=== PATIENT | male | born 1955 | race Caucasian/White ===

== ENCOUNTER 2017-01-30 16:21 | Emergency (ER) | payer OTHER ==
[~2017-01-30] VITALS: Ht 180.3 cm; Wt 85.5 kg
[~2017-01-30 16:21] MED LIST: ASCO500C6 PO; CHOL200025 PO; CYAN3000 SL; DOXY25TA44 PO; HYDR-4003 PO
[2017-01-30 16:31] VITALS: BP 146/88; PULSE 87; RESP 16; O2SAT 97
[2017-01-30 17:32] VITALS: BP 118/72; PULSE 81; RESP 18; O2SAT 94
--- NOTE | 2017-01-30 18:07 | ED.REPORT ---
HPI-Extremity Problem Lower Date of Service Jan 30, 2017 ED Provider: Dr. Germain Pt is a 61 y/o male w/ a hx of stage IV lung cancer, CAD, presenting to the ED c /o right calf pain onset 5 days ago. The patient had a varicose vein about his right calf and for 5 days it has been red and painful. He was instructed to come to the ED by his oncologist Dr. Mccarty to rule out DVT. Pt denies fever, chills, nausea, vomiting, CP, SOB. He has a history of gastric ulcer that was surgically repaired and has no active bleeding. Nursing Notes Stated Complaint: POSSIBLE BLOOD CLOT Chief Complaint: Extremity Trauma Nursing Notes Reviewed: Yes Allergies: Coded Allergies: No Known Allergies (Verified Allergy, Unknown, 01/30/17) Scheduled Ascorbic Acid (Vitamin C) 500 Mg Capsule.er 500 MG PO OCC Cholecalciferol (Vitamin D3) (Vitamin D3) 2,000 Unit Tablet 2,000 UNIT PO DAILY Cyanocobalamin (Vitamin B-12) (B-12) 3,000 Mcg Tab.subl 3,000 MCG SL DAILY Doxylamine Succinate (Nighttime Sleep-Aid) 25 Mg Tablet 2 TAB PO PRN Scheduled PRN Hydrocodone-Acetaminophen 5-325 mg (Hydrocodone-Acetaminophen 5-325 mg) 1 Each Tablet 1 TABLET PO Q6H PRN PRN For Pain General Time Seen by MD: 18:06 Chief Complaint Other (right calf pain) Hx Obtained From: Patient Arrived By: Walk-in Onset Occurred: 5 days ago Symptom Duration: Since onset Location: : Leg right Quality: Aching, Painful Severity: Current: Moderate Severity: Maximum: Moderate Past Medical History Past Medical History Notes: Oncology: Dr. 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 Respiratory: Denies: Non-productive cough, Shortness of breath Cardiovascular: Denies: Chest pain, Palpitations GI: Denies: Nausea, Vomiting Physical Exam Initial Vital Signs Vital Signs (First) Date Time Temp Pulse Resp B/P Pulse Ox O2 Delivery O2 Flow Rate FiO2 01/30/17 16:31 36.6 87 16 146/88 97 Room Air Initial VS: Reviewed, Vital signs normal Head / Eyes: Atraumatic, Normocephalic, PERRL ENT: Mucous membranes moist, Conjunctiva normal, No scleral icterus Respiratory: Breath sounds normal, Clear to auscultation, No respiratory distress Cardiovascular: Regular rate & rhythm, Heart sounds normal, Intact distal pulses Abdomen / GI: Soft, Non-tender, No guarding, No rebound, No distention Upper Extremities: Vascular intact, Neuro intact, No swelling, No tenderness Skin: Warm, Dry, No cyanosis Neurologic: Alert, Oriented, Nonfocal Psychiatric: Mood/affect normal, Behavior normal, Normal thought content Lower Extremity / Pelvis / MS: No deformity, Neurologic intact, Vascular intact , No ligamentous injury, Tendon function NL, No compartment syndrome, No circumferential injury Palpable cord starting from the medial right ankle and ending proximal to calf. Associated erythema and tenderness consistent with superficial thrombophlebitis Ankle / Foot: Non-tender, No deformity, Neurologic intact, Vascular intact, No ligamentous injury, Tendon function NL, No compartment syndrome, No circumferential injury, No edema General/Constitutional: Awake, Alert, No acute distress, Well appearing, Cooperative, Not toxic appearing Neck: Atraumatic, Supple, No meningismus, Full range of motion, No adenopathy Interpretation & Diagnostics Interpretation & Diagnostics: US RLE: IMPRESSION: Superficial thrombosed phlebitis with occlusive thrombus in the greater saphenous vein as above. Dictated by: Sophie Floyd M.D. on 01/30/2017 at 19:28 Approved by: Sophie Floyd M.D. on 01/30/2017 at 19:30 Lab Results Interpretation Result Diagram: 01/30/17 1835 01/30/17 1835 Test 01/30/17 18:35 White Blood Count 8.1th/mm3 (3.8-10.1) Red Blood Count 4.61mil/mm3 (4.40-5.80) Hemoglobin 14.9g/dL (13.8-17.2) Hematocrit 44.4% (41.0-50.0) Mean Corpuscular Volume 96.3fL (81-100) Mean Corpuscular Hemoglobin 32.3pg (27.0-35.0) Mean Corpuscular Hemoglobin Concent 33.6% (32.0-37.0) Red Cell Distribution Width 14.1% (12.3-15.4) Platelet Count 266bil/L (150-400) Neutrophils (%) (Auto) 61.1% (40-74) Lymphocytes (%) (Auto) 25.5% (14-46) Monocytes (%) (Auto) 9.0% (4-12) Eosinophils (%) (Auto) 3.8% (0-5) Basophils (%) (Auto) 0.4% (0-3) Sodium Level 135mEq/L (134-144) Potassium Level 5.2mEq/L (3.5-5.2) Chloride Level 97mEq/L (97-108) Carbon Dioxide Level 22mmol/L (18-29) Blood Urea Nitrogen 7mg/dL (6-24) Creatinine 0.69mg/dL (0.76-1.27) Estimat Glomerular Filtration Rate 125mL/min (>59) Glucose Level 90mg/dL (60-99) Calcium Level 10.2mg/dL (8.5-10.1) Total Bilirubin 0.2mg/dL (0.0-1.2) Aspartate Amino Transf (AST/SGOT) 18U/L (0-50) Alanine Aminotransferase (ALT/SGPT) 11U/L (0-44) Alkaline Phosphatase 45U/L (25-160) Total Protein 7.7g/dL (6.4-8.4) Albumin 4.3g/dL (3.4-5.0) Hold [place] Top Tube Received (Received) Re-Eval/Medical Decision Source of Hx: Old records, Private physician Re-Evaluation/Progress : Time of Eval: 18:46 Re-Evaluation/Progress Note: Pt rechecked. Informed pt of plan for treatment. Pt understands and agrees with plan for treatment. F/U and RTER warnings given. All questions addressed. Consultation : Referral / Consult Name: Alex Yun MD Call Returned at: 18:39 Machine Featheredger And Reducer: Agrees with eval, Agrees with plan Note: Discussed case with oncology, partner of Lul. Recommends 80 mg Lovenox BID to be taken until he can see Dr. Mccarty. Counseled Regarding: Diagnosis, Need for follow-up, When/why to return to ED Discharge & Departure Impression: Primary Impression: Superficial thrombophlebitis Superficial thrombophlebitis-Involved body area: lower extremity Laterality: right Qualified Code: I80.01 - Phlebitis and thrombophlebitis of superficial vessels of right lower extremity Disposition: Home Discharge Condition All VS Reviewed: Yes Condition: Stable Patient Instructions: Enoxaparin (Injection), Superficial Thrombophlebitis (ED) Additional Instructions: The ultrasound revealed you have a superficial thrombophlebitis, which is a venous blood clot that is not YET into the deep vein. Inject 80 mg Lovenox twice daily until you are able to see Dr. Mccarty. Return to the emergency department for worsening redness, pain, swelling, or for shortness of breath, chest pain, rapid heart rate, or for other concerning symptoms. If this ends up being a cellulitis you will need to be seen earlier and placed on antibiotics. Return for fever, chills, nausea, vomiting. Follow-up with Dr. Mccarty on Thursday. Call his office and tell them you were diagnosed with a superficial blood clot and were placed on Lovenox for 3 weeks or until seen by Dr. Mccarty. Do not take any anti-inflammatories or blood thinners while taking Lovenox. The lovenox is a potent anticoagulant. Do not participate in any activities that put you at risk for traumatic injury or any activities that put you at risk for internal hemorrhage. No alcohol use. Referrals: Nitza Diamond DO (PCP) Blair Vargas MD Attestation Portions of this note were transcribed by Teddy Moreira. I, Dr. Germain personally performed the history, physical exam and medical decision-making; I reviewed and confirmed the accuracy of the information in the transcribed note. Signed by Shalini Estrada, 01/30/17 - 1814 copies to: Blair Vargas MD; Nitza Diamond Todd P DO Jan 30, 2017 18:07 TEDDY MOREIRA Jan 30, 2017 18:10
[2017-01-30 18:42] LABS: BASOPHILS % (AUTO) 0.4 % (0-3); EOSINOPHILS % (AUTO) 3.8 % (0-5); Mean Corpuscular Hemoglobin 32.3 pg (27.0-35.0); Mean Corpuscular Volume 96.3 fL (81-100); NEUTROPHILS % (AUTO) 61.1 % (40-74); Platelet Count 266 bil/L (150-400)
[2017-01-30] MEDS ORDERED: HYDROmorphone 1 mg/mL Inj IM ONE (18:50)
--- NOTE | 2017-01-30 19:32 | DRSVH ---
PROCEDURE: US VEINOUS LEG DUPLEX UNILATERAL, RIGHT INDICATIONS: RIGHT LOWER LEG PAIN SWELLING TECHNIQUE: Real-time imaging, as well as color and pulse Doppler interrogation, were performed of the lower extr emity deep veins from the inguinal ligament to the popliteal fossa. COMPARISON: None. FINDINGS: There is occlusive thrombus within the greater saphenous vein from the distal thigh extendi ng to the level of the foot. Superficial thrombophlebitis is present. Deep veins demonstrate no evide nce of thrombosis. IMPRESSION: Superficial thrombosed phlebitis with occlusive thrombus in the greater saphenous vein as above. Dictated by: Sophie Floyd M.D. on 01/30/2017 at 19:28 Approved by: Sophie Floyd M.D. on 01/30/2017 at 19:30
[2017-01-30 19:34] VITALS: BP 139/75; PULSE 89; RESP 18; O2SAT 98
[2017-02-17] MEDS ORDERED: MULT-1018 PO (14:08)
[2017-02-17] MEDS ORDERED: ENOX80DI8 SUBQ (14:08)
[2017-02-20] MEDS ORDERED: TADA20TA PO (15:01)
[2017-03-13] MEDS ORDERED: DOCU-41 PO (11:18)
[2017-03-23] MEDS ORDERED: CYCL10TA9 PO (14:43)
== END 2017-01-30 19:36 | disposition home or self-care (01) ==
LOC: SED 16:21
DX: I80.01 Phlebitis and thrombophlebitis of superficial vessels of right lower extremity (principal); I25.10 Atherosclerotic heart disease of native coronary artery without angina pectoris; F17.200 Nicotine dependence, unspecified, uncomplicated
CPT/HCPCS: 36415; 80053; 85025; 93971; 96372; 99284; J1170; J1650

== ENCOUNTER 2017-02-23 09:00 | Day surgery (SDC) | payer OTHER ==
[~2017-02-23] VITALS: Ht 180.3 cm; Wt 83.2 kg
[~2017-02-23 09:00] MED LIST changes: +0.9% Sodium Chloride 1,000 ML IV PRN; -ASCO500C6 PO; -CHOL200025 PO; -CYAN3000 SL; -DOXY25TA44 PO; +MULT-1018 PO; +Sodium Chloride LOK Flush 10 mL Syringe IV PRN; +TADA20TA PO; +fentaNYL-PF 50 mCg/mL 2 mL Inj IVPUSH PRN
[2017-02-23 09:13] VITALS: BP 125/80; PULSE 76; RESP 16; O2SAT 99
[2017-02-23] MEDS ORDERED: LOV80 SUBQ (09:15)
--- NOTE | 2017-02-23 10:34 | PCM.ENDCOL ---
Colonoscopy Date of Service: Feb 23, 2017 Physician Jonathan Mclaughlin MD Pre Procedure Diagnosis: Abnormal CT and history of polyps Post Procedure Dx & Findings: Suspect stricture diverticuli polyps Procedure Colonoscopy PROCEDURE IN DETAIL: Prep adequate After unremarkable rectal examination the Olympus video colonoscope was inserted patient's anal canal and was advanced to possible stricture. At that point, air insufflation did not open up the lumen. We inserted water and lumen did not open up as well. Also in that area significant scarring noted. Also in the sigmoid colon there were diverticula Scope was withdrawn systematically. Visualized colonic mucosa showed healthy shiny mucosa with normal healthy- appearing vasculature. In the rectosigmoid junction there were 3 polyps. Two Polyps were 1 cm in size. These are resected completely using hot snare. The other polyp was 3 mm in size which was resected completely using cold snare. In the rectum retroflexion was done which showed hemorrhoids. Anal canal was inspected carefully on the way out and hemorrhoids noted. Impression Suspect stricture Polyps 3 status post complete removal Hemorrhoids Recommendation Double contrast barium enema Follow up in the GI clinic. Presedation Assessment Risks and Benefits Informed consent was obtained from the patient after all risks and benefits including but not limited to drug reaction, infection, pain, bleeding, perforation, as well as alternatives were discussed. Patient monitoring Continuous pulse oximetry, cardiac monitoring, blood pressure monitoring, IV access, and oxygen at 2L per nasal cannula. Periprocedural Fentanyl: Fentanyl 150mcg Incrementally Midazolam: Midazolam 6mg Incrementally Complications There were no periprocedural complications identified. Post Procedure Plan Post Procedure Recommendations 1. Restrict activities today. 2. Resume normal activities in the morning. 3. Resume medications. 4. Patient informed of normal post procedure side effects as bloating, drowsiness, blood streaking in the stool. 5. average risk CRCS. If colon polyps come back as: -Hyperplastic- can repeat colonoscopy in 10 years -Tubular adenoma- repeat colonoscopy in 5 years -Tubulovillous/villous adenoma- repeat colonoscopy in 3 years -If any dysplasia- return to clinic as soon as possible 6. Please don't hesitate to call me with any questions. Jonathan Mclaughlin MD Feb 23, 2017 10:34
[2017-02-23 10:39] VITALS: BP 111/68; PULSE 64; RESP 16; O2SAT 98
[2017-02-23 10:47] VITALS: BP 117/69; PULSE 72; RESP 14; O2SAT 96
[2017-02-23 10:57] VITALS: BP 133/64; PULSE 64; RESP 14; O2SAT 98
--- NOTE | 2017-02-24 11:48 | PATH ---
SURGICAL PATHOLOGY Attending Physician:Jonathan Mclaughlin M.D. CASE STATUS: Signed Out PATIENT NAME: ANGIE KAISER PID: [id number] : 1955 DATE COLLECTED:02/23/2017 17:20 SPECIMEN: Colon, Biopsy CLINICAL HISTORY: POLYPS 1). RECTAL SIGMOID POLYPS X3 FINAL DIAGNOSIS: 1.RECTOSIGMOID POLYPS: TUBULAR ADENOMA INVOLVING ALL THREE BIOPSY FRAGMENTS. ICD10 CODE D12.7 GROSS DESCRIPTION: The specimen is received in one formalin filled container labeled with the patient's name, sublabeled "rectal sigmoid polyps" and consists of 3 portions of tissue which aggregate to 0.9 x 0.6 x 0.5 CM. The specimen is entirely submitted in one cassette. 02/23/2017 [facility] MICRO DESCRIPTION: See diagnosis. ICD-9 CODES: CPT CODES: 1: 42447 Electronically Signed Out Moe Veronica MD [facility] Pathology [facility] [address], [place] [address] Technical component performed at [facility], [facility] [address], [place], [address]
[2017-03-13] MEDS ORDERED: DOCU-41 PO (11:18)
[2017-03-23] MEDS ORDERED: CYCL10TA9 PO (14:43)
== END 2017-02-23 23:59 | disposition home or self-care (01) ==
LOC: END 09:00
PROVIDERS: ATTEND Internal Medicine
DX: D12.7 Benign neoplasm of rectosigmoid junction (principal); K64.8 Other hemorrhoids; K52.9 Noninfective gastroenteritis and colitis, unspecified; Z86.010 Personal history of colon polyps; Z85.118 Personal history of other malignant neoplasm of bronchus and lung; Z92.21 Personal history of antineoplastic chemotherapy
CPT/HCPCS: 45385; 99153; G0500; J7030

== ENCOUNTER 2017-03-20 12:58 | Emergency (ER) | payer OTHER ==
[~2017-03-20] VITALS: Ht 180.3 cm; Wt 84.1 kg
[~2017-03-20 12:58] MED LIST changes: -0.9% Sodium Chloride 1,000 ML IV PRN; +DOCU-41 PO; -Sodium Chloride LOK Flush 10 mL Syringe IV PRN; -fentaNYL-PF 50 mCg/mL 2 mL Inj IVPUSH PRN
[2017-03-20 13:04] VITALS: BP 169/85; PULSE 107; RESP 12; O2SAT 95
--- NOTE | 2017-03-20 14:14 | ED.REPORT ---
HPI-General Illness Date of Service March 20, 2017 ED Provider: Omkar Trujillo MD 61 y/o male with stage 4 lung cancer presents to the ED complaining of left leg pain, onset 4-5 days. Associated sx include left leg swelling and erythema. He also reports discoloration of the toes on the left foot. The pt states his sx are similar to the sx he had when he was diagnosed with superficial thrombophlebitis in his right leg approximately a month ago. At the time, he was treated with Lovenox injections. The pt also complains of left flank pain which radiates up to his left shoulder. He states the pain worsens when he takes a deep breath or sits up with his legs hanging. Pt is currently taking hydrocodone for hip pain. Nursing Notes Stated Complaint: POSS BLOOD CLOTS IN LEGS/BACK PAIN Chief Complaint: Extremity Trauma Nursing Notes Reviewed: Yes Allergies: Coded Allergies: No Known Allergies (Verified Allergy, Unknown, 01/30/17) Scheduled Enoxaparin (Lovenox) 80 Mg/0.8 Ml Syringe 80 MG SUBQ Q12 Multivitamin (Multi Vitamin Daily) 1 Each Tablet 1 EACH PO DAILY Scheduled PRN Docusate Sodium (Colace) 100 Mg Capsule 100 MG PO QAM PRN PRN For Constipation Hydrocodone-Acetaminophen 5-325 mg (Hydrocodone-Acetaminophen 5-325 mg) 1 Each Tablet 1 TABLET PO Q6H PRN PRN For Pain Tadalafil (Cialis) 20 Mg Tablet 20 MG PO PRN PRN PRN for sexual activity As directed by physician. General Time Seen by MD: 14:13 Chief Complaint Other (Left leg pain) Hx Obtained From: Patient Arrived By: Walk-in Sudden in Onset?: No Onset Occurred: 4 days ago Symptom Duration: Since onset Location: : Leg left Quality: Painful Radiation: : Back: Shoulder Severity: Current: Moderate Severity: Maximum: Moderate Recent Healthcare: Recent doctor visit Similar Sx Previous: Yes Past Medical History Past Medical History Notes: Oncology: Dr. 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 Physical Exam Vital Signs Vital Signs Date Time Temp Pulse Resp B/P Pulse Ox O2 Delivery O2 Flow Rate FiO2 03/20/17 13:04 37.2 107 12 169/85 95 Room Air Initial VS: Reviewed Head / Eyes: Atraumatic, Normocephalic Neck: Supple, Full range of motion Respiratory: Breath sounds normal, No respiratory distress Neurologic: Alert, Oriented, Nonfocal General/Constitutional: Awake, Alert, Cooperative Cardiovascular: Heart rate NL, Regular rhythm, Heart sounds NL, Peripheral circulation NL, Pulses = bilaterally Tristen's sign negative Abdomen: Atraumatic, Soft, No guarding, No rebound Tenderness/Guarding/Rebound: Positive: Tender diffuse (Mild) Upper Extremities Upper Extremity / MS: Atraumatic, Full range of motion, No swelling, No erythema, Neurologic intact, Vascular intact Lower Extremity / Pelvis / MS: Atraumatic, Full range of motion Left Thigh: Positive: Erythema present, Tenderness present... (Mild mid-thigh ) Interpretation & Diagnostics PROCEDURE: US VENOUS LEG DUPLEX BILATERAL IMPRESSION: No DVT in the lower extremities. There is superficial thrombophlebitis involving the right greater saphenous vein. Dictated by: Black Donovan M.D. on 03/20/2017 at 16:24 Transcribed by: NEGIN on 03/20/2017 at 16:26 Lab Results Interpretation Test 03/20/17 13:32 03/20/17 14:39 Urine Color Yellow (YELLOW) Urine Appearance Clear (CLEAR,HAZY) Urine pH 6.5 (5.0-8.0) Urine Specific [place] 1.015 (1.003-1.035) Urine Protein Tracemg/dL (NEG,TRACE) Urine Glucose (UA) Negativemg/dL (NEGATIVE) Urine Ketones Tracemg/dL (NEGATIVE) Urine Occult Blood Trace (NEGATIVE) Urine Nitrite Negative (NEGATIVE) Urine Bilirubin Negative (NEGATIVE) Urine Urobilinogen Normalmg/dL (NORMAL) Urine Leukocyte Esterase Negative (NEGATIVE) Urine RBC 3-10/hpf (0-2) Urine WBC 0-5/hpf (0-5) Urine Epithelial Cells Occasional/hpf (NONE-MOD) Urine Crystals None seen (NONE SEEN) Urine Bacteria None/hpf (NONE-FEW) Urine Hyaline Casts None/lpf (NONE) Urine Granular Casts None seen (NONE SEEN) Urine Waxy Casts None seen (NONE SEEN) Urine Red Blood Cell Casts None seen (NONE SEEN) Urine White Blood Cell Casts None seen (NONE SEEN) Urine Mucus Present (None Seen) Urine Trichomonas None seen (NONE SEEN) Urine Yeast None (NONE SEEN) Urinalysis Comment None Urine Culture Reflexed Not indicated Hold Urine Received (Received) Re-Eval/Medical Decision Source of Hx: Old records Time of Eval: 15:20 Re-Evaluation/Progress Note: military technician reports no DVT seen. Time of Eval: 15:53 Patient Status: Condition improved Re-Evaluation/Progress Note: Rechecked pt. Discussed lab, imaging results and diagnosis. Informed the pt Dr. Mccarty will be consulted. Time of Eval: 16:25 Re-Evaluation/Progress Note: Rechecked pt. Discussed consult with Dr. Mccarty and diagnosis. Informed the pt of the plan to discharge. Pt understands and agrees with plan. F/U instructions and RTER warning given. All questions addressed. Consultation : Referral / Consult Name: Blair Vargas MD Consulted With: Cigarette Making Machine Hopper Feeder Call Returned at: 16:23 Summer Counselor: Will see in office, Agrees with eval, Agrees with plan Note: Dr. Vargas recommends prescription of Lovenox and call to make an appointment. Counseled Regarding: Diagnosis, Lab results, Need for follow-up, When/why to return to ED Discharge & Departure Primary Impression: Superficial thrombophlebitis Superficial thrombophlebitis-Involved body area: lower extremity Laterality: left Qualified Code: I80.02 - Phlebitis and thrombophlebitis of superficial vessels of left lower extremity Disposition: Home Discharge Condition All VS Reviewed: Yes Patient Instructions: Superficial Thrombophlebitis (ED) Additional Instructions: Your imaging results show superficial thrombophlebitis. I consulted Dr. Vargas who recommends a Lovenox prescription. Follow up with Dr. Vargas within the next 2 weeks. Call Thursday for an appointment. Return to the emergency department in case of severe pain, swelling or any new or concerning symptoms. Referrals: Blair Vargas MD (PCP) Scribe Attestation Portions of this note were transcribed by Dang Dai. I, , personally performed the history, physical exam and medical decision-making;I reviewed and confirmed the accuracy of the information in the transcribed note. Signed by Shalini Perez. 03/20/17 [id number] copies to: Blair Vargas MD, Kirk H MD March 20, 2017 14:14 Dang Dai March 20, 2017 14:23
[2017-03-20] MEDS ORDERED: HYDROcodone-APAP 7.5-325 mg Tablet PO ONE (14:25)
[2017-03-20 15:00] LABS: APPEARANCE,URINE CLEAR (CLEAR,HAZY); COLOR,URINE YELLOW (YELLOW); OCCULT BLOOD,URINE TRACE (NEGATIVE); PH,URINE 6.5 (5.0-8.0); UROBILINOGEN,URINE NORMAL (NORMAL)
--- NOTE | 2017-03-20 16:26 | DRSVH ---
PROCEDURE: US VENOUS LEG DUPLEX BILATERAL INDICATIONS: redness and swelling TECHNIQUE: Real-time imaging, as well as color and pulse Doppler interrogation, were performed of the deep veins of both legs from the inguinal ligament to the popliteal fossa. COMPARISON: [facility], US, US VENOUS LEG DPLX UNI RT, 02/18/2017, 12:36. FINDINGS: The deep veins are normally compressible, and free of intraluminal thrombus. Color and pu lse Doppler demonstrate normal phasic intravascular flow. There is normal augmentation response to d istal compression maneuver. Filling defects in the greater saphenous vein are consistent with superf icial thrombophlebitis. IMPRESSION: 1. No DVT in the lower extremities. 2. Superficial thrombophlebitis involving greater saphenous veins bilaterally. Dictated by: Black Donovan M.D. on 03/20/2017 at 16:24 Transcribed by: NEGIN on 03/20/2017 at 16:26 Approved by: Black Donovan M.D. on 03/20/2017 at 17:26
[2017-03-20] MEDS ORDERED: LOV80 SUBQ (16:29)
[2017-03-23] MEDS ORDERED: CYCL10TA9 PO (14:43)
== END 2017-03-20 16:41 | disposition home or self-care (01) ==
LOC: SED 12:58
DX: I80.02 Phlebitis and thrombophlebitis of superficial vessels of left lower extremity (principal); R10.32 Left lower quadrant pain; M25.551 Pain in right hip; I25.10 Atherosclerotic heart disease of native coronary artery without angina pectoris; F17.200 Nicotine dependence, unspecified, uncomplicated

== ENCOUNTER 2017-04-03 15:17 | Inpatient (IN) | payer OTHER, MEDICAID ==
[~2017-04-03] VITALS: Ht 180.3 cm; Wt 81.9 kg
[~2017-04-03 15:17] MED LIST changes: +CYCL10TA9 PO
[2017-04-03 15:18] VITALS: BP 156/82; PULSE 96; RESP 22; O2SAT 96
--- NOTE | 2017-04-03 15:43 | ED.REPORT ---
HPI-Chest Pain 40 and Over Date of Service Apr 03, 2017 ED Provider: Osman Costa MD Pt is a 61 y/o male who just started anticoagulation on Warfarin yesterday w/ a hx of stage IV lung CA with mets to the brain, current LLE DVT, prior PE, CAD , emphysema, presenting to the ED c/o gradually worsening right-sided CP with radiation to the shoulder and neck onset 4 days ago. The patient underwent a gamma knife radiation therapy for brain metastases 4 days ago and reports he was in an awkward position for 40 minutes which may have caused him to strain his right chest muscles. He describes his pain as sharp and pleuritic. The patient was previously on a 4 week course of Lovenox for a current LLE DVT and was just started on Warfarin due to multiple prior DVTs and PEs and had all of these therapies stopped until yesterday due to an upcoming colonoscopy. He c/o associated SOB. He denies fever, chills, cough. His pain is significantly exacerbated by bending or twisting movements and is relieved by sitting up and leaning forward. He had similar symptoms 20 years ago at which time he was diagnosed with pleurisy. Nursing Notes Stated Complaint: RIGHT SIDE PAIN/CHEST PAIN Chief Complaint: Chest Pain Nursing Notes Reviewed: Yes (Panviva not reconciled) Allergies: Coded Allergies: No Known Allergies (Verified Allergy, Unknown, 01/30/17) Scheduled Multivitamin (Multi Vitamin Daily) 1 Each Tablet 1 EACH PO DAILY Scheduled PRN Cyclobenzaprine (Cyclobenzaprine) 10 Mg Tablet 10 MG PO TID PRN PRN Spasm Docusate Sodium (Colace) 100 Mg Capsule 100 MG PO QAM PRN PRN For Constipation Hydrocodone-Acetaminophen 5-325 mg (Hydrocodone-Acetaminophen 5-325 mg) 1 Each Tablet 1 TABLET PO Q6H PRN PRN For Pain oxyCODONE (oxyCODONE) 5 Mg Tablet 5-10 MG PO Q4H PRN PRN For Pain General Time Seen by MD: 15:39 Chief Complaint Chest pain Hx Obtained From: Patient Arrived By: Walk-in Sudden in Onset?: No Onset Occurred: 3 days ago Symptom Duration: Since onset Location: : Chest right Quality: Pleuritic, Sharp, Stabbing Radiation: : Neck: Shoulder right Severity: Current: Moderate Severity: Maximum: Moderate Recent Healthcare: Recent doctor visit, Recent hospitalization, Recent testing Similar Sx Previous: Yes Risk Factors Well's Criteria for PE Clin suspicion of DVT (3), Most likely due to PE (3), Prior DVT or PE (1.5), Cancer Tx past 6mo (1) Well's PE Score: >6 pts (high risk 66%) Past Medical History Past Medical History Notes: Oncology: Dr. 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, mets to brain Severe osteoarthritis of the right hip Chronic alcoholism Mild emphysema CAD Current LLE DVT - as of 04/03/17 Past Surgical History Gastric ulcer repair Smoking History Current Every Day Smoker Social History Alcohol Use: >5 per day Drug Use: THC Ambulatory Status Independent Review of Systems Constitutional: Denies: Chills, Fever Respiratory: Reports: Dyspnea on exertion, Pleuritic pain, Shortness of breath , Denies: Non-productive cough Cardiovascular: Reports: Chest pain Musculoskeletal: Reports: Neck pain (Tight feeling) Complete sys rev & neg: except as marked. Physical Exam Initial Vital Signs Vital Signs (First) Date Time Temp Pulse Resp B/P Pulse Ox O2 Delivery O2 Flow Rate FiO2 04/03/17 15:18 37.4 96 22 156/82 96 Room Air Initial VS: Reviewed, Vital signs normal Head / Eyes: Atraumatic, Normocephalic, PERRL ENT: Mucous membranes moist, Conjunctiva normal, No scleral icterus Neck: Supple, Full range of motion Skin: Warm, Dry, No cyanosis Neurologic: Alert, Oriented, Nonfocal Psychiatric: Mood/affect normal, Behavior normal General/Constitutional: Awake, Alert Distress / Hydration: Positive: Distress moderate Appearance / Presentation: Positive: Uncomfortable Respiratory / Chest: Atraumatic, Breath sounds = bilat Not tachypneic. Significant discomfort with pleuritic pain. Slightly diminished breath sounds Cardiovascular: Heart rate NL, Regular rhythm, Heart sounds NL, No gallop, No murmurs, No rubs Heart Rate / Rhythm: Negative: Tachycardia Abdomen: Atraumatic, Soft, Non-tender Lower Extremity / Pelvis / MS: Atraumatic, No deformity, Neurologic intact, Vascular intact Left Leg / Calf: Positive: Swelling present... (Moderate) History of DVT in legs Interpretation & Diagnostics Lab Results Interpretation Result Diagram: 6/2/17 1555 04/03/17 1555 Test 04/03/17 15:55 White Blood Count 12.1th/mm3 (3.8-10.1) Red Blood Count 4.66mil/mm3 (4.40-5.80) Hemoglobin 15.3g/dL (13.8-17.2) Hematocrit 44.2% (41.0-50.0) Mean Corpuscular Volume 94.8fL (81-100) Mean Corpuscular Hemoglobin 32.8pg (27.0-35.0) Mean Corpuscular Hemoglobin Concent 34.6% (32.0-37.0) Red Cell Distribution Width 13.5% (12.3-15.4) Platelet Count 334bil/L (150-400) Neutrophils (%) (Auto) 76.2% (40-74) Lymphocytes (%) (Auto) 12.2% (14-46) Monocytes (%) (Auto) 9.9% (4-12) Eosinophils (%) (Auto) 1.2% (0-5) Basophils (%) (Auto) 0.2% (0-3) Prothrombin Time 10.6sec (8.1-12.5) Prothromb Time International Ratio 0.99ratio Sodium Level 135mEq/L (134-144) Potassium Level 4.1mEq/L (3.5-5.2) Chloride Level 95mEq/L (97-108) Carbon Dioxide Level 20mmol/L (18-29) Blood Urea Nitrogen 9mg/dL (6-24) Creatinine 0.49mg/dL (0.76-1.27) Estimat Glomerular Filtration Rate 185mL/min (>59) Glucose Level 97mg/dL (60-99) Calcium Level 9.4mg/dL (8.5-10.1) Magnesium Level 2.1mg/dL (1.6-2.6) Total Bilirubin 0.5mg/dL (0.0-1.2) Aspartate Amino Transf (AST/SGOT) 118U/L (0-50) Alanine Aminotransferase (ALT/SGPT) 168U/L (0-44) Alkaline Phosphatase 68U/L (25-160) Troponin T < 0.010ug/L (0.0-0.011) Total Protein 7.8g/dL (6.4-8.4) Albumin 3.8g/dL (3.4-5.0) Lab Results Interpretation: CBC positive leukocytosis CMP normal Troponin negative INR subtherapeutic as expected, having just started warfarin yesterday ECG Interpretation ECG Interpretation: No ischemic changes. No S1Q3T3 No interval changes compared with 09/2016 Time: 15:46 Interpreted by: ED physician Normal ECG Interpretation: Normal sinus rhythm (Rate of 97) X-Ray Chest Interpretation Chest Xray Interpretation: IMPRESSION: 1. Probable mild atelectasis in the lung bases without definite acute cardiopulmonary disease. Dictated by: Jovi Noel M.D. on 04/03/2017 at 16:20 Approved by: Jovi Noel M.D. on 04/03/2017 at 16:21 View: Portable, 1 view Interpretation / Wet Read by: Interpret - Radiologist CT Chest Interpretation IMPRESSION: Bilateral pulmonary emboli predominately on the right but also on the left involving the middle and lower thirds of the lung parenchyma/pulmonary arteries. Mild alveolar edema within the right lower lung suggest mild ischemic injury in the area of maximal load of pulmonary emboli. Dictated by: Mitchel Fried M.D. on 04/03/2017 at 17:31 Study type: CT pulm angiogram Interpretation / Wet Read by: Interpret - Radiologist Re-Eval/Medical Decision Med Decision/Clinical Course This is a 61-year-old male with known lung CA, has had metastases to the brain is undergoing gamma knife therapy, who is had problems with thrombophlebitis of the legs. Apparently he was on 4 weeks of Lovenox therapy, and then developed worsening following bronchitis with extension into a deep vein of the left leg- but tells me that insurance refused to cover his anticoagulation at that time so has not been on it. He had a gamma knife session on Thursday, has been having worsening pleuritic chest pain since then, and so the oncology center she did get him started on warfarin yesterday, was able given some Lovenox in the clinic yesterday and is coming back in for a dose of Lovenox today which he did receive-but is noted to have severe right-sided pleuritic chest pain, shortness of breath-so was sent to the ED. She appears clinically uncomfortable on clutching his right-sided describing severe pleuritic pain. I is not tachycardic, hypoxic, or hypotensive. He does have clinical findings of the left lower extremity DVT on clinical exam. The patient is empirically started on a heparin drip given the high risk presentation. The chest x-ray is negative. CT scans positive for bilateral pulmonary emboli. His troponin level is negative. Without a bump. He is not require or merit tPA at this time. The plan is admission with continued anticoagulation. At this point is social work consultation versus since and getting him in area anticoagulation medications is indicated and been requested. [facility]. The patient's using titrated pain medicine for pain control. Source of Hx: Old records Time of Eval: 17:26 Re-Evaluation/Progress Note: Pt rechecked. Informed pt of need for admission. Pt understands and agrees with plan for admission. All questions addressed. Consultation : Referral / Consult Name: Liban Lopez MD Consulted With: Hospitalist Requested Call at: 17:24 Call Returned at: 17:24 Compliance Consultant: Will see patient, Agrees with eval, Agrees with plan, Accepts admit Differential Diagnosis: Positive: Chest pain, acute, Pulmonary embolism, Negative: Acute coronary syndrome, Dysrhythmia, Gun shot wound chest, Hypertroph cardiomyopathy, Pneumomediastinum, Pneumonia, Pneumothorax, Pulmonary edema Counseled Regarding: Diagnosis, Lab results, Need for admission Discharge & Departure Primary Impression: Pulmonary emboli Pulmonary embolism type: other Chronicity: acute Acute cor pulmonale presence: without acute cor pulmonale Qualified Code: I26.99 - Other pulmonary embolism without acute cor pulmonale Additional Impression: Left leg DVT Affected thrombotic vein of extremity: unspecified vein of extremity Chronicity: acute Qualified Code: I82.402 - Acute embolism and thrombosis of unspecified deep veins of left lower extremity Disposition: ADMITTED TO HOSPITAL Discharge Condition All VS Reviewed: Yes Condition: Stable Referrals: Nitza Diamond DO (PCP) Crit Care Except Billable Proc Time Spent: 30-74 minutes Services Performed: Patient management by me, Time spent at bedside, Reviewing test results, Reviewing imaging, Discussing patient care, Documentation in record Scribe Attestation Portions of this note were transcribed by Teddy Moreira and Cat Aiken. I, Dr. Costa personally performed the history, physical exam and medical decision -making; I reviewed and confirmed the accuracy of the information in the transcribed note. Signed by: Teddy Moreira and Shalini Casas, 04/03/17 and 16:50. copies to: Nitza Diamond Matthew F MD Apr 03, 2017 15:43 Cat Brown Apr 03, 2017 15:58 TEDDY MOREIRA Apr 03, 2017 16:50
[2017-04-03 15:59] VITALS: BP 153/77; PULSE 97; RESP 22; O2SAT 97
[2017-04-03] MEDS ORDERED: Heparin 5,000 Unit/mL Inj IVPUSH ONE (16:00)
[2017-04-03] MEDS ORDERED: HYDROmorphone 1 mg/mL Inj IVPUSH ONE (16:00)
[2017-04-03] MEDS ORDERED: Ondansetron 2 mg/mL 2 mL Inj IVPUSH ONE (16:00)
[2017-04-03] MEDS ORDERED: Heparin 25K Unit/500mL 0.45 NS 25,000 UNIT in IV Premix 1 EACH IV ONE (16:00)
[2017-04-03 16:12] LABS: BASOPHILS % (AUTO) 0.2 % (0-3); EOSINOPHILS % (AUTO) 1.2 % (0-5); MONOCYTES % (AUTO) 9.9 % (4-12); Mean Corpuscular Hemoglobin 32.8 pg (27.0-35.0); Mean Corpuscular Volume 94.8 fL (81-100); NEUTROPHILS % (AUTO) 76.2 % (40-74); Platelet Count 334 bil/L (150-400)
--- NOTE | 2017-04-03 16:23 | DRSVH ---
PROCEDURE: X-RAY CHEST ONE VIEW, PORTABLE ([id number]) INDICATIONS: CHEST PAIN TECHNIQUE: One view of the chest was acquired. COMPARISON: None. FINDINGS: Surgical changes and devices: None. Lungs and pleura: No pleural effusions or pneumothorax. There are a few linear peripheral opacities in the lung bases likely representing atelectasis. Mediastinum: Mediastinal contours appear normal. Heart size is normal. Bones and chest wall: No suspicious bony lesions. Overlying soft tissues appear unremarkable. IMPRESSION: 1. Probable mild atelectasis in the lung bases without definite acute cardiopulmonary disease. Dictated by: Jovi Noel M.D. on 04/03/2017 at 16:20 Approved by: Jovi Noel M.D. on 04/03/2017 at 16:21
[2017-04-03 16:28] LABS: INR 0.99 ratio
[2017-04-03 16:35] LABS: TROPONIN T < 0.010 ug/L (0.0-0.011)
[2017-04-03 16:46] LABS: Magnesium 2.1 mg/dL (1.6-2.6)
[2017-04-03 16:56] VITALS: BP 134/72; PULSE 94; RESP 30; O2SAT 94
[2017-04-03] MEDS: HYDROmorphone 0.5 mg/0.5 mL iSecure Syringe IVPUSH PRN ×3 (17:31→18:57)
[2017-04-03 17:40] VITALS: BP 156/87; PULSE 92; RESP 30; O2SAT 95
--- NOTE | 2017-04-03 17:41 | DRSVH ---
PROCEDURE: CT ANGIO CHEST PULMONARY EMBOLISM ([id number]) INDICATIONS: Pleuritic R CP, LLE DVT TECHNIQUE: After the administration of intravenous contrast, 2 mm thick sections acquired from the pulmonary api dio to the posterior costophrenic angles. 3-dimensional maximum intensity projection (MIP) coronal a nd sagittal reformats were then acquired through the thorax. For radiation dose reduction, the follo wing was used: automated exposure control, adjustment of mA and/or kV according to patient size. COMPARISON: None. FINDINGS: Image quality: Excellent. Pulmonary arteries: Pulmonary arteries are normal in size, and demonstrate no intraluminal filling d efects to suggest central pulmonary embolism. Lungs and pleura: Lungs are clear. No pleural effusions or pneumothorax. Central and peripheral ai rways are patent. Mediastinum: Heart size is normal, without pericardial effusion. No mediastinal or hilar adenopathy . Thoracic aorta is normal in caliber and enhancement. Esophagus is normal in caliber, without hiat al hernia. Bones and chest wall: No suspicious bony lesions. Ribs and thoracic spine appear intact throughout. Thyroid gland appears normal where well visualized. No axillary or supraclavicular adenopathy. Abdomen: Visualized upper abdominal solid organs appear normal in the early arterial phase of enhanc ement. IMPRESSION: Bilateral pulmonary emboli predominately on the right but also on the left involving the middle and lower thirds of the lung parenchyma/pulmonary arteries. Mild alveolar edema within the r ight lower lung suggest mild ischemic injury in the area of maximal load of pulmonary emboli. Dictated by: Mitchel Fried M.D. on 04/03/2017 at 17:31 Approved by: Mitchel Fried M.D. on 04/03/2017 at 17:40
[2017-04-03] MEDS ORDERED: Alum-Mag Hydrox-Simeth 30 mL Suspension PO PRN (18:10)
[2017-04-03] MEDS ORDERED: Ondansetron 2 mg/mL 2 mL Inj IVPUSH PRN (18:10)
[2017-04-03] MEDS ORDERED: Polyethylene Glycol (PEG) 17 Gm Powder PO PRN (18:10)
[2017-04-03] MEDS ORDERED: OXYC5TAB72 PO (18:11)
[2017-04-03] MEDS ORDERED: Heparin 5,000 Unit/mL Inj IVPUSH PRN (18:15)
[2017-04-03] MEDS ORDERED: Heparin 25K Unit/500mL 0.45 NS 25,000 UNIT in IV Premix 1 EACH IV SCH (18:15)
--- NOTE | 2017-04-03 18:24 | PCM.HPMED ---
Subjective Date of Service Apr 03, 2017 Primary Provider: Admitting Physician: Liban Lopez MD Primary Care Physician: Nitza Diamond DO Attending Physician: Liban Lopez MD Admit Status: From the Emergency Department Chief Complaint: Chest pain with deep inspiration History of Present Illness: Matthew Reynolds is a 61 year old man with a PMH of stage IV lung cancer with mets to the brain s/p chemotherapy and Gamma knife procedure 4 days ago. The patient was previously on a 4 week course of Lovenox therapy which ended about 3 weeks ago for a LLE DVT, he then presented to the ED on 03/18 with a LLE SVT, because he was about to undergo a colonoscopy and the aforementioned Gamma knife procedure it was determined that he should without further anti-coagulation beyond aspiring until after his Gamma knife procedure; he just restarted Warfarin yesterday. 4 days following his Gamma knife procedure he began to experience right sided chest pain that was aggravated by deep inspiration, he initially attributed this to the awkward position he was in for the procedure. However, over the ensuing days this pain worsened, and at the insistence of his he presented to the ED for further evaluation. He denies chest pain, hemoptysis, palpitations, abdominal pain. He states that his left leg has remained swollen and tender without much improvement since his ER visit on . He continues to smoke 1/2-1 pack daily, and >5 alcoholic beverages daily. In the ED that patient was normotensive with a HR in the 90s, ECG not without S1Q3T3 or ischemic changes initial trop negative. CT angio revealed BL PE R>L with mild alveolar edema within the right lung suggestive of mild ischemic injury in the area of maximal load of pulmonary emboli. He was started on Heparin drip in the ED and given Dilaudid IV for pain control to good but transient effect. Review of Systems: Comprehensive ROS negative except as listed above in the HPI Allergies Coded Allergies: No Known Allergies (Verified Allergy, Unknown, 01/30/17) Home Medications Cyclobenzaprine (Cyclobenzaprine) 10 Mg Tablet 10 MG PO TID PRN PRN Spasm Docusate Sodium (Colace) 100 Mg Capsule 100 MG PO QAM PRN PRN For Constipation Hydrocodone-Acetaminophen 5-325 mg (Hydrocodone-Acetaminophen 5-325 mg) 1 Each Tablet 1 TABLET PO Q6H PRN PRN For Pain Tadalafil (Cialis) 20 Mg Tablet 20 MG PO PRN PRN PRN for sexual activity PMH Non-small cell adenocarcinoma of the right lung - Stage IV, mets to brain Severe osteoarthritis of the right hip Chronic alcoholism Mild emphysema CAD . Surgical History Gastric ulcer repair Family History Family history of cancer of unknown type in multiple relatives Social History Hx Alcohol Use: Yes (rare) Hx Substance Use: Yes Smoking Status: Current Every Day Smoker Exam Vital Signs Vital Sign - Last Date Time Temp Pulse Resp B/P Pulse Ox O2 Delivery O2 Flow Rate FiO2 04/03/17 17:40 92 30 156/87 95 Room Air 04/03/17 15:18 37.4 Exam Gen: A/O x3 pleasant cooperative gentleman in moderate acute distress secondary to chest pain with inspiration Neck: Supple, non tender, no JVD, Full ROM HEENT: PERRL, EOMI, no scleral icterus, no conjunctival pallor, mucous membranes slightly dry, poor dentition CV: RRR, no murmurs rubs or gallops Resp: Very shallow breathing with inability to take deep breaths due to pain, no wheezing rales or rhonchi Abd: Soft non tender, no organomegaly, no rebound guarding or tenderness Extr: L unilateral moderate non pitting edema with tenderness squeeze of the calf, no cyanosis or clubbing Neuro: CN 2-12 grossly intact, no focal neurologic deficit Psych: Patient greatly discouraged by new diagnosis, otherwise pleasant and appropriate mood and affect. Lab and Diagnostics Labs Item Value Date Time Red Blood Count 4.66 mil/mm3 04/03/17 1555 Mean Corpuscular Hemoglobin 32.8 pg 04/03/17 1555 Mean Corpuscular Hemoglobin Concent 34.6 % 04/03/17 155 Red Cell Distribution Width 13.5 % 04/03/17 1555 Neutrophils (%) (Auto) 76.2 % H 04/03/17 1555 Lymphocytes (%) (Auto) 12.2 % L 04/03/17 1555 Monocytes (%) (Auto) 9.9 % 04/03/17 1555 Eosinophils (%) (Auto) 1.2 % 04/03/17 1555 Basophils (%) (Auto) 0.2 % 04/03/17 1555 Estimat Glomerular Filtration Rate 185 mL/min 04/03/17 1555 Calcium Level 9.4 mg/dL 04/03/17 1555 Magnesium Level 2.1 mg/dL 04/03/17 1555 Total Bilirubin 0.5 mg/dL 04/03/17 1555 Aspartate Amino Transf (AST/SGOT) 118 U/L H 04/03/17 1555 Alanine Aminotransferase (ALT/SGPT) 168 U/L H 04/03/17 1555 Alkaline Phosphatase 68 U/L 04/03/17 1555 Troponin T < 0.010 ug/L 04/03/17 155 Total Protein 7.8 g/dL 04/03/17 1555 Albumin 3.8 g/dL 04/03/17 155 Prothrombin Time 10.6 sec 04/03/17 155 Prothromb Time International Ratio 0.99 ratio 04/03/17 155 Result Diagram: 04/03/17 15504/03/17 155 X-Rays, CTs and MRIs X-RAY CHEST ONE VIEW, PORTABLE IMPRESSION: 1. Probable mild atelectasis in the lung bases without definite acute cardiopulmonary disease. Dictated by: Jovi Noel M.D. on 04/03/2017 at 16:20 Approved by: Jovi Noel M.D. on 04/03/2017 at 16:21 CT ANGIO CHEST PULMONARY EMBOLISM IMPRESSION: Bilateral pulmonary emboli predominately on the right but also on the left involving the middle and lower thirds of the lung parenchyma/pulmonary arteries. Mild alveolar edema within the right lower lung suggest mild ischemic injury in the area of maximal load of pulmonary emboli. Dictated by: Mitchel Fried M.D. on 04/03/2017 at 17:31 Approved by: Mitchel Fried M.D. on 04/03/2017 at 17:40 . Assessment & Plan Matthew Reynolds is a 61 year old gentleman with a PMH of stage IV lung cancer with mets to the brain s/p chemotherapy and gamma knife procedure 4 days ago and multiple thrombotic events in the past currently not anti-coagulated other than Aspirin and single dose of Warfarin yesterday and SVT or DVT of LLE diagnosed 2 weeks ago. He presents with a 4 day history of chest pain with deep inspiration found to be secondary to BL PE in the ED. Bilateral R>L pulmonary embolus, POA, acute. Active -Heparin drip initiated -ECHO to evaluate for RV strain and possible progression to EKOS -Tele monitoring -Pulm concsult in the AM given underlying history of Lung Cancer Stage IV Lung Cancer, POA, chronic. Active -Alert Dr. Mccarty to patient's admission Chronic Pain secondary to the above, POA, acute on chronic. Active -Oxycodone Q4 PRN -Continue home Cyclobenzaprine Tobacco abuse, POA, chronic. Active -Patient counseled about tobacco cessation -Nicotine patch 21 mcg - consult for tobacco cessation Alcohol use disorder, POA, chronic. Active -Current >5 drinks daily -CICT protocol Disposition: Inpatient, anticipated length of stay >2 midnights due to severity of condition and complexity of treatment plan. Pain Evaluation: Adequate Pain Control GI Prophylaxis: H2 anny VTE Prophylaxis: Other (Heparin drip) Resuscitation Status: DNR/DNI:Do Not Resuscitate/Intubate Attending Statement The patient was seen and examined together with Dr. Zeng on 04/03/2017 and I agree with the history, exam and plan as outlined in the note above. . Jayesh Zeng DO Apr 03, 2017 18:24 Liban Lopez MD Apr 04, 2017 16:53
[2017-04-03 19:29] VITALS: BP 151/93; PULSE 80; RESP 22; O2SAT 93
[2017-04-03] MEDS: oxyCODONE-Acetamin 10-325 mg Tablet PO PRN ×2 (19:41→23:54)
[2017-04-03 23:47] VITALS: BP 141/74; PULSE 80; RESP 20; O2SAT 88
[2017-04-04] VITALS (7 sets, daily range): BP systolic 114–145; BP diastolic 65–83; PULSE 70–92; RESP 20–22; O2SAT 90–97
[2017-04-04] MEDS: oxyCODONE-Acetamin 10-325 mg Tablet PO PRN ×5 (04:17→20:40)
[2017-04-04 07:52] LABS: BASOPHILS % (AUTO) 0.4 % (0-3); EOSINOPHILS % (AUTO) 3.7 % (0-5); MONOCYTES % (AUTO) 12.1 % (4-12); Mean Corpuscular Hemoglobin 32.3 pg (27.0-35.0); Mean Corpuscular Volume 97.1 fL (81-100); NEUTROPHILS % (AUTO) 68.4 % (40-74); Platelet Count 288 bil/L (150-400)
[2017-04-04 08:15] LABS: INR 0.99 ratio
[2017-04-04] MEDS ORDERED: Non-Formulary Medication (Multivitamin (Multi Vitamin Daily) 1 EACH) PO SCH (08:30)
[2017-04-04] MEDS: Multivit-Miner-Folic Acid-Iron Tablet PO SCH (08:42)
[2017-04-04] MEDS: HYDROmorphone 0.5 mg/0.5 mL iSecure Syringe IVPUSH PRN (08:52)
--- NOTE | 2017-04-04 11:50 | PCM.PNMED ---
Subjective Date of Service Apr 04, 2017 Subjective Patient primary concern remains pain with deep inspiration, he states that this is fairly well controlled with PO analgesia, but feels as if he still requires availability of IV meds for breakthrough pain. Otherwise he states that he is doing well, he denies nausea vomiting, diarrhea or abdominal pain. Of note overnight, pharmacy was able to discern that the patient had received fondaparinux at the cancer center prior to admission, and per their guidelines elected to withhold the patient's heparin drip until 24 hours had elapsed since administration of that agent which will be approximately 15:30 today. Comprehensive ROS negative except as outlined above. Exam Vital Signs Vital Sign - Last Date Time Temp Pulse Resp B/P Pulse Ox O2 Delivery O2 Flow Rate FiO2 04/04/17 10:35 70 04/04/17 08:44 36.8 22 123/73 96 Nasal Cannula 2.00 Exam Gen: A/O x3 pleasant cooperative gentleman in mild acute distress secondary to chest pain with inspiration slightly improved since yesterday Neck: Supple, non tender, no JVD, Full ROM HEENT: PERRL, EOMI, no scleral icterus, no conjunctival pallor, mucous membranes slightly dry, poor dentition CV: RRR, no murmurs rubs or gallops Resp: Very shallow breathing with inability to take deep breaths due to pain, no wheezing rales or rhonchi Abd: Soft non tender, no organomegaly, no rebound guarding or tenderness Extr: L unilateral moderate non pitting edema with tenderness squeeze of the calf, no cyanosis or clubbing Neuro: CN 2-12 grossly intact, no focal neurologic deficit Psych: Patient greatly discouraged by new diagnosis, otherwise pleasant and appropriate mood and affect. IVs and Medications IV Fluids NS delivered with Heparin drip Medications Reviewed: Medications were reviewed in detail Lab and Diagnostics Item Value Date Time Red Blood Count 4.46 mil/mm3 04/04/17 0740 Mean Corpuscular Volume 97.1 fL 04/04/17 0740 Mean Corpuscular Hemoglobin 32.3 pg 04/04/17 0740 Mean Corpuscular Hemoglobin Concent 33.3 % 04/04/17 0740 Red Cell Distribution Width 13.6 % 04/04/17 0740 Neutrophils (%) (Auto) 68.4 % 04/04/17 0740 Lymphocytes (%) (Auto) 15.0 % 04/04/17 07 Monocytes (%) (Auto) 12.1 % H 04/04/17 07 Eosinophils (%) (Auto) 3.7 % 04/04/17 07 Basophils (%) (Auto) 0.4 % 04/04/17 07 Estimat Glomerular Filtration Rate 147 mL/min 04/04/17 07 Calcium Level 9.6 mg/dL 04/04/17 07 Total Bilirubin 0.6 mg/dL 04/04/17 07 Aspartate Amino Transf (AST/SGOT) 46 U/L 04/04/17 07 Alanine Aminotransferase (ALT/SGPT) 108 U/L H 04/04/17 07 Alkaline Phosphatase 61 U/L 04/04/17 07 Total Protein 6.7 g/dL 04/04/17 07 Albumin 3.7 g/dL 04/04/17 07 Prothrombin Time 10.6 sec 04/04/17 07 Prothromb Time International Ratio 0.99 ratio 04/04/17739 Result Diagram: 04/04/17 0704/04/17 07 X-Rays, CTs and MRIs X-RAY CHEST ONE VIEW, PORTABLE IMPRESSION: 1. Probable mild atelectasis in the lung bases without definite acute cardiopulmonary disease. Dictated by: Jovi Noel M.D. on 04/03/2017 at 16:20 Approved by: Jovi Noel M.D. on 04/03/2017 at 16:21 CT ANGIO CHEST PULMONARY EMBOLISM IMPRESSION: Bilateral pulmonary emboli predominately on the right but also on the left involving the middle and lower thirds of the lung parenchyma/pulmonary arteries. Mild alveolar edema within the right lower lung suggest mild ischemic injury in the area of maximal load of pulmonary emboli. Dictated by: Mitchel Fried M.D. on 04/03/2017 at 17:31 Approved by: Mitchel Fried M.D. on 04/03/2017 at 17:40 . Assessment & Plan Matthew Reynolds is a 61 year old gentleman with a PMH of stage IV lung cancer with mets to the brain s/p chemotherapy and gamma knife procedure 4 days ago and multiple thrombotic events in the past currently not anti-coagulated other than Aspirin and single dose of Warfarin yesterday and SVT or DVT of LLE diagnosed 2 weeks ago. He presents with a 4 day history of chest pain with deep inspiration found to be secondary to BL PE in the ED. Of note overnight the pharmacy was able to determine that the patient received fondaparinux at the [facility] prior to admission, and per their guidelines withheld his heparin drip; upon clinical evaluation the primary team determined that the increased risk of bleeding associated with this drug interaction was of less concern than the patient's pro-thrombotic state and elected to restart the heparin drip prior to the recommended start time by about 5 hours. Bilateral R>L pulmonary embolus, POA, acute. Active -Heparin drip initiated, initially held due to concern over interaction with fondaparinux, restarted due to clinical concern for prothrombotic state -ECHO, preliminary read indicated no RV dysfunction requiring invasive intervention -Tele monitoring -Pulm consult in the AM given underlying history of Lung Cancer Stage IV Lung Cancer, POA, chronic. Active -Alert Dr. Mccarty to patient's admission Chronic Pain secondary to the above, POA, acute on chronic. Active -Oxycodone Q4 PRN -Dilaudid IV PRN for breakthrough pain -Continue home Cyclobenzaprine Tobacco dependence, POA, chronic. Active -Patient counseled about tobacco cessation -Nicotine patch 21 mcg - consult for tobacco cessation Alcohol dependence, POA, chronic. Resolved -Patient reports that this is issue is resolved and that he is currently in AA and not actively drinking -CIWA protocol unlikely to be necessary Disposition: Inpatient, anticipated length of stay >2 midnights due to severity of condition and complexity of treatment plan. Pain Evaluation: Adequate Pain Control GI Prophylaxis: H2 anny VTE Prophylaxis: Other (Heparin drip) Resuscitation Status: DNR/DNI:Do Not Resuscitate/Intubate Attending Statement The patient was seen and examined together with Dr. Zeng on 04/04/2017 and I agree with the history, exam and plan as outlined in the note above. . Jayesh Zeng DO Apr 04, 2017 11:50 Liban Lopez MD Apr 04, 2017 16:57
[2017-04-04] MEDS ORDERED: Heparin 5,000 Unit/mL Inj IVPUSH PRN (15:00)
--- NOTE | 2017-04-04 18:40 | DRSVH ---
[facility] [address] [place] [address] Echocardiogram Report Name: ANGIE KAISER LStudy Date : 04/04/2017 Height: 71 in Hospital Exam Location: [facility] Weight: 181 lb Gender: Male BSA: 2.0 m2 : 1955 Age: 61 yrs BP: 145/77 mmHg Reason For Study: Pulmonary- Embolism Ordering Physician: Performed By: [facility]la [facility]wardS[facility] Interpretation Summary 1. Normal left ventricular size, wall thickness and systolic function with an estimated EF of 60-65% 2. Upper limits of normal right ventricular size with normal systolic function. Trace tricuspid regurgitation with an estimated RVSP of 22 mm Hg. 3. No evidence for significant valvular pathology Procedure: A two-dimensional transthoracic echocardiogram with color flow and Doppler was performed. The study quality was technically adequate. There is no prior echocardiogram noted for this patient. The patient was in normal sinus rhythm during the exam. Left Ventricle: The left ventricle is normal in size. There is normal left ventricular wall thickness. Mildly elevated outflow tract velocities. The ejection fraction is estimated to be 60-65%. No obvious wall motion abnormalities. The E/A ratio is reversed, suggesting impaired early relaxation of the left ventricle or a reduced preload state. Right Ventricle: The right ventricle is normal size. The right ventricular systolic function is normal. Atria: The left atrial size is normal. Right atrial size is normal. No color doppler evidence for an ASD. Mitral Valve: The mitral valve is normal in structure and function. There is no mitral regurgitation noted. Aortic Valve: The aortic valve opens well. Appears trileaflet. No aortic regurgitation is present. Tricuspid Valve: The tricuspid valve leaflets are thin and pliable. There is trace tricuspid regurgitation. The right ventricular systolic pressure is estimated at 22 mmHg assuming a right atrial pressure of 3 mm Hg. Pulmonic Valve: The pulmonic valve is not well visualized. There is no pulmonic valvular regurgitation. Great Vessels: The aortic root is normal size. The dimensions of the ascending aorta are normal. The IVC is of normal diameter and collapses greater than 50% with a sniff. This suggests a low right atrial pressure of 3 mm Hg. Pericardium/ Pleura There is no pericardial effusion. There is no pleural effusion. MMode/2D Measurements & Calculations LVIDd: 4.7 cm LA dimension: 3.6 cm RA long axis Ao root diam LVIDs: 3.3 cm FS: 31.0 % LA A2 area: 22.1 cm RA area Aortic Jxn: 3.0 cm IVSd: 0.91 cm LA A4 area: 18.7 cm Ao Arch Diam (Prox LVPWd: 0.60 cm LA length (vol) : 15.4 cm Trans): 3.0 cm RA vol LA vol: 63.6 ml : 43.5 ml LA vol index RA : 21.5 mm/ RVDd major IVC diam: 1.9 cm : 6.5 cm LV francis. diameter/BSA LV sys. diameter/BSA RVD1 (basal) RVD2 (mid): 4.1 cm (cm/m^2): 2.3 (cm/m^2): 1.6 Doppler Measurements & Calculations LVOT Max Garo MV E max garo MV E/A: 1.3 TR max garo : 135.8 cm/sec : 74.9 cm/sec Med Peak E' Garo : 216.5 cm/sec MV A max garo TR max PG : 59.3 cm/sec E/E' med: 9.0 : 18.8 mmHg MV P1/2t Lat Peak E' Garo PA V2 max : 65.5 msec : 94.4 cm/sec E/E' lat: 6.7 PA mean PG E/e' average: 7.9 Pulm A Revs Dur PA Accel Time : 0.14 sec MV A dur: 0.14 sec MV dec time: 0.22 sec MV P1/2t max garo LV V1 max PG PA V2 mean : 61.1 cm/sec MVA(P1/2t) LV V1 VTI: 28.6 cm : 3.4 cm2 Pulm Nishant William - MV A Dur: -0.04 msec Reading Physician:06:39 PM
[2017-04-04] MEDS: HYDROmorphone 1 mg/mL Inj IVPUSH PRN (20:53)
[2017-04-05] VITALS (10 sets, daily range): BP systolic 108–136; BP diastolic 65–77; PULSE 67–74; RESP 16–20; O2SAT 94–98
[2017-04-05] MEDS: Heparin 25K Unit/500mL 0.45 NS 25,000 UNIT in IV Premix 1 EACH IV SCH ×2 (00:30→14:49)
[2017-04-05] MEDS: oxyCODONE-Acetamin 10-325 mg Tablet PO PRN ×6 (01:06→23:27)
[2017-04-05] MEDS: HYDROmorphone 1 mg/mL Inj IVPUSH PRN ×6 (01:06→23:26)
[2017-04-05 02:50] LABS: BASOPHILS % (AUTO) 0.4 % (0-3); EOSINOPHILS % (AUTO) 4.4 % (0-5); MONOCYTES % (AUTO) 10.2 % (4-12); Mean Corpuscular Hemoglobin 31.9 pg (27.0-35.0); Mean Corpuscular Volume 94.8 fL (81-100); NEUTROPHILS % (AUTO) 66.2 % (40-74); Platelet Count 305 bil/L (150-400)
[2017-04-05 03:10] LABS: Phosphorus 4.2 mg/dL (2.5-4.9)
[2017-04-05 06:18] LABS: INR 0.99 ratio
--- NOTE | 2017-04-05 07:43 | DRSVH ---
PROCEDURE: X-RAY CHEST ONE VIEW, PORTABLE ([id number]) INDICATIONS: FU PE TECHNIQUE: One view of the chest was acquired. COMPARISON: [facility], CR, XR CHEST 1VW (PORTABLE), 04/03/2017, 15:49. FINDINGS: Surgical changes and devices: None. Lungs and pleura: No pleural effusions or pneumothorax. Lungs are abnormal with reduced inspiratory volume and what appears to be mild atelectasis at each lung base. Mediastinum: Mediastinal contours appear normal. Heart size is normal. Bones and chest wall: No suspicious bony lesions. Overlying soft tissues appear unremarkable. IMPRESSION: No pleural effusions found. Mild atelectasis each lung base. Dictated by: Mitchel Fried M.D. on 04/05/2017 at 7:41 Approved by: Mitchel Fried M.D. on 04/05/2017 at 7:41
[2017-04-05] MEDS: Multivit-Miner-Folic Acid-Iron Tablet PO SCH (08:00)
--- NOTE | 2017-04-05 12:53 | PCM.PNMED ---
Subjective Date of Service Apr 05, 2017 Subjective 61-year-old male with previous history of DVTs treated with Lovenox was discontinued 2 weeks prior to undergoing gamma knife radiation due to brain metastases from stage IV lung cancer who presented with new pulmonary embolism. Patient is currently being bridged to warfarin as his insurance will not allow him to have Lovenox outside the hospital. Overnight patient is doing well. He continues to have shifting chest pain has now slightly more in the left periphery exacerbated by inhalation. Patient remains on heparin at this time. Review other systems is negative Echo taken yesterday shows a normal EF of 6065%, with normal ventricular function. There is very trace tricuspid regurgitation Exam Vital Signs Vital Sign - Last Date Time Temp Pulse Resp B/P Pulse Ox O2 Delivery O2 Flow Rate FiO2 04/05/17 10:13 68 04/05/17 08:03 36.8 18 122/76 95 Nasal Cannula 2.00 Intake and Output 04/04/17 04/04/17 04/05/17 Cumulative From/Thru 15:00 23:00 07:00 04/03/17 15:18 - 04/05/17 06:11 Intake Total 642 ml 690 ml 1332 ml Output Total 300 ml 300 ml Balance 342 ml 690 ml 1032 ml Intake Oral 400 ml 340 ml 740 ml IV Total 242 ml 350 ml 592 ml Output Urine Total 300 ml 300 ml # Voids 1 1 Exam General: Patient awake alert in no acute distress HEENT; EOMI, no JVD Cardio: Regular rate and rhythm no murmurs Respiratory: Mild wheezing but otherwise clear to auscultation bilaterally Abdomen: Benign, positive bowel sounds, no tenderness Extremities: No edema, no cyanosis Psych: Appropriate mood and affect Neuro: No focal abnormalities appreciated IVs and Medications Medications Reviewed: Medications were reviewed in detail Lab and Diagnostics Result Diagram: 04/05/176 04/05/17 0216 X-Rays, CTs and MRIs X-RAY CHEST ONE VIEW, PORTABLE IMPRESSION: 1. Probable mild atelectasis in the lung bases without definite acute cardiopulmonary disease. Dictated by: Jovi Noel M.D. on 04/03/2017 at 16:20 Approved by: Jovi Noel M.D. on 04/03/2017 at 16:21 CT ANGIO CHEST PULMONARY EMBOLISM IMPRESSION: Bilateral pulmonary emboli predominately on the right but also on the left involving the middle and lower thirds of the lung parenchyma/pulmonary arteries. Mild alveolar edema within the right lower lung suggest mild ischemic injury in the area of maximal load of pulmonary emboli. Dictated by: Mitchel Fried M.D. on 04/03/2017 at 17:31 Approved by: Mitchel Fried M.D. on 04/03/2017 at 17:40 . Assessment & Plan Matthew Reynolds is a 61 year old gentleman with a PMH of stage IV lung cancer with mets to the brain s/p chemotherapy and gamma knife procedure 4 days ago and multiple thrombotic events in the past currently not anti-coagulated other than Aspirin and single dose of Warfarin yesterday and SVT or DVT of LLE diagnosed 2 weeks ago. He presents with a 4 day history of chest pain with deep inspiration found to be secondary to BL PE in the ED. Of note overnight the pharmacy was able to determine that the patient received fondaparinux at the [facility] prior to admission, and per their guidelines withheld his heparin drip; upon clinical evaluation the primary team determined that the increased risk of bleeding associated with this drug interaction was of less concern than the patient's pro-thrombotic state and elected to restart the heparin drip prior to the recommended start time by about 5 hours. Bilateral R>L pulmonary embolus, POA, acute. Active -Heparin drip initiated, initially held due to concern over interaction with fondaparinux, restarted due to clinical concern for prothrombotic state -ECHO 60% EF with no apparent ventricular dysfunction -Tele monitoring -Patient currently being bridged to warfarin; insurance will allow him to have Lovenox to bridge outside the hospital -Discussed with oncology on Thursday about the availability to bridge this patient outside the hospital with fondaparinux; if unable to do this will need Dr. jacqueline Chong with insurance to get temporary Lovenox approval Stage IV Lung Cancer, POA, chronic. Active -Alert Dr. Mccarty to patient's admission Chronic Pain secondary to the above, POA, acute on chronic. Active -Oxycodone Q4 PRN -Dilaudid IV PRN for breakthrough pain -Continue home Cyclobenzaprine Constipation likely secondary to immobility and opioids; ongoing -Start scheduled MiraLAX today -Continue when necessary bowel management Tobacco dependence, POA, chronic. Active -Patient counseled about tobacco cessation -Nicotine patch 21 mcg - consult for tobacco cessation Alcohol dependence, POA, chronic. Resolved -Patient reports that this is issue is resolved and that he is currently in AA and not actively drinking -CIWA protocol unlikely to be necessary Disposition: Discharge once INR therapeutic Pain Evaluation: Adequate Pain Control GI Prophylaxis: H2 anny VTE Prophylaxis: Other (Heparin drip) Resuscitation Status: DNR/DNI:Do Not Resuscitate/Intubate Attending Statement The patient was seen and examined together with Dr. Frazier on 04/05/2017 and I agree with the history, exam and plan as outlined in the note above. . Anand Frazier DO Apr 05, 2017 12:53 Liban Lopez MD Apr 06, 2017 09:07
--- NOTE | 2017-04-05 13:46 | PCM.PHAPRO ---
Progress Chest pain with deep inspiration Warfarin Management by Pharmacy Indication: PE (03/2017) Home Dose: New start INR Goal: 2-3 Duration: Unknown INR: 0.99 May have started warfarin 5mg as outpatient but had only taken one dose thus far. Assessment/Plan -New start for PE. Currently on heparin gtt. No s/s of bleeding reported -Will initiate warfarin 5 mg this evening. -Pharmacy to monitor INR/CBC/signs of bleeding while inpatient. ThanksClaudio Dwaine Pharm.D. Antoni Snyder Apr 05, 2017 13:46
[2017-04-05] MEDS: Polyethylene Glycol (PEG) 17 Gm Powder PO SCH (14:47)
--- NOTE | 2017-04-05 16:25 | CONS ---
[address] [address] CONSULTATION REPORT PATIENT: ANGIE KAISER : 1955 MR#: [id number] ADMIT: 04/03/2017 JOB ID: [id number] DATE OF SERVICE: 04/05/2017 REQUESTING PHYSICIAN: Jayesh Zeng DO. REASON FOR CONSULTATION: Pulmonary infarction. HISTORY OF PRESENT ILLNESS: The patient is a 61-year-old, male who developed three days of increasing pleuritic type chest pain. Because of his chest pain he presented to the emergency department where he was found to have a pulmonary embolism. Subsequently, upgraded to pulmonary infarction due to his symptoms. The patient's history dates back to 2014. Apparently had a nodule in his lung with right cervical lymph node biopsy showing adenocarcinoma. Was treated with about seven months of carboplatin and pemetrexed. Excellent response. The patient declined subsequent adjuvant therapy and radiation therapy. Did well until recently when he was found to have a 1.5 cm nodule of his head. Prior to that, he had developed superficial migratory thrombophlebitis of the right lower extremity. Took Lovenox. Good response. However, he needed colonoscopy and Lovenox was held. Subsequently, needed a barium enema and Lovenox continued to be held and subsequently needed gamma knife radiation of the cerebral lesion and Lovenox was held. Overall, the Lovenox was held about five weeks. The day after the gamma knife treatment to the cerebral lesion, the patient did developed some discomfort in his left thigh. Had been having some discomfort in his left leg below the knee prior to that. The entire leg became painful and swelled over the next few days. This was associated with the development of chest pain two days after the gamma knife study. Because of the pain he presented himself to the emergency department. There was no particular problem with shortness of breath per se with pain predominant symptom. More recently, he has coughed up some bloody secretions. This has been lessening, describing them as some blood centrally with some pinkish phlegm surrounding the central blood. He has only coughed that up on a few occasions, maybe twice today. Most of the times what he coughs up is clear phlegm. Currently breathing relatively comfortably. Continuing to have significant amount of pleuritic pain. Also pain with movement and with pressure. Describes the pain as radiating up to his clavicle and up to the scapula, towards his shoulder. PAST MEDICAL HISTORY: 1. Diffuse degenerative osteoarthritis, especially of the right hip, which is [id number] causing significant problems. 2. Alcohol abuse, controlled with AA. 3. Nicotine addiction. Has decided to quit. REVIEW OF SYSTEMS: Weight has been decreasing somewhat prior to the recent events. Now putting on a little weight. The weight loss was intentional. Having a bit of a problem with his vision due to the lidocaine injection into the right temporal area for the gamma knife procedure. That, however, is improving. No high blood pressure. No cardiac issues. The remainder of the review of systems is noncontributory. ALLERGIES: None known. MEDICATIONS: On admission include, hydrocodone, tadalafil p.r.n., docusate, cyclobenzaprine. Admission chart note documents coronary artery disease as a problem. GEOGRAPHIC HISTORY: Patient was born in [place] and has remained here since. No recent travel. SMOKING HISTORY: One pack a day for at least 40 years. Still smoking. ALCOHOL: History of alcohol in the past up until recently. OBJECTIVE: Temperature 37.2, pulse high 60s, respiratory rate 16, blood pressure 108/65. O2 sat on 2 L is 95%. I and O shows 0.6 L in, 0.3 L out. General appearance: Well-developed, well-nourished male, lying in bed, asleep when I entered the room. With tactile intervention he woke up with startle reaction. At times, moves somewhat slowly in bed. At other times seems to move reasonably well. Eyes: Somewhat droopy lid of the right eye. Pupils are equal, round, react to light. EOMs are full. The lid droop is due to lidocaine injection still with the subcutaneous tissue swelling noted. Nose: Minimal erythema. No edema. Throat: Mild erythema. Some oropharyngeal white secretions present. No tracking per se. Chest: Fair breath sounds bilaterally. Unable to take a deep breath. There are some crackles at the right lower lateral lung field. There is some chest wall tenderness higher in the mid axillary line on the right laterally. Heart: Regular rhythm. Heart tones normal. No S3. Abdomen soft. Nondistended. Nontender. Liver and spleen not palpable. No masses palpable. Bowel tones active. Extremities: There is clubbing. States this might have been present since childhood. No cyanosis or pretibial edema. LABORATORY DATA: Shows a white count of 11,100 with a normal differential. Hemoglobin relatively stable at 13.6. Platelet count stable at 305,000. Sodium 135, potassium 4.5, chloride 97, CO2 is 23, BUN 19, creatinine 0.6, glucose 110. Calcium 9.2. Phosphorus 4.2. Magnesium 2. Total bilirubin 0.3. AST 21 and normal. ALT 68, slightly elevated, but decreasing. Alkaline phos normal at 53. Albumin 3.4. PTT running 56. INR this morning is 0.99. Chest x-ray at admission showed some possible atelectasis in the lung bases. CT angiogram shows bilateral pulmonary emboli involving the mid and lower thirds of both lungs. There is some consolidation in the right lower lung with attendant air pockets abutting the pleura. ASSESSMENT: Pulmonary infarction. The patient had superficial migratory thrombophlebitis. Now has suffered a pulmonary embolism. Apparently his insurance company will not pay for Lovenox. Instead he is now getting IV heparin with plan to use Coumadin. I guess that is acceptable, if that is the best we can do, but I think with the adenocarcinoma and the pulmonary embolism, Lovenox would be a better choice. Probably needs lifelong anticoagulation at this point. Chest pain. Seems pleuritic. Suspect this is from pulmonary embolism with infarction. These oftentimes take quite a while to resolve radiographically and at times never resolving completely but leaving a chronically scarred area of lung. PLAN: Suggest speaking with Oncology about their thoughts about duration of anticoagulation and with what anticoagulant. Would opine that lifelong anticoagulation with Lovenox is probably in order. If insurance will not pay for Lovenox, and Coumadin is all they will cover, I guess we are stuck with that option, though somewhat suboptimal. Thank you so much for asking us to see this most delightful and engaging individual. Will follow up tomorrow to assist with logistics.
[2017-04-06] VITALS (7 sets, daily range): BP systolic 111–155; BP diastolic 71–81; PULSE 62–73; RESP 20–22; O2SAT 95–97
[2017-04-06 02:06] LABS: INR 0.95 ratio
[2017-04-06] MEDS: HYDROmorphone 1 mg/mL Inj IVPUSH PRN ×4 (03:43→17:46)
[2017-04-06] MEDS: oxyCODONE-Acetamin 10-325 mg Tablet PO PRN ×5 (03:43→22:04)
[2017-04-06] MEDS: Polyethylene Glycol (PEG) 17 Gm Powder PO SCH (08:07)
[2017-04-06] MEDS: Multivit-Miner-Folic Acid-Iron Tablet PO SCH (08:33)
--- NOTE | 2017-04-06 15:26 | CCS NOTE ---
[facility] [address] [address] MEDICAL ONCOLOGY OFFICE NOTE PATIENT: ANGIE KAISER : 1955 MR#: [id number] DATE: 04/03/2017 JOB ID: [id number] DATE: HISTORY OF PRESENT ILLNESS: The patient is a 61-year-old gentleman who is admitted for a new pulmonary embolism. He is known to our clinic and I had seen him last on March 24, 2017. He has oligometastatic lung adenocarcinoma with a single occipital brain lesion that was being prepared for Gamma Knife therapy. 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 However, a definitive diagnosis has not been made. He had a barium enema contrast study showing significant narrowing of the sigmoid colon with extensive diverticulosis. The scope could not be passed enough into this area to obtain a biopsy, and I had him seen by Gastroenterology and eventually he would require surgical exploration to resect this area of stenosis for both therapeutic and diagnostic purposes. However, he is not much symptomatic. Is passing stool. The evaluation was performed because of sigmoid colon wall thickening on the CT scan which has been seen on multiple prior CT scans as well, but he had refused workup up until recently. He has never had a DVT, but migratory superficial thrombophlebitis and was, for a period of time, on Lovenox, but after about four weeks, his insurance did not cover that anymore. Because of the several procedures with colonoscopy and then the gamma knife therapy that was scheduled for March 31, he was held on any anticoagulation. Unfortunately, there was no coverage to start him as an outpatient with Coumadin and Lovenox. He did have his Gamma Knife therapy on March 31, after the , and was scheduled and came to our clinic for administration of Arixtra. He reports that already the day after the gamma knife, he started feeling discomfort in his right chest. Attributed that to positional issues related to Gamma Knife therapy and he received only one injection of Arixtra at our clinic on April 02. However, the pain had gotten worse in his chest and he went to the ER the following day and was admitted after a CT angio of chest on April 03 showed bilateral pulmonary emboli with some changes in the right lower lobe suggesting pulmonary infarct. He is currently heparinized. When I saw him, he is in decent functional status. Is not wearing any oxygen. Of note, the CT scan of the chest did not show any deterioration in regard to recurrence of his lung cancer in the chest. LABORATORIES: Show a white count 11.1, hemoglobin 13, platelets 305. Chemistry shows normal electrolytes, creatinine, and LFTs improving after transaminitis on presentation. EXAMINATION: Vitals are stable. O2 sat 97% on room air. Afebrile. Blood pressure 136/72, bibasilar crackles. Heart regular. Extremities shows no asymmetry or swelling. ASSESSMENT/PLAN: The patient is a 61-year-old smoker with history of a low-volume, stage IV lung adenocarcinoma that was involving the right hilar area and lymph nodes as well as a right cervical lymph node with excellent response to chemotherapy with essentially no measurable disease. Later, he was found to have a single occipital lesion that grew over time, between 7 mm to 15 mm, and was treated with Gamma Knife on March 31. He still has no meaningful disease burden otherwise and has not received any anticancer therapy for the past 1-1/2 years. Because of a migratory superficial thrombophlebitis (he never had any DVTs), we wanted him to be anticoagulated, but unfortunately due to coverage problems with his insurance for low-molecular weight heparin and the procedures he had lined up, he was then started to come into the clinic to get Arixtra injections, which he received only one dose last week. He is admitted with a PE, which I think the clot had likely formed already right around the Gamma Knife therapy on March 31. He received a single dose of Arixtra at our clinic on April 02, and that was admitted on April 03. At this point, he has, due to insurance reasons and coverage, no good options for outpatient low molecular weight heparin or the newer generation oral agents that are very expensive with large co-pays. I recommend to continue Coumadin with a single dose of 10 mg followed by daily 5 mg dosing while he is being heparinized. He might be switched to Lovenox. I talked to the team to potentially planned for discharge on Thursday. He should then continue low-molecular weight heparin as an outpatient until INR is therapeutic. In regard to his colon issue, he has a stricture there that might be due to scarring from previous severe diverticulitis, but a neoplastic process cannot be entirely excluded. Colon cancer is not high on our differential at this point, because there is chronicity to this problem. He will require a surgical excision which he currently is not interested in.
[2017-04-06] MEDS: Heparin 25K Unit/500mL 0.45 NS 25,000 UNIT in IV Premix 1 EACH IV SCH (16:23)
--- NOTE | 2017-04-06 17:32 | PCM.PNMED ---
Subjective Date of Service Apr 06, 2017 Subjective Mr. Reynolds continues to complain of pain with deep inspiration, though states it is much improved since admission. He further states that he has been experiencing chronic constipation likely secondary to a colonic stricture, which has worsened since admission. Otherwise he states that he is doing well and continuing to improve daily. Comprehensive ROS negative except as listed above. Exam Vital Signs Vital Sign - Last Date Time Temp Pulse Resp B/P Pulse Ox O2 Delivery O2 Flow Rate FiO2 04/06/17 16:30 37.2 73 22 119/71 95 Room Air 04/06/17 07:55 2.00 Intake and Output 04/05/17 04/05/17 04/06/17 Cumulative From/Thru 15:00 23:00 07:00 04/03/17 15:18 - 04/06/17 06:38 Intake Total 1188 ml 790 ml 3310 ml Output Total 300 ml Balance 1188 ml 790 ml 3010 ml Intake Oral 780 ml 300 ml 1820 ml IV Total 408 ml 490 ml 1490 ml Output Urine Total 300 ml # Voids 3 3 7 Exam Gen: A/O x3 pleasant cooperative gentleman in mild acute distress secondary to chest pain with inspiration slightly improved since prior exam Neck: Supple, non tender, no JVD, Full ROM HEENT: PERRL, EOMI, no scleral icterus, no conjunctival pallor, mucous membranes slightly dry, poor dentition CV: RRR, no murmurs rubs or gallops Resp: Slightly shallow breathing with inability to take deep breaths due to pain , no wheezing rales or rhonchi Abd: Soft non tender, no organomegaly, no rebound guarding or tenderness Extr: No cyanosis clubbing or edema Neuro: CN 2-12 grossly intact, no focal neurologic deficit Psych: pleasant and appropriate mood and affect. IVs and Medications IV Fluids IV NS delivered with Heparin drip Medications Reviewed: Medications were reviewed in detail Lab and Diagnostics Item Value Date Time Red Blood Count 4.27 mil/mm3 L 04/05/17215 Mean Corpuscular Volume 94.8 fL 04/05/17215 Mean Corpuscular Hemoglobin 31.9 pg 04/05/17215 Mean Corpuscular Hemoglobin Concent 33.6 % 04/05/17215 Red Cell Distribution Width 13.3 % 04/05/17215 Neutrophils (%) (Auto) 66.2 % 04/05/17215 Lymphocytes (%) (Auto) 18.4 % 04/05/17215 Monocytes (%) (Auto) 10.2 % 04/05/17 021 Eosinophils (%) (Auto) 4.4 % 04/05/17215 Basophils (%) (Auto) 0.4 % 04/05/17215 Estimat Glomerular Filtration Rate 131 mL/min 04/05/17215 Calcium Level 9.2 mg/dL 04/05/17215 Phosphorus Level 4.2 mg/dL 04/05/17215 Magnesium Level 2.0 mg/dL 04/05/17215 Total Bilirubin 0.3 mg/dL 04/05/17215 Aspartate Amino Transf (AST/SGOT) 21 U/L 04/05/17 021 Alanine Aminotransferase (ALT/SGPT) 68 U/L H 04/05/17215 Alkaline Phosphatase 53 U/L 04/05/17215 Total Protein 6.2 g/dL L 04/05/17215 Albumin 3.4 g/dL 04/05/17 021 Prothrombin Time 10.2 sec 04/06/17 0140 Prothromb Time International Ratio 0.95 ratio 04/06/17 014 Activated Partial Thromboplast Time 80.0 sec H 04/06/17 014 Result Diagram: 04/05/1721504/05/17215 X-Rays, CTs and MRIs X-RAY CHEST ONE VIEW, PORTABLE IMPRESSION: 1. Probable mild atelectasis in the lung bases without definite acute cardiopulmonary disease. Dictated by: Jovi Noel M.D. on 04/03/2017 at 16:20 Approved by: Jovi Noel M.D. on 04/03/2017 at 16:21 CT ANGIO CHEST PULMONARY EMBOLISM IMPRESSION: Bilateral pulmonary emboli predominately on the right but also on the left involving the middle and lower thirds of the lung parenchyma/pulmonary arteries. Mild alveolar edema within the right lower lung suggest mild ischemic injury in the area of maximal load of pulmonary emboli. Dictated by: Mitchel Fried M.D. on 04/03/2017 at 17:31 Approved by: Mitchel Fried M.D. on 04/03/2017 at 17:40 . Assessment & Plan Matthew Reynolds is a 61 year old gentleman with a PMH of stage IV lung cancer with mets to the brain s/p chemotherapy and gamma knife procedure 4 days ago and multiple thrombotic events in the past currently not anti-coagulated other than Aspirin and single dose of Warfarin yesterday and SVT or DVT of LLE diagnosed 2 weeks ago. He presents with a 4 day history of chest pain with deep inspiration found to be secondary to BL PE in the ED. Bilateral R>L pulmonary embolus, POA, acute. Active -Heparin drip initiated, initially held due to concern over interaction with fondaparinux, restarted due to clinical concern for prothrombotic state -ECHO 60% EF with no apparent ventricular dysfunction -Tele monitoring -Patient currently being bridged to warfarin; insurance will not allow him to have Lovenox to bridge outside the hospital -The patient's situation was discussed with Dr. Mccarty, who stated that secondary to poor insurance coverage Warfarin is the only option for fdc anticoagulation -The patient will be titrated up to a therapeutic INR beginning with Warfarin 10 mg and then dosing per pharmacy Stage IV Lung Cancer, POA, chronic. Active -Dr. Mccarty has evaluated the patient, and stated that the patient has been essentially disease free for 1.5 years Chronic Pain secondary to the above, POA, acute on chronic. Active -Oxycodone Q4 PRN -Dilaudid IV PRN for breakthrough pain -Continue home Cyclobenzaprine Constipation, POA, acute on chronic. Ongoing -Likely secondary to underlying colonic stricture exacerbated by opiate analgesia -Start scheduled MiraLAX today -Continue when necessary bowel management -Patient has elected not to pursue surgical management of his stricture in the past Tobacco dependence, POA, chronic. Active -Patient counseled about tobacco cessation -Nicotine patch 21 mcg - consult for tobacco cessation Alcohol dependence, POA, chronic. Resolved -Patient reports that this is issue is resolved and that he is currently in AA and not actively drinking -CIWA protocol unlikely to be necessary Disposition: Discharge once INR therapeutic, likely 2-3 days Pain Evaluation: Adequate Pain Control GI Prophylaxis: H2 anny VTE Prophylaxis: Other (Heparin drip) Resuscitation Status: DNR/DNI:Do Not Resuscitate/Intubate Attending Statement The patient was seen and examined together with Dr. Zeng on 04/06/17 and I have added additional information to the note above. Jayesh Zeng DO Apr 06, 2017 17:32 Rupinder Vargas DO Apr 08, 2017 12:01
[2017-04-06] MEDS ORDERED: HYDROmorphone 1 mg/mL Inj IVPUSH PRN (20:30)
[2017-04-07] VITALS (10 sets, daily range): BP systolic 120–145; BP diastolic 70–82; PULSE 57–75; RESP 16–23; O2SAT 95–97
[2017-04-07 02:34] LABS: BASOPHILS % (AUTO) 0.6 % (0-3); EOSINOPHILS % (AUTO) 6.2 % (0-5); MONOCYTES % (AUTO) 10.7 % (4-12); Mean Corpuscular Hemoglobin 32.2 pg (27.0-35.0); Mean Corpuscular Volume 97.3 fL (81-100); NEUTROPHILS % (AUTO) 56.2 % (40-74); Platelet Count 339 bil/L (150-400)
[2017-04-07 02:44] LABS: INR 1.01 ratio
[2017-04-07 03:19] LABS: Magnesium 2.1 mg/dL (1.6-2.6)
[2017-04-07] MEDS: Heparin 25K Unit/500mL 0.45 NS 25,000 UNIT in IV Premix 1 EACH IV SCH ×2 (05:22→16:52)
[2017-04-07] MEDS: oxyCODONE-Acetamin 10-325 mg Tablet PO PRN ×5 (05:23→23:28)
[2017-04-07] MEDS: Polyethylene Glycol (PEG) 17 Gm Powder PO SCH (09:31)
[2017-04-07] MEDS: Multivit-Miner-Folic Acid-Iron Tablet PO SCH (09:32)
--- NOTE | 2017-04-07 14:37 | PCM.PNMED ---
Subjective Date of Service Apr 07, 2017 Subjective Mr Reynolds reports that his pain with deep inhalation is significantly improved today. He states that he is now able to take a deep breath with only minimal residual pain, furthermore he is able to lie down on his right side which he was not able to do previously. He further states that the ache in his left leg is much improved. He denies abdominal pain, nausea, or dysuria. He has reported continued constipation, however after osteopathic manipulative therapy he was able to have a BM. Comprehensive ROS negative except as outlined above. . Exam Vital Signs Vital Sign - Last Date Time Temp Pulse Resp B/P Pulse Ox O2 Delivery O2 Flow Rate FiO2 04/07/17 12:34 36.9 68 20 129/78 96 Room Air 04/06/17 07:55 2.00 Intake and Output 04/06/17 04/06/17 04/07/17 Cumulative From/Thru 15:00 23:00 07:00 04/03/17 15:18 - 04/07/17 06:39 Intake Total 542 ml 597 ml 4449 ml Output Total 300 ml Balance 542 ml 597 ml 4149 ml Intake Oral 400 ml 200 ml 2420 ml IV Total 142 ml 397 ml 2029 ml Output Urine Total 300 ml # Voids 3 3 13 # Bowel Movements 0 0 Exam Gen: A/O x3 pleasant cooperative gentleman in NAD Neck: Supple, non tender, no JVD, Full ROM HEENT: PERRL, EOMI, no scleral icterus, no conjunctival pallor, mucous membranes slightly dry, poor dentition CV: RRR, no murmurs rubs or gallops Resp: Lungs CTA BL, no wheezing rales or rhonchi Abd: Soft non tender, no organomegaly, no rebound guarding or tenderness Extr: No cyanosis clubbing or edema, swelling in left leg much improved Neuro: CN 2-12 grossly intact, no focal neurologic deficit Psych: pleasant and appropriate mood and affect. IVs and Medications Medications Reviewed: Medications were reviewed in detail Lab and Diagnostics Result Diagram: 04/07/1721404/07/17214 X-Rays, CTs and MRIs X-RAY CHEST ONE VIEW, PORTABLE IMPRESSION: 1. Probable mild atelectasis in the lung bases without definite acute cardiopulmonary disease. Dictated by: Jovi Noel M.D. on 04/03/2017 at 16:20 Approved by: Jovi Noel M.D. on 04/03/2017 at 16:21 CT ANGIO CHEST PULMONARY EMBOLISM IMPRESSION: Bilateral pulmonary emboli predominately on the right but also on the left involving the middle and lower thirds of the lung parenchyma/pulmonary arteries. Mild alveolar edema within the right lower lung suggest mild ischemic injury in the area of maximal load of pulmonary emboli. Dictated by: Mitchel Fried M.D. on 04/03/2017 at 17:31 Approved by: Mitchel Fried M.D. on 04/03/2017 at 17:40 . Assessment & Plan Matthew Reynolds is a 61 year old gentleman with a PMH of stage IV lung cancer with mets to the brain s/p chemotherapy and gamma knife procedure 4 days ago and multiple thrombotic events in the past currently not anti-coagulated other than Aspirin and single dose of Warfarin yesterday and SVT or DVT of LLE diagnosed 2 weeks ago. He presents with a 4 day history of chest pain with deep inspiration found to be secondary to BL PE in the ED. Bilateral R>L pulmonary embolus, POA, acute. Active -Heparin drip initiated, initially held due to concern over interaction with fondaparinux, restarted due to clinical concern for prothrombotic state -ECHO 60% EF with no apparent ventricular dysfunction -Tele monitoring -Patient currently being bridged to warfarin; insurance will now allow him to have Lovenox to bridge outside the hospital -The patient's situation was discussed with Dr. Mccarty, who stated that secondary to poor insurance coverage Warfarin is the only option for halfway anticoagulation -The patient will be titrated up to a therapeutic INR beginning with Warfarin 10 mg and then dosing per pharmacy Stage IV Lung Cancer, POA, chronic. Active -Dr. Mccarty has evaluated the patient, and stated that the patient has been essentially disease free for 1.5 years Chronic Pain secondary to the above, POA, acute on chronic. Active -Oxycodone Q4 PRN -Dilaudid IV PRN for breakthrough pain -Continue home Cyclobenzaprine Constipation, POA, acute on chronic. Ongoing -Likely secondary to underlying colonic stricture exacerbated by opiate analgesia -Start scheduled MiraLAX today -Continue when necessary bowel management -Patient has elected not to pursue surgical management of his stricture in the past -Patient was provided with osteopathic manipulative therapy today resulting in immediate BM Tobacco dependence, POA, chronic. Active -Patient counseled about tobacco cessation -Nicotine patch 21 mcg - consult for tobacco cessation Alcohol dependence, POA, chronic. Resolved -Patient reports that this is issue is resolved and that he is currently in AA and not actively drinking -CIWA protocol unlikely to be necessary Disposition: Patient is titrating upwards with INR towards therapeutic range, insurance has approved a 1 week course of Lovenox in order to bridge to Warfarin , anticipate DC tomorrow to begin bridge once this course of care has been approved by Dr. Mccarty Pain Evaluation: Adequate Pain Control GI Prophylaxis: H2 anny VTE Prophylaxis: Other (Heparin drip) Resuscitation Status: DNR/DNI:Do Not Resuscitate/Intubate Attending Statement The patient was seen and examined together with Dr. Zeng on 04/07/17 and I have added additional information to the note above. Jayesh Zeng DO Apr 07, 2017 14:37 Rupinder Vargas DO Apr 08, 2017 13:50
--- NOTE | 2017-04-07 14:52 | PCM.PROC ---
Procedure Note Date of Service: Apr 07, 2017 Procedure Details: Procedure: Osteopathic Manipulative Treatment Subjective: Patient is a 61-year-old male who complains of constipation. Patient states the constipation has been for the last 4 days and prior to this has had only small meniscal bowel movements. Patient states that he does have chronic constipation and has been treated for this in the past. The patient has had multiple stool softeners and laxatives as still complaining of constipation. Risks and benefits of OMT were explained to the patient and verbal consent obtained. Osteopathic Structural Exam: Thoracics: T6 through T12 hypertonicity greater on the right compared to the left. T6-T9 NRlSr Lumbars: L1 to L2 hypertonicity on the right Abdomen: Celiac ganglia restriction, superior mesenteric artery restriction Ribs: Restricted motion greater on the right compared to the left Pelvis: Right anterior innominate Sacrum: Right SI joint compression Patient responded well to treatment and immediately had a bowel movement after treatment. Osteopathic treatment modalities used: Myofascial release, Muscle Energy, rib raising, and soft tissue technique Rupinder Vargas DO Apr 07, 2017 14:52
[2017-04-08 03:33] LABS: BASOPHILS % (AUTO) 0.4 % (0-3); EOSINOPHILS % (AUTO) 5.9 % (0-5); MONOCYTES % (AUTO) 10.7 % (4-12); Mean Corpuscular Hemoglobin 32.3 pg (27.0-35.0); NEUTROPHILS % (AUTO) 51.3 % (40-74); Platelet Count 346 bil/L (150-400)
[2017-04-08 03:50] VITALS: BP 124/74; PULSE 54; RESP 18; O2SAT 97
[2017-04-08 03:54] LABS: INR 1.18 ratio
[2017-04-08 04:02] LABS: Phosphorus 4.4 mg/dL (2.5-4.9)
[2017-04-08] MEDS: oxyCODONE-Acetamin 10-325 mg Tablet PO PRN ×2 (04:37→08:45)
[2017-04-08] MEDS: Polyethylene Glycol (PEG) 17 Gm Powder PO SCH (08:44)
[2017-04-08] MEDS: Multivit-Miner-Folic Acid-Iron Tablet PO SCH (08:44)
[2017-04-08 08:46] VITALS: BP 153/84; PULSE 69; RESP 18; O2SAT 95
[2017-04-08] MEDS ORDERED: Lactated Ringer's 1,000 ML IV ONE (08:56)
[2017-04-08] MEDS ORDERED: Lidocaine PF 2% 10 mL Inj MUC_MEMBRM ONE (09:00)
[2017-04-08] MEDS ORDERED: Lidocaine Topical 2% 30 mL Jelly TOPICAL ONE (09:00)
[2017-04-08] MEDS ORDERED: Lidocaine PF 2% 10 mL Inj MUC_MEMBRM PRN (09:00)
--- NOTE | 2017-04-08 09:16 | PCM.PHAPRO ---
Progress Chest pain with deep inspiration WARFARIN DOSING Indication: PE Additional: Lung CA, SVT Dosing Hx: Date 4-Turner 5-Turner 6-Turner 7-Turner 8-Turner 9-Turner 10-Turner 11-Turner 12-Turner 13-Turner 14-Turner INR 0.99 .95 1.01 1.26 Warf Dose 5 MG 10 mg 10MG 10MG a/p: Continues on ADIVH, likely therapeutic INR in 2 days Barrington Fountain S Pharm D Apr 08, 2017 09:16
--- NOTE | 2017-04-08 10:10 | PCM.DIMED ---
Jayesh Zeng DO 04/08/17 1010: Discharge Instructions Date of Service Apr 08, 2017 Dates of Hospitalization Apr 03, 2017 at 18:02 Discharge Diagnosis Discharge Diagnosis Bilateral R>L pulmonary embolus, POA, acute. Active: When you arrived you had a blood clot in both of your lungs. We have had you on blood thinning medications to prevent the clot from growing or new clots from forming while your body did the working of breaking up the clot you had. Based on your improvement in pain and breathing it appears that we have made good progress. We will discharge you on both Lovenox and Warfarin, with the idea that the Lovenox will serve as a bridge to keep your blood thin while the Warfarin builds up in your system. Stage IV Lung Cancer, POA, chronic. Active: We have no evidence that your lung cancer has returned. Your history of smoking and lung cancer together with this blood clot means that your lungs will never fully be normal, but you should recover enough function to go about your daily activities without too much difficulty. At this point quitting smoking is a life or decision for you, if you continue to smoke you will keep getting lung problems until your lungs eventually fail. It sounds like you are motivated to quit now, please follow up with your primary care doctor about accessing resources to help you quit. Chronic Pain secondary to the above, POA, acute on chronic. Active Constipation, POA, acute on chronic. Ongoing Tobacco dependence, POA, chronic. Active: As above I cannot overstate how important it is for you to quit smoking. Medication Instructions Additional med instructions We will start you on Lovenox, which will you will inject into your belly once per day for a week. We are going to resume your Warfarin and get you to follow up with the INR clinic, they will help you adjust your dosing to make you hit the "goldilocks zone" where your blood is neither too thick or too thin. Diet Discharge Diet: Heart Healthy Activity Discharge Activity: No restrictions (Let your body be the guide, it is important to get as much exercise as you can tolerate; but if you are having pain or getting too out of breath rest and recover.) Call your provider Call your provider for: Fever or Chills, Shortness of breath, Bleeding, Chest pain, Vomitting, Excessive diarrhea, Weakness (unilateral), Other (Swelling or pain in one leg, coughing up blood, worsening shortness of breath) Patient Instructions Patient Instructions As above, please stop smoking. Follow-up plan Follow up with the residency clinic within 2 weeks for further evaluation. Follow up with the protime/INR clinic by the end of the week to adjust your Warfain. Follow-up Provider: [facility] Follow-up with PCP in: 2 weeks Rupinder Vargas DO 04/08/17 1607: Discharge Instructions Attending's Statement The patient was seen and examined together with Dr. Zeng on 04/08/17 and I agree with the history, exam and plan as outlined in the note above. Jayesh Zeng DO Apr 08, 2017 10:10 Rupinder Vargas DO Apr 08, 2017 16:07
[2017-04-08] MEDS ORDERED: ENOX100D4 SUBQ (10:12)
[2017-04-08] MEDS ORDERED: WARF5TAB7 PO (10:12)
[2017-04-08 10:41] VITALS: PULSE 53
--- NOTE | 2017-04-08 15:14 | PCM.DC.MED ---
Discharge Summary Date of Service Apr 08, 2017 Dates of Hospitalization Date of Hospital Admission Apr 03, 2017 at 18:02 Date of Discharge: Apr 08, 2017 Providers: Admitting Physician: Liban Lopez MD Primary Care Physician: Nitza Diamond DO Attending Physician: Liban Lopez MD Diagnosis at Time of Discharge Diagnosis at Time of Discharge Bilateral R>L pulmonary embolus, POA, acute. Active: Stage IV Lung Cancer, POA, chronic. Active: Chronic Pain secondary to the above, POA, acute on chronic. Active Constipation, POA, acute on chronic. Ongoing Tobacco dependence, POA, chronic. Active: Consultations Pulmonology with Dr. Davis Procedures XRay, CTs & MRIs X-RAY CHEST ONE VIEW, PORTABLE IMPRESSION: 1. Probable mild atelectasis in the lung bases without definite acute cardiopulmonary disease. Dictated by: Jovi Noel M.D. on 04/03/2017 at 16:20 Approved by: Jovi Noel M.D. on 04/03/2017 at 16:21 CT ANGIO CHEST PULMONARY EMBOLISM IMPRESSION: Bilateral pulmonary emboli predominately on the right but also on the left involving the middle and lower thirds of the lung parenchyma/pulmonary arteries. Mild alveolar edema within the right lower lung suggest mild ischemic injury in the area of maximal load of pulmonary emboli. Dictated by: Mitchel Fried M.D. on 04/03/2017 at 17:31 Approved by: Mitchel Fried M.D. on 04/03/2017 at 17:40 . Brief History Matthew Ryenolds is a 61 year old man with a PMH of stage IV lung cancer with mets to the brain s/p chemotherapy and Gamma knife procedure 4 days ago. The patient was previously on a 4 week course of Lovenox therapy which ended about 3 weeks ago for a LLE DVT, he then presented to the ED on 03/18 with a LLE SVT, because he was about to undergo a colonoscopy and the aforementioned Gamma knife procedure it was determined that he should without further anti-coagulation beyond aspiring until after his Gamma knife procedure; he just restarted Warfarin yesterday. 4 days following his Gamma knife procedure he began to experience right sided chest pain that was aggravated by deep inspiration, he initially attributed this to the awkward position he was in for the procedure. However, over the ensuing days this pain worsened, and at the insistence of his he presented to the ED for further evaluation. He denies chest pain, hemoptysis, palpitations, abdominal pain. He states that his left leg has remained swollen and tender without much improvement since his ER visit on . He continues to smoke 1/2-1 pack daily, and >5 alcoholic beverages daily. In the ED that patient was normotensive with a HR in the 90s, ECG not without S1Q3T3 or ischemic changes initial trop negative. CT angio revealed BL PE R>L with mild alveolar edema within the right lung suggestive of mild ischemic injury in the area of maximal load of pulmonary emboli. He was started on Heparin drip in the ED and given Dilaudid IV for pain control to good but transient effect. Hospital Course Matthew Reynolds is a 61 year old gentleman with a PMH of stage IV lung cancer with mets to the brain s/p chemotherapy and gamma knife procedure 4 days ago and multiple thrombotic events in the past. At the time of admission the patient was only anti-coagulated with Aspirin and single dose of Warfarin yesterday for his superficial venous thrombosis/DVT of LLE diagnosed 2 weeks prior to admission. He presented with a 4 day history of chest pain with deep inspiration found to be secondary to BL PE in the ED. The patient was maintained on a Heparin drip and dosed with Warfarin in an attempt to establish therapeutic INR. On the day of discharge he was initiated on a 1 week course of Lovenox with concurrent Warfarin dosing with close follow up with INR clinic to establish therapeutic INR. See below for full hospital course: Bilateral R>L pulmonary embolus, POA, acute. Active -Heparin drip initiated, initially held due to concern over interaction with fondaparinux, restarted due to clinical concern for prothrombotic state -ECHO 60% EF with no apparent ventricular dysfunction -Tele monitoring -Patient bridged to warfarin; insurance approved a 1 week course of Lovenox -The patient's situation was discussed with Dr. Mccarty, who stated that secondary to poor insurance coverage Warfarin is the only option for correction anticoagulation -The patient was titrated towards therapeutic INR beginning with Warfarin 10 mg and then dosed per pharmacy -Discharged on 1 week course of Lovenox bridging to Warfarin with close INR clinic follow up Stage IV Lung Cancer, POA, chronic. Active -Dr. Mccarty has evaluated the patient, and stated that the patient has been essentially disease free for 1.5 years Chronic Pain secondary to the above, POA, acute on chronic. Active -Oxycodone Q4 PRN -Dilaudid IV PRN for breakthrough pain -Continued home Cyclobenzaprine Constipation, POA, acute on chronic. 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 Active -Patient counseled about tobacco cessation -Nicotine patch 21 mcg - consult for tobacco cessation Alcohol dependence, POA, chronic. Resolved -Patient reports that this is issue is resolved and that he is currently in AA and not actively drinking -CIWA protocol unlikely to be necessary . Exam Vital Signs (Last) Date Time Temp Pulse Resp B/P Pulse Ox O2 Delivery O2 Flow Rate FiO2 04/08/17 10:41 53 04/08/17 08:46 36.6 18 153/84 95 Room Air 04/06/17 07:55 2.00 Exam Gen: A/O x3 pleasant cooperative gentleman in NAD Neck: Supple, non tender, no JVD, Full ROM HEENT: PERRL, EOMI, no scleral icterus, no conjunctival pallor, mucous membranes slightly dry, poor dentition CV: RRR, no murmurs rubs or gallops Resp: Lungs CTA BL, no wheezing rales or rhonchi Abd: Soft non tender, no organomegaly, no rebound guarding or tenderness Extr: No cyanosis clubbing or edema, swelling in left leg much improved Neuro: CN 2-12 grossly intact, no focal neurologic deficit Psych: pleasant and appropriate mood and affect. Test 04/03/17 15:55 04/05/17 02:16 04/07/17 02:15 04/08/17 03:11 Troponin T < 0.010ug/L (0.0-0.011) Hold Blue Top Tube Received (Received) Total Bilirubin 0.2mg/dL (0.0-1.2) Aspartate Amino Transf (AST/SGOT) 17U/L (0-50) Alanine Aminotransferase (ALT/SGPT) 35U/L (0-44) Alkaline Phosphatase 46U/L (25-160) Total Protein 6.7g/dL (6.4-8.4) Albumin 3.2g/dL (3.4-5.0) White Blood Count 8.2th/mm3 (3.8-10.1) Red Blood Count 4.34mil/mm3 (4.40-5.80) Hemoglobin 14.0g/dL (13.8-17.2) Hematocrit 42.1% (41.0-50.0) Mean Corpuscular Volume 97.0fL (81-100) Mean Corpuscular Hemoglobin 32.3pg (27.0-35.0) Mean Corpuscular Hemoglobin Concent 33.3% (32.0-37.0) Red Cell Distribution Width 13.1% (12.3-15.4) Platelet Count 346bil/L (150-400) Neutrophils (%) (Auto) 51.3% (40-74) Lymphocytes (%) (Auto) 30.8% (14-46) Monocytes (%) (Auto) 10.7% (4-12) Eosinophils (%) (Auto) 5.9% (0-5) Basophils (%) (Auto) 0.4% (0-3) Prothrombin Time 12.7sec (8.1-12.5) Prothromb Time International Ratio 1.18ratio Activated Partial Thromboplast Time 85.6sec (22.8-33.0) Sodium Level 138mEq/L (134-144) Potassium Level 4.4mEq/L (3.5-5.2) Chloride Level 102mEq/L (97-108) Carbon Dioxide Level 22mmol/L (18-29) Blood Urea Nitrogen 17mg/dL (6-24) Creatinine 0.74mg/dL (0.76-1.27) Estimat Glomerular Filtration Rate 115mL/min (>59) Glucose Level 105mg/dL (60-99) Calcium Level 9.2mg/dL (8.5-10.1) Phosphorus Level 4.4mg/dL (2.5-4.9) Magnesium Level 2.0mg/dL (1.6-2.6) Discharge Medications Discharge Medications Enoxaparin Sodium (Enoxaparin Sodium) 100 Mg/1 Ml Syringe 100 MG SUBQ DAILY Prescribed by: EBONI ZENG, DO Multivitamin (Multi Vitamin Daily) 1 Each Tablet 1 EACH PO DAILY (Reported) Warfarin Sodium (Warfarin Sodium) 5 Mg Tablet 5 MG PO DAILY Prescribed by: EBONI ZENG DO As needed Cyclobenzaprine (Cyclobenzaprine) 10 Mg Tablet 10 MG PO TID PRN PRN Spasm ( Reported) Docusate Sodium (Colace) 100 Mg Capsule 100 MG PO QAM PRN PRN For Constipation ( Reported) Hydrocodone-Acetaminophen 5-325 mg (Hydrocodone-Acetaminophen 5-325 mg) 1 Each Tablet 1 TABLET PO Q6H PRN PRN For Pain (Reported) oxyCODONE (oxyCODONE) 5 Mg Tablet 5-10 MG PO Q4H PRN PRN For Pain (Reported) Additional med instructions We will start you on Lovenox, which will you will inject into your belly once per day for a week. We are going to resume your Warfarin and get you to follow up with the INR clinic, they will help you adjust your dosing to make you hit the "goldilocks zone" where your blood is neither too thick or too thin. Followup Plan Disposition: Home with close INR clinic follow up. Follow-up plan Follow up with the residency clinic within 2 weeks for further evaluation. Follow up with the protime/INR clinic by the end of the week to adjust your Warfain. Discharge Diet: Heart Healthy Discharge Activity: No restrictions (Let your body be the guide, it is important to get as much exercise as you can tolerate; but if you are having pain or getting too out of breath rest and recover.) Patient Instructions As above, please stop smoking. Follow-up Provider: [facility] Follow-up with PCP in: 2 weeks Time spent Time spent planning and coordinating discharge > 35 minutes. Attending Statement The patient was seen and examined together with Dr. Zeng on 04/08/17 and I have added additional information to the note above. copies to: Nitza Diamond David E DO Apr 08, 2017 15:14 Rupinder Vargas DO Apr 08, 2017 16:21
[2017-04-09] MEDS ORDERED: fentaNYL-PF 50 mCg/mL 2 mL Inj IVPUSH PRN (07:00)
== END 2017-04-08 12:45 | disposition home or self-care (01) | DRG 176 ==
LOC: SED 15:17 → PCC 18:02
PROVIDERS: ADMIT Internal Medicine; ATTEND Internal Medicine
DX: I26.99 Other pulmonary embolism without acute cor pulmonale (principal); K56.69 Other intestinal obstruction; Z79.01 Long term (current) use of anticoagulants; F17.210 Nicotine dependence, cigarettes, uncomplicated; Z92.21 Personal history of antineoplastic chemotherapy; G89.3 Neoplasm related pain (acute) (chronic); F10.10 Alcohol abuse, uncomplicated; Z66 Do not resuscitate; K59.00 Constipation, unspecified; T40.2X5A Adverse effect of other opioids, initial encounter; Z85.118 Personal history of other malignant neoplasm of bronchus and lung

== ENCOUNTER 2017-04-22 14:01 | Emergency (ER) | payer OTHER ==
[~2017-04-22] VITALS: Ht 180.3 cm; Wt 86.8 kg
[~2017-04-22 14:01] MED LIST changes: +ENOX100D4 SUBQ; +OXYC5TAB72 PO; -TADA20TA PO; +WARF5TAB7 PO
[2017-04-22 14:05] VITALS: BP 151/75; PULSE 82; RESP 16; O2SAT 100
[2017-04-22 15:35] LABS: INR 1.79 ratio
[2017-04-22] MEDS ORDERED: HYDROcodone-APAP 5-325 mg Tablet PO ONE (15:45)
--- NOTE | 2017-04-22 17:44 | ED.REPORT ---
HPI-Extremity Problem Lower Date of Service Apr 22, 2017 ED Provider: Moe Johnson MD Pt is a 61 year old male with a hx of stage IV lung cancer with mets to the brain and recent PE, on Coumadin presenting to the ED complaining of left leg pain and swelling onset a week and a half ago. He denies any chest pain, SOB or other symptoms at this time. Pt was recently admitted to the hospital on April 03- for a PE and was diagnosed with a left leg DVT by ultrasound today. The day before yesterday his INR was 2.2 so they put him on 5mg Coumadin daily. He reports a recent [address] Nursing Notes Stated Complaint: LT LEG DVT Chief Complaint: Extremity Trauma Nursing Notes Reviewed: Yes Allergies: Coded Allergies: No Known Allergies (Verified Allergy, Unknown, 04/22/17) Scheduled Enoxaparin Sodium (Enoxaparin Sodium) 100 Mg/1 Ml Syringe 100 MG SUBQ DAILY Multivitamin (Multi Vitamin Daily) 1 Each Tablet 1 EACH PO DAILY Warfarin Sodium (Warfarin Sodium) 5 Mg Tablet 5 MG PO DAILY Warfarin Sodium (Warfarin Sodium) 5 Mg Tablet 7.5 MG PO DAILY Scheduled PRN Cyclobenzaprine (Cyclobenzaprine) 10 Mg Tablet 10 MG PO TID PRN PRN Spasm Docusate Sodium (Colace) 100 Mg Capsule 100 MG PO QAM PRN PRN For Constipation Hydrocodone-Acetaminophen 5-325 mg (Hydrocodone-Acetaminophen 5-325 mg) 1 Each Tablet 1 TABLET PO Q6H PRN PRN For Pain oxyCODONE (oxyCODONE) 5 Mg Tablet 5-10 MG PO Q4H PRN PRN For Pain General Time Seen by MD: 15:18 Chief Complaint Leg injury left Hx Obtained From: Patient Arrived By: Walk-in Onset Occurred: 1 week ago Symptom Duration: Since onset Location: : Leg left Severity: Current: Mild Severity: Maximum: Moderate Recent Healthcare: Recent doctor visit, Recent hospitalization Similar Sx Previous: No Past Medical History Past Medical History Notes: Oncology: Dr. 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 Respiratory: Denies: Shortness of breath, Wheezing Cardiovascular: Denies: Chest pain GI: Denies: Nausea, Vomiting Physical Exam Initial Vital Signs Vital Signs (First) Date Time Temp Pulse Resp B/P Pulse Ox O2 Delivery O2 Flow Rate FiO2 04/22/17 14:05 36.7 82 16 151/75 100 Room Air Initial VS: Reviewed General/Constitutional: Well-developed, Well-nourished Head / Eyes: Atraumatic, Normocephalic, PERRL ENT: Mucous membranes moist, Conjunctiva normal, No scleral icterus Respiratory: Breath sounds normal, Clear to auscultation, No respiratory distress Cardiovascular: Regular rate & rhythm, Heart sounds normal, Intact distal pulses Abdomen / GI: Soft, Non-tender, No guarding, No rebound, No distention Upper Extremities: Vascular intact, Neuro intact, No swelling, No tenderness Skin: Warm, Dry, No cyanosis Neurologic: Alert, Oriented, Nonfocal Psychiatric: Mood/affect normal, Behavior normal, Normal thought content Interpretation & Diagnostics Lab Results Interpretation Test 04/22/17 14:45 Prothrombin Time 19.4sec (8.1-12.5) Prothromb Time International Ratio 1.79ratio Re-Eval/Medical Decision Med Decision/Clinical Course 61-year-old male with an active malignancy who at present is subtherapeutic on warfarin which was recently started due to pulmonary embolism. Given the fact that he had a recent pulmonary embolism or DVT found today is likely related to a pre-existing thrombotic condition. After discussion with hematology, we have given him an additional dose of Lovenox tonight and will increase his warfarin from 5 to-7.5 daily. Re-Evaluation/Progress : Time of Eval: 17:45 Patient Status: Condition improved Re-Evaluation/Progress Note: Discussed plan for discharge. Pt understands and agrees. Consultation : Referral / Consult Name: Blair Vargas MD Call Returned at: 15:48 Historical Society Director: Agrees with plan Note: Oncology. He will set him up with a clinic to check his INR. Counseled Regarding: Diagnosis, Lab results, Need for follow-up, When/why to return to ED Discharge & Departure Impression: Primary Impression: Left leg DVT Additional Impression: Subtherapeutic international normalized ratio (INR) Disposition: Home Discharge Condition All VS Reviewed: Yes Condition: Improved Patient Instructions: Deep Venous Thrombosis (ED) Additional Instructions: You will need to stay on Warfarin for the blood clot in your leg. Increase dose to 7.5 mg (one and a half tablets) daily. Elevate your leg when at rest, keeping your knee bent. Return to the ER if you develop any new or worsening symptoms, especially any shortness of breath or chest pain. Follow up with coumadin clinic in 2 days. Follow up with oncology later this week. Referrals: Nitza Diamond DO (PCP) Blair Vargas MD Attestation Portions of this note were transcribed by Charlene Rivera. I, Dr. Johnson personally performed the history, physical exam and medical decision-making; I reviewed and confirmed the accuracy of the information in the transcribed note. Signed by : Shalini Nieves, 04/22/2017 at 1758. copies to: Blair Vargas MD; Nitza Diamond Donald L MD Apr 22, 2017 17:44 CHARLENE RIVERA Apr 22, 2017 17:50
[2017-04-22] MEDS ORDERED: WARF5TAB7 PO (17:55)
[2017-04-22 18:15] VITALS: BP 145/70; PULSE 82; RESP 16; O2SAT 100
[2017-05-07] MEDS ORDERED: WARF5TAB7 PO (10:50)
== END 2017-04-22 18:18 | disposition home or self-care (01) ==
LOC: SED 14:01
DX: I82.402 Acute embolism and thrombosis of unspecified deep veins of left lower extremity (principal); R79.1 Abnormal coagulation profile; C34.91 Malignant neoplasm of unspecified part of right bronchus or lung; C79.31 Secondary malignant neoplasm of brain; I25.10 Atherosclerotic heart disease of native coronary artery without angina pectoris; F10.20 Alcohol dependence, uncomplicated; F17.200 Nicotine dependence, unspecified, uncomplicated; Z86.711 Personal history of pulmonary embolism; Z79.01 Long term (current) use of anticoagulants
CPT/HCPCS: 36415; 85610; 96372; 99284; G0463; J1650

== ENCOUNTER 2017-07-01 03:22 | Inpatient (IN) | payer OTHER, MEDICAID ==
[~2017-07-01] VITALS: Ht 180.3 cm; Wt 91.3 kg
[2017-07-01] VITALS (9 sets, daily range): BP systolic 114–167; BP diastolic 55–87; PULSE 74–103; RESP 19–28; O2SAT 90–98
[~2017-07-01 03:22] MED LIST changes: -ENOX100D4 SUBQ; -HYDR-4003 PO; +OXYC10TA8 PO; -OXYC5TAB72 PO
--- NOTE | 2017-07-01 03:27 | ED.REPORT ---
HPI-General Illness Date of Service Jul 01, 2017 ED Provider: Josr Fajardo MD A 62 year old male on Warfarin with a history of stage IV non-small cell adenocarcinoma of the right lung with metatheses to the brain, alcoholism, CAD, recurrent blood clots and DVT is brought to the ED via EMS due to chest pain. The pt began experiencing rib and chest pain with inspiration approximately ten hours ago. The pain is exacerbated by breathing deeply. The pt states that this pain is similar to the pain he has experienced previously when diagnosed with blood clots. He had a Gamma knife procedure to remove a brain tumor three months ago. Nursing Notes Stated Complaint: LEFT FLANK PAIN Chief Complaint: General Complaint Nursing Notes Reviewed: Yes Allergies: Coded Allergies: No Known Allergies (Verified Allergy, Unknown, 07/01/17) Scheduled Multivitamin (Multi Vitamin Daily) 1 Each Tablet 1 EACH PO DAILY Warfarin Sodium (Warfarin Sodium) 5 Mg Tablet 7 MG PO THU,,THU,,THU, Warfarin Sodium (Warfarin Sodium) 5 Mg Tablet 5 MG PO THURSDAY ONLY Scheduled PRN Cyclobenzaprine (Cyclobenzaprine) 10 Mg Tablet 10 MG PO TID PRN PRN Spasm Docusate Sodium (Colace) 100 Mg Capsule 100 MG PO QAM PRN PRN For Constipation oxyCODONE (oxyCODONE) 10 Mg Tablet 10 MG PO Q6H PRN PRN For Pain General Time Seen by MD: 03:26 Chief Complaint Chest pain Hx Obtained From: Patient, EMS Arrived By: Ambulance Sudden in Onset?: No Onset Occurred: 9 - 12 hours ago Symptom Duration: Since onset Recent Healthcare: Recent doctor visit, Recent hospitalization Similar Sx Previous: No Past Medical History Past Medical History Notes: Oncology: Dr. 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, mets to brain Severe osteoarthritis of the right hip Chronic alcoholism Mild emphysema CAD Current LLE DVT - as of 04/03/17 Past Surgical History Gastric ulcer repair Chemotherapy and Gamma knife procedure Smoking History Current Every Day Smoker Social History Alcohol Use: >5 per day Drug Use: THC Ambulatory Status Independent Review of Systems Full Review of Systems Respiratory: Reports: Pleuritic pain, Denies: Non-productive cough, Shortness of breath Cardiovascular: Reports: Chest pain GI: Denies: Abdominal pain, Vomiting Musculoskeletal: Denies: Back pain, Neck pain Skin: Denies Rash Complete sys rev & neg: except as marked. Physical Exam Vital Signs Vital Signs Date Time Temp Pulse Resp B/P Pulse Ox O2 Delivery O2 Flow Rate FiO2 07/01/17 04:56 92 21 122/74 98 Nasal Cannula 2 07/01/17 03:25 36.6 103 24 142/77 93 Nasal Cannula 2 Initial VS: Reviewed General/Constitutional: Awake, Alert Head / Eyes: Atraumatic, Normocephalic, PERRL, EOMI ENT: Atraumatic, Airway patent, Mucous membranes moist Neck: Atraumatic, Supple, Full range of motion Respiratory / Chest: Atraumatic, Breath sounds = bilat splinting diminished breath sounds bilaterally Cardiovascular: Heart rate NL, Regular rhythm, Heart sounds NL Abdomen: Atraumatic, Soft, Non-tender Back: Atraumatic, Full range of motion Upper Extremities Upper Extremity / MS: Atraumatic, Full range of motion Lower Extremity / Pelvis / MS: Atraumatic, Full range of motion Skin: Atraumatic, Color NL, No rash, Warm, Dry Neurologic: Oriented X3, Speech NL, No motor deficits, No sensory deficits Psychiatric: Affect NL, Mood NL Interpretation & Diagnostics Interpretation & Diagnostics: CT Angiogram Chest: IMPRESSION: Examination is positive for pulmonary embolism as above. History of lung cancer. Please note other findings above. Non-emergent incidental finding unrelated to the primary process found in this case. Follow-up recommended. Lab Results Interpretation Result Diagram: 07/01/17 0341 07/01/17 0341 Test 07/01/17 03:41 07/01/17 05:25 White Blood Count 13.7th/mm3 (3.8-10.1) Red Blood Count 4.84mil/mm3 (4.40-5.80) Hemoglobin 15.4g/dL (13.8-17.2) Hematocrit 46.6% (41.0-50.0) Mean Corpuscular Volume 96.3fL (81-100) Mean Corpuscular Hemoglobin 31.8pg (27.0-35.0) Mean Corpuscular Hemoglobin Concent 33.0% (32.0-37.0) Red Cell Distribution Width 15.3% (12.3-15.4) Platelet Count 282bil/L (150-400) Neutrophils (%) (Auto) 67.2% (40-74) Lymphocytes (%) (Auto) 17.3% (14-46) Monocytes (%) (Auto) 11.6% (4-12) Eosinophils (%) (Auto) 3.4% (0-5) Basophils (%) (Auto) 0.1% (0-3) Prothrombin Time 12.3sec (8.1-12.5) Prothromb Time International Ratio 1.15ratio Sodium Level 137mEq/L (134-144) Potassium Level 3.9mEq/L (3.5-5.2) Chloride Level 94mEq/L (97-108) Carbon Dioxide Level 22mmol/L (18-29) Blood Urea Nitrogen 14mg/dL (8-27) Creatinine 0.85mg/dL (0.76-1.27) Estimat Glomerular Filtration Rate 98mL/min (>59) Glucose Level 118mg/dL (60-99) Calcium Level 10.1mg/dL (8.5-10.1) Magnesium Level 2.1mg/dL (1.6-2.6) Total Bilirubin 0.5mg/dL (0.0-1.2) Aspartate Amino Transf (AST/SGOT) 20U/L (0-50) Alanine Aminotransferase (ALT/SGPT) 25U/L (0-44) Alkaline Phosphatase 57U/L (25-160) Troponin T 0.010ug/L (0.0-0.011) Total Protein 8.7g/dL (6.4-8.4) Albumin 4.8g/dL (3.4-5.0) Activated Partial Thromboplast Time 34.1sec (22.8-33.0) ECG Interpretation ECG Interpretation: normal sinus rhythm with a rate of 88 probable inferior infarct, old probable anteroseptal infarct, old Time: 04:03 Interpreted by: ED physician Re-Eval/Medical Decision Med Decision/Clinical Course [id number] prior pulmonary emboli presents with identical pain certainly is having pulmonary emboli. Indeed, his intuition is entirely correct. He has bilateral pulmonary emboli documented on CT scan tonight. His INR is 1.15, after he was advised to skip a dose for being over anticoagulated yesterday. This is a same sequence that happened to him once prior. He has had difficulty regulating his Coumadin, presumably as a result of a progressive hypercoagulable state secondary to his ongoing lung cancer. Admitted now for IV heparin and to reestablish adequate anticoagulation. Consider alternative anticoagulant to Coumadin. He is DO NOT RESUSCITATE and this status was confirmed with him directly. Source of Hx: Old records Time of Eval: 05:08 Patient Status: Condition improved Re-Evaluation/Progress Note: Pt rechecked, who is resting. The pt is feeling significantly better. Radiology results are addressed. The diagnosis and plan for admission are discussed. The pt understands and agrees with the plan. All questions are addressed at this time. Counseled Regarding: Diagnosis, Lab results, Need for admission Discharge & Departure Primary Impression: Bilateral pulmonary embolism Additional Impressions: Stage 4 lung cancer Laterality: unspecified laterality Qualified Code: C34.90 - Malignant neoplasm of unspecified part of unspecified bronchus or lung Subtherapeutic international normalized ratio (INR) Disposition: ADMITTED TO HOSPITAL Discharge Condition All VS Reviewed: Yes Condition: Stable Referrals: Nitza Diamond DO (PCP) Scribe Attestation Portions of this note were transcribed by Liudmila Loyd. I, Dr. Fajardo personally performed the history, physical exam and medical decision-making; I reviewed and confirmed the accuracy of the information in the transcribed note. copies to: Nitza Diamond Christopher W MD Jul 01, 2017 03:27 LIUDMILA LOYD Jul 01, 2017 03:36
[2017-07-01] MEDS ORDERED: 0.9% Sodium Chloride 1,000 ML IV ONE (03:41)
[2017-07-01] MEDS ORDERED: HYDROmorphone 1 mg/mL Inj IVPUSH ONE (03:45)
[2017-07-01] MEDS ORDERED: Ondansetron 2 mg/mL 2 mL Inj IVPUSH ONE (03:45)
[2017-07-01 04:00] LABS: BASOPHILS % (AUTO) 0.1 % (0-3); EOSINOPHILS % (AUTO) 3.4 % (0-5); MONOCYTES % (AUTO) 11.6 % (4-12); Mean Corpuscular Hemoglobin 31.8 pg (27.0-35.0); Mean Corpuscular Volume 96.3 fL (81-100); NEUTROPHILS % (AUTO) 67.2 % (40-74); Platelet Count 282 bil/L (150-400)
[2017-07-01 04:02] LABS: INR 1.15 ratio
[2017-07-01 04:12] LABS: TROPONIN T 0.01 ug/L (0.0-0.011)
[2017-07-01 04:25] LABS: Magnesium 2.1 mg/dL (1.6-2.6)
[2017-07-01] MEDS: HYDROmorphone 1 mg/mL Inj IVPUSH PRN ×6 (05:00→21:44)
[2017-07-01] MEDS ORDERED: Heparin 25,000 Unit/500 mL 0.45% NS Premix IV ONE (05:17)
[2017-07-01] MEDS ORDERED: Heparin 5,000 Unit/mL Inj ONE (05:17)
[2017-07-01] MEDS ORDERED: Heparin 1,000 Units/mL 10 mL DVT/PE Bolus Inj IVPUSH ONE (05:25)
[2017-07-01] MEDS ORDERED: Heparin 25K Unit/500mL 0.45 NS 25,000 UNIT in IV Premix 1 EACH IV SCH (05:25)
[2017-07-01] MEDS ORDERED: Heparin 5,000 Unit/mL Inj IVPUSH ONE (05:35)
[2017-07-01] MEDS ORDERED: Ondansetron 2 mg/mL 2 mL Inj IVPUSH PRN (08:10)
[2017-07-01] MEDS ORDERED: Alum-Mag Hydrox-Simeth 30 mL Suspension PO PRN (08:10)
[2017-07-01] MEDS ORDERED: Heparin 25K Unit/500mL 0.45 NS 25,000 UNIT in IV Premix 1 EACH IV ONE (08:10)
[2017-07-01] MEDS ORDERED: Polyethylene Glycol (PEG) 17 Gm Powder PO PRN (08:10)
[2017-07-01] MEDS: Heparin 25K Unit/500mL 0.45 NS 25,000 UNIT in IV Premix 1 EACH IV SCH ×2 (08:40→22:00)
--- NOTE | 2017-07-01 09:14 | DRSVH ---
PROCEDURE: CT ANGIO CHEST PULMONARY EMBOLISM ([id number]) INDICATIONS: pulmonary emboli TECHNIQUE: After the administration of intravenous contrast, 2 mm thick sections acquired from the pulmonary api dio to the posterior costophrenic angles. 3-dimensional maximum intensity projection (MIP) coronal a nd sagittal reformats were then acquired through the thorax. For radiation dose reduction, the follo wing was used: automated exposure control, adjustment of mA and/or kV according to patient size. COMPARISON: [facility], CT, CT CHEST ABD PELVIS W CON, 05/15/2017, 11:18. [facility], CT, CT ANGIO CHEST PE, 04/03/2017, 17:11. FINDINGS: Image quality: Excellent. Pulmonary arteries: Previous CT exam of 04/03/17 demonstrated multiple foci of pulmonary emboli. While overall degree of emboli have decreased since prior exam, there is residual occlusive filling defects identified predominantly within the bases, left greater than right. No new areas of emboli are ident ified. Lungs and pleura: The moderate emphysematous changes are again noted. There are faint areas of patchy opacity identified within the bases, new compared to prior exam. Subcentimeter previous identify pul monary nodules are unchanged. There is a trace left pleural effusion. No pneumothorax. Central and p eripheral airways are patent. Mediastinum: Heart size is mildly enlarged, without pericardial effusion. No mediastinal or hilar a denopathy. Thoracic aorta is normal in caliber and enhancement. Esophagus is normal in caliber, wit hout hiatal hernia. Bones and chest wall: No suspicious bony lesions. Ribs and thoracic spine appear intact throughout. Thyroid gland is unremarkable. No axillary or supraclavicular adenopathy. Abdomen: Visualized upper abdominal solid organs appear normal in the early arterial phase of enhanc ement. IMPRESSION: 1. Improved appearance of emboli compared to 04/03/17, with residual thrombus identified predominately within the bases, as described above. No new areas of emboli are identified. 2. Faint areas of patchy opacity within the bases. This could be footwear sales representative of atelectasis or ear ly infectious/inflammatory etiology. Dictated by: Sophie Floyd M.D. on 07/01/2017 at 9:07 Approved by: Sophie Floyd M.D. on 07/01/2017 at 9:12
--- NOTE | 2017-07-01 09:25 | PCM.HPMED ---
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 Patient denies any activity at the time of onset, but he has had a pulmonary embolus once in the past of annular side and states this was the identical sensation. Gamma procedure was done a couple of months ago for which he came off his Coumadin therapy only a couple of days, since then been restarted he was postoperative repeat MRI study today in fact to evaluate the efficacy of that procedure. During the time my evaluation he is continuing to experience intermittent chest pain worsening with deep breaths. Pain is lateral / posterior and pleuritic in nature. He denies any other chest pains or palpitations. Emergency room evaluation, consisted of CT angiogram initially read as positive by emergency department physician but disputed by radiologist, is nonetheless started on heparin drip prior to arrival to floor. He was additionally found to be subtherapeutic, with an INR of 1.15 Review of Systems: A 10 point review of systems was conducted and entirely negative excepting pertinent positives and negative included in above HPI. Allergies Coded Allergies: No Known Allergies (Verified Allergy, Unknown, 07/01/17) Home Medications Multivitamin (Multi Vitamin Daily) 1 Each Tablet 1 EACH PO DAILY Warfarin Sodium (Warfarin Sodium) 5 Mg Tablet 7 MG PO THU,,THU,,THU,ROBERSON Warfarin Sodium (Warfarin Sodium) 5 Mg Tablet 5 MG PO THURSDAY ONLY Scheduled PRN Cyclobenzaprine (Cyclobenzaprine) 10 Mg Tablet 10 MG PO TID PRN PRN Spasm Docusate Sodium (Colace) 100 Mg Capsule 100 MG PO QAM PRN PRN For Constipation oxyCODONE (oxyCODONE) 10 Mg Tablet 10 MG PO Q6H PRN PRN For Pain PMH Non-small cell adenocarcinoma of the right lung - Stage IV, mets to brain Severe osteoarthritis of the right hip Chronic alcoholism Mild emphysema CAD Current LLE DVT - as of 04/03/17 Surgical History Gastric ulcer repair Chemotherapy and Gamma knife procedure Family History PGF had lung cancer, of suicide Social History Hx Alcohol Use: Yes (QUIT ) Hx Substance Use: Yes (PRESRIBED PAIN MEDS FOR HIP HYDROCODONE; MEDICAL MARIJUANA) Smoking Status: Current Every Day Smoker Exam Vital Signs Vital Sign - Last Date Time Temp Pulse Resp B/P Pulse Ox O2 Delivery O2 Flow Rate FiO2 07/01/17 09:17 36.6 74 19 114/55 93 Nasal Cannula 2 Intake and Output 06/30/17 06/30/17 07/01/17 Cumulative From/Thru 15:00 23:00 07:00 07/01/17 03:25 - 07/01/17 04:41 Intake Total 1000 ml 1000 ml Balance 1000 ml 1000 ml Intake IV Total 1000 ml 1000 ml General: Alert, Oriented X3, Cooperative, Moderate Distress Mouth: Mucous Membr Moist/[place] Chest & Lungs: Clear to auscultation & percussion, Coarse breath sounds Cardiovascular: Regular Rate/Rhythm Abdomen: Non-tender, Non-distended Extremities: No cyanosis/clubbing/edma bilat Neurological: Grossly Neurologically Intact Lab and Diagnostics Result Diagram: 07/01/1734007/01/17 034 Assessment & Plan 62-year-old male past medical history significant for non-small cell lymphoma presenting stabbing chest pain of acute onset likely pulmonary embolism as cause , admitted for further evaluation and treatment #. Pulmonary embolism/likely hypercoagulable state - Though initially read as negative, clinical presentation is indeed classic for pulmonary embolism and in addition patient has extensive medical history of thromboembolus likely related in part to hypercoagulable state created by neoplasm - He was started on heparin drip in emergency department, and in spite of initially negative read by radiologist this was continued to further evaluation by test case developer who confirms the presence of new embolism at the site of patient's stabbing chest pain on left side - We will continue heparin drip at this time as per DVT protocol and consider transition to now agent, direct acting anticoagulant in place of the warfarin therapy. - As per pulmonology recommendation, though patient was subtherapeutic on admission, in the setting of recurrent thromboembolus even at therapeutic levels , Coumadin therapy is not the standard of care in this case. - We will additionally consult patient's oncologist Dr. Mccarty, determine optimal lesion prior to discharge/discontinuation of heparin therapy - In the interim patient will be provided when necessary medications for pain, supportive oxygen therapy as needed. #. Non-small cell lymphoma with metastasis - May consider follow-up MRI study while patient is in hospital as he was scheduled to have back conducted today - We will defer further treatment recommendations the patient's oncologist Dr. Mccarty, anticipate consult in a.m. #Tobacco dependence - Pt endorses active use - NicoDerm patch declined at this time, may reconsider at patient request - Benefits of cessation discussed, patient will consider. Pain Evaluation: Adequate Pain Control GI Prophylaxis: Not indicated VTE Prophylaxis: Other (Heparin drip) Resuscitation Status: DNR/DNI:Do Not Resuscitate/Intubate Time spent 55 minutes Sravan Drake DO Jul 01, 2017 09:25
[2017-07-01] MEDS: HYDROcodone-APAP 7.5-325 mg Tablet PO PRN ×3 (09:56→20:54)
[2017-07-01] MEDS ORDERED: WARF2TAB7 PO (10:03)
[2017-07-01] MEDS ORDERED: WARF5TAB PO (10:03)
[2017-07-01] MEDS ORDERED: OXYC-466 PO (10:05)
--- NOTE | 2017-07-01 15:07 | NUR ---
Admit from ER; pain; repiratory Pt. admitted from ER this am; report received from Hector Dwyer RN. Pt. c/o 8-07/12 left sided chest pain which increases with activity; pt. sob with any exertion; tachypneic. Receiving prn dilaudid with mod relief; pt. able to sleep after dose; woke up with increased pain, sob, and cramping; notified md; requested frequency of pain medication to be increased; waiting for orders. Pt. received norco x2 with mod relief. Heparin gtt currently infusing at 17 u/kg/hr; see heparin intervention.
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
--- NOTE | 2017-07-01 16:51 | DRSVH ---
[facility] [address] [place] [address] Echocardiogram Report Name: ANGIE KAISER LStudy Date : 07/01/2017 Height: 71 in Hospital Exam Location: [facility] Weight: 195 lb Gender: Male BSA: 2.1 m2 : 1955 Age: 62 yrs BP: 114/ 55 mmHg Reason For Study: Pulmonary- Embolism, RIGHT HEART STRAIN Ordering Physician: Andreas Boucher Performed By: Romeo Rhoades Referring Physician: MANAV HOLLIS Interpretation Summary The right ventricle is normal in size, thickness and function. Pulmonary artery pressures cannot be estimated because of the lack of a measurable TR jet velocity. There has been no significant change since the previous study. Procedure: A two-dimensional transthoracic echocardiogram with color flow and Doppler was performed in limited views only. The study quality was technically adequate. The patient was in normal sinus rhythm during the exam. Right Ventricle: The right ventricle is normal in size, thickness and function. There has been no significant change since the previous study. Tricuspid Valve: Pulmonary artery pressures cannot be estimated because of the lack of a measurable TR jet velocity. Reading Physician:ARMINDA
[2017-07-01] MEDS ORDERED: Lidocaine Topical 5% Patch TOPICAL ONE (17:00)
[2017-07-01] MEDS: Heparin Protocol Boluses IVPUSH PRN (18:57)
[2017-07-02] VITALS (9 sets, daily range): BP systolic 116–163; BP diastolic 70–85; PULSE 74–88; RESP 22–24; O2SAT 93–98
[2017-07-02] MEDS: HYDROmorphone 1 mg/mL Inj IVPUSH PRN ×4 (04:36→19:41)
[2017-07-02] MEDS: HYDROcodone-APAP 7.5-325 mg Tablet PO PRN ×4 (06:00→22:01)
[2017-07-02 06:27] LABS: BASOPHILS % (AUTO) 0.2 % (0-3); EOSINOPHILS % (AUTO) 2.6 % (0-5); MONOCYTES % (AUTO) 10.7 % (4-12); Mean Corpuscular Hemoglobin 31.9 pg (27.0-35.0); Mean Corpuscular Volume 96.5 fL (81-100); Platelet Count 213 bil/L (150-400)
--- NOTE | 2017-07-02 07:35 | NUR ---
Pain/Restful Night Pt c/o 8-10/10 left lower lateral chest pain, around lower ribs, this was much worsened by activity/deeper breaths. Pt was encouraged to use pillow to splint w/ cough/activity and to use urinal in bed for the time being. Pt given Dilaudid and Lee at start of shift w/ good effect. Pt voiced that he slept well and had no c/o of pain until this morning when he needed to urinate. Pt given Dilaudid and stated pain gone at rest but returned to 7/10 w/ deep breathing. Given Lee and appears to be sleeping w/ reassessment. Overall pt voiced that he had a good night's sleep. Vitals stable. Heparin drip continues.
--- NOTE | 2017-07-02 09:25 | NUR ---
Social Work-initial assessment: Data:See initial assessment. Pt is a 62 y/o male who was admitted on 07/01/17 for PE per H&P. Pt's insurance is [employer] and PCP is [facility]. EMR Reviewed. Pt's readmission score is 4-high risk. SW met with pt at bedside, SW role explained. Pt is alert and oriented x3. Pt resides at home in an RV with his SO Karma where he remains independent with ADLS. Pt drives and does not use any DME. pt has no HH or SNF history. Pt has no alf care insurance or VA benefits. SW discussed DPOA/ advanced directive, pt declining any information at this time. Pt sees Dr. Mccarty for oncology. No concerns noted about pt's capacity for self care from RN or MD. Pt has been up independent in his room. SW provided pt with discharge planning checklist and encouraged him to call with any questions, phone number provided on white board in room. Pt's SO to provide transport home. No anticipated discharge needs. SW will continue to follow if needs arise. Assessment:pt who is independent at baseline. Plan:Pt to discharge home when medically stable via POV. No anticipated discharge needs. SW will continue to follow if needs arise. FELIPE Garcia Addendum: 07/02/17 at 0929 by RANCHO RAI SS Amended: Links added.
--- NOTE | 2017-07-02 09:26 | PCM.PNMED ---
Subjective Date of Service Jul 02, 2017 Subjective Pulmonary critical care progress note requested by Dr. 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 He had been on Warfarin for thrombotic prophylaxis but was experiencing labile INRs requiring interruption of his Warfarin dosing, which is not the optimal medication in his situation regardless. Today the patient states that his pain with inspiration transiently improves with IV analgesia, but has essentially remained unchanged in between dosing. He denies chest pain, fevers/chills, nausea, vomiting, or changes in bowel or bladder habits. Comprehensive ROS negative except as listed above. Exam Vital Signs Vital Sign - Last Date Time Temp Pulse Resp B/P Pulse Ox O2 Delivery O2 Flow Rate FiO2 07/02/17 08:06 Supplement Oxygen 07/02/17 04:35 76 07/02/17 04:18 37.0 22 163/84 93 3.00 Intake and Output 07/01/17 07/01/17 07/02/17 Cumulative From/Thru 15:00 23:00 07:00 07/01/17 03:25 - 07/02/17 06:43 Intake Total 1199 ml 200 ml 2399 ml Output Total 1225 ml 475 ml 1700 ml Balance -26 ml -275 ml 699 ml Intake Oral 900 ml 200 ml 1100 ml IV Total 299 ml 1299 ml Output Urine Total 1225 ml 475 ml 1700 ml # Bowel Movements 0 0 Exam Gen: A/O x3 pleasant cooperative gentleman in mild acute distress secondary to pain with respiration and resultant spasms improved compared to prior exam Neck: Supple, non tender, no JVD, no thyromegaly HEENT: PERRL, EOMI, no scleral icterus, no conjunctival pallor CV: RRR, no murmurs rubs or gallops Resp: Lungs with diffuse expiratory wheezing, pain with anything beyond very shallow respiration, no rales or rhonchi Chest: Minor tenderness to palpation along posterior ribs 8-10 Abd: Soft, non tender, no rebound guarding masses or tenderness Extr: BL clubbing or UE digits, no cyanosis or edema, normal capillary refill Neuro: CN 2-12 grossly intact, no focal neurologic deficit Psych: Pleasant and appropriate mood and affect. IVs and Medications Medications Reviewed: Medications were reviewed in detail Lab and Diagnostics Item Value Date Time Red Blood Count 4.23 mil/mm3 L 07/02/17529 Mean Corpuscular Volume 96.5 fL 07/02/17529 Mean Corpuscular Hemoglobin 31.9 pg 07/02/17529 Mean Corpuscular Hemoglobin Concent 33.1 % 07/02/17529 Red Cell Distribution Width 14.8 % 07/02/17529 Neutrophils (%) (Auto) 75.0 % H 07/02/17529 Lymphocytes (%) (Auto) 11.2 % L 07/02/17529 Monocytes (%) (Auto) 10.7 % 07/02/17529 Eosinophils (%) (Auto) 2.6 % 07/02/17529 Basophils (%) (Auto) 0.2 % 07/02/17529 Estimat Glomerular Filtration Rate 146 mL/min 07/02/17529 Calcium Level 9.2 mg/dL 07/02/17529 Total Bilirubin 0.5 mg/dL 07/02/17529 Aspartate Amino Transf (AST/SGOT) 13 U/L 07/02/17529 Alanine Aminotransferase (ALT/SGPT) 14 U/L 07/02/17529 Alkaline Phosphatase 43 U/L 07/02/17529 Total Protein 6.7 g/dL 07/02/17529 Albumin 3.7 g/dL 07/02/17529 Procalcitonin 0.05 ng/mL 07/01/17 0341 Result Diagram: 07/02/1752907/02/17529 X-Rays, CTs and MRIs CT ANGIO CHEST PULMONARY EMBOLISM IMPRESSION: 1. Improved appearance of emboli compared to 04/03/17, with residual thrombus identified predominately within the bases, as described above. No new areas of emboli are identified. 2. Faint areas of patchy opacity within the bases. This could be manufacturers representative of atelectasis or early infectious/inflammatory etiology. Dictated by: Sophie Floyd M.D. on 07/01/2017 at 9:07 Approved by: Sophie Floyd M.D. on 07/01/2017 at 9:12 . Cardiac Echo Impressions Interpretation Summary The right ventricle is normal in size, thickness and function. Pulmonary artery pressures cannot be estimated because of the lack of a measurable TR jet velocity. There has been no significant change since the previous study. . Assessment & Plan Mr. 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 ACCP guidelines indicated that Warfarin is not the indicated treatment for thrombosis related to malignancy, rather Lovenox or NOACs would be the optimal choice in this gentleman. His his intracranial process a reversible agent such as Pradaxa would appear to be the logical choice for ongoing anti-coagulation. Clearly this is a patient with highly labile INRs on Warfarin who has had multiple thrombotic events on this medication and would greatly benefit from optimization of his anticoagulation strategy. The patient should be trialed on room air over the course of the day to ascertain his readiness for discharge. Acute Pulmonary Embolism, POA. Active -CT indicative of resolving R PE, new LLL PE -Continue with Heparin drip -Maintain Tele and O2 monitoring -DC Warfarin upon discharge -Transition to agent recommended by the ACCP, lovenox or a NOAC -Pradaxa would appear to be a likely choice for this gentleman given it's reversibility, however all anticoagulation will ultimately be deferred to Dr. Mccarty who is following the patient -Lidoderm patch for local intercostal spastic pain -Diazepam for relief of spastic intercostal contractions Stage 4 non small cell lung cancer, POA, chronic. Stable -No indication of active mass lesion on CT -Will defer oncological management to Dr. Mccarty who has been managing this patient -Anticoagulation more in keeping with malignancy related thrombophilia as above -Patient is inquiring about the possibility of brain MRI which had been scheduled yesterday as an outpatient, will defer to primary team for arrangement. Tobacco abuse, POA, chronic. Stable -Patient admits to an continued smoking, averaging about 1 daily -Counseled about the imperative of smoking cessation -Will defer nicotine replacement to primary team . Pain Evaluation: Adequate Pain Control GI Prophylaxis: Not indicated VTE Prophylaxis: Other (Heparin drip) Resuscitation Status: DNR/DNI:Do Not Resuscitate/Intubate Jayesh Zeng DO Jul 02, 2017 09:26
--- NOTE | 2017-07-02 11:30 | PCM.PNMED ---
Subjective Date of Service Jul 02, 2017 Subjective Pt continues to endorse intermittent but very severe left sided sharp stabbing chest pain with deep inhalation. Controlled reasonably well with current PRN medications. This is his only complaints, otherwise denies palpitation, denies sweats/chills, appetite is adequate., Exam Vital Signs Vital Sign - Last Date Time Temp Pulse Resp B/P Pulse Ox O2 Delivery O2 Flow Rate FiO2 07/02/17 09:42 36.6 78 22 117/77 97 Nasal Cannula 3.00 Intake and Output 07/01/17 07/01/17 07/02/17 Cumulative From/Thru 15:00 23:00 07:00 07/01/17 03:25 - 07/02/17 06:43 Intake Total 1199 ml 200 ml 2399 ml Output Total 1225 ml 475 ml 1700 ml Balance -26 ml -275 ml 699 ml Intake Oral 900 ml 200 ml 1100 ml IV Total 299 ml 1299 ml Output Urine Total 1225 ml 475 ml 1700 ml # Bowel Movements 0 0 Exam General: Alert, Oriented X3, Cooperative, Moderate Distress with inhalation noted, at times severe Mouth: Mucous Membr Moist/[place] Chest & Lungs: Clear to auscultation & percussion, Coarse breath sounds Cardiovascular: Regular Rate/Rhythm Abdomen: Non-tender, Non-distended Extremities: No cyanosis/clubbing/edema bilat Neurological: Grossly Neurologically Intact IVs and Medications Medications Reviewed: Medications were reviewed in detail Lab and Diagnostics Result Diagram: 07/02/17 0530 07/02/17 0530 X-Rays, CTs and MRIs CT ANGIO CHEST PULMONARY EMBOLISM IMPRESSION: 1. Improved appearance of emboli compared to 04/03/17, with residual thrombus identified predominately within the bases, as described above. No new areas of emboli are identified. 2. Faint areas of patchy opacity within the bases. This could be title insurance sales representative of atelectasis or early infectious/inflammatory etiology. Dictated by: Sophie Floyd M.D. on 07/01/2017 at 9:07 Approved by: Sophie Floyd M.D. on 07/01/2017 at 9:12 . Cardiac Echo Impressions Interpretation Summary The right ventricle is normal in size, thickness and function. Pulmonary artery pressures cannot be estimated because of the lack of a measurable TR jet velocity. There has been no significant change since the previous study. . Assessment & Plan 62-year-old male past medical history significant for non-small cell lymphoma presenting stabbing chest pain of acute onset likely pulmonary embolism as cause , admitted for further evaluation and treatment #. Pulmonary embolism/likely hypercoagulable state - Though initially read as negative, clinical presentation is indeed classic for pulmonary embolism and in addition patient has extensive medical history of thromboembolus likely related in part to hypercoagulable state created by neoplasm - He was started on heparin drip in emergency department, and in spite of initially negative read by radiologist this was continued to further evaluation by note taker who confirms the presence of new embolism at the site of patient's stabbing chest pain on left side - We will continue heparin drip at this time as per DVT protocol and consider transition to new oral agent, direct acting anticoagulant in place of the warfarin therapy. Pradaxa would be one such agent, as recommended by Pulmonology surgery consultant. Pt notes discussing this with Dr Mccarty in the past but notes there were issues with insurance coverage. IN the setting of know hypercoagulable state related to neoplasm however, there are preferred agents to Warfarin and this will hopefully be reconsidered by insurance company. Plan to discuss further with Dr Mccarty. - Oncology office notified, Dr Mccarty out today, will be back in office tomorrow. - In the interim patient will continue provided when necessary medications for pain, supportive oxygen therapy as needed. #. Non-small cell lymphoma with metastasis - May consider follow-up MRI study while patient is in hospital as he was scheduled to have back conducted today - We will defer further treatment recommendations the patient's oncologist Dr. Mccarty, anticipate consult in a.m. #Tobacco dependence - Pt endorses active use - NicoDerm patch declined at this time, may reconsider at patient request - Benefits of cessation discussed, patient will consider. Pain Evaluation: Adequate Pain Control GI Prophylaxis: Not indicated VTE Prophylaxis: Other (Heparin drip) Resuscitation Status: DNR/DNI:Do Not Resuscitate/Intubate Time spent 35 minutes Sravan Drake DO Jul 02, 2017 11:30
[2017-07-02] MEDS: Heparin 25K Unit/500mL 0.45 NS 25,000 UNIT in IV Premix 1 EACH IV SCH (13:50)
[2017-07-02] MEDS: Heparin Protocol Boluses IVPUSH PRN (18:12)
--- NOTE | 2017-07-02 18:26 | NUR ---
Pain Pt c/o of pain 7-8/10 chest upon coughing, given PRN Dilaudid and [place] with good relief 4-5/10 reported. Pt states once has cough pt is back up to 7-8/10 pain. Pt instructed to try and stay ahead of pain, verbalized understanding. Pt has no s/sx of bleeding, heparin drip has been adjusted x 2 up. Will continue to monitor for bleeding. Pt currently eating dinner with call light within reach, bed low and locked, intentional rounding.
[2017-07-03] VITALS (7 sets, daily range): BP systolic 135–163; BP diastolic 79–80; PULSE 66–83; RESP 20–24; O2SAT 92–97
[2017-07-03] MEDS: HYDROmorphone 1 mg/mL Inj IVPUSH PRN ×6 (00:04→19:48)
--- NOTE | 2017-07-03 02:45 | NUR ---
PTT/pain PTT within goal range. Next PTT is scheduled for 6AM. No s/s of bleeding. [place] and Dilaudid given per pt's request. Pt also requested Valium that helped previously with chest pain when coughing. Rec'd an order and given. Pt reported relief and less pain when coughing this shift. sleeping intermittently. Hourly rounding done.
[2017-07-03] MEDS: Heparin 25K Unit/500mL 0.45 NS 25,000 UNIT in IV Premix 1 EACH IV SCH ×2 (04:37→19:29)
[2017-07-03 06:28] LABS: BASOPHILS % (AUTO) 0.2 % (0-3); EOSINOPHILS % (AUTO) 3.1 % (0-5); MONOCYTES % (AUTO) 11.2 % (4-12); Mean Corpuscular Hemoglobin 31.7 pg (27.0-35.0); Mean Corpuscular Volume 96.3 fL (81-100); Platelet Count 213 bil/L (150-400)
[2017-07-03] MEDS ORDERED: Albuterol 2.5 mg/3 mL Inhalation Solution NEB PRN (08:00)
[2017-07-03] MEDS: Morphine ER 15 mg (MS Contin) Tablet PO SCH ×2 (08:14→19:48)
--- NOTE | 2017-07-03 10:41 | PCM.PNMED ---
Subjective Date of Service Jul 03, 2017 Subjective Pulmonary critical care progress note requested by Dr. 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 He had been on Warfarin for thrombotic prophylaxis but was experiencing labile INRs requiring interruption of his Warfarin dosing, which is not the optimal medication in his situation regardless. Today Mr. Reynolds feels incrementally improved. He is getting a little more pain relief from analgesic medication and the effect is lasting longer, however he continues to have pain with inspiration in between analgesic dosing. He states that he is otherwise well and denies chest pain, fevers/chills, nausea, vomiting or diarrhea. The patient did request a Valium which had been moderately effective in reducing his spastic pain. Comprehensive ROS negative except as outlined above. Exam Vital Signs Vital Sign - Last Date Time Temp Pulse Resp B/P Pulse Ox O2 Delivery O2 Flow Rate FiO2 07/03/17 07:29 Supplement Oxygen 07/03/17 06:19 66 07/03/17 04:35 37.0 24 163/79 95 3.00 Intake and Output 07/02/17 07/02/17 07/03/17 Cumulative From/Thru 15:00 23:00 07:00 07/01/17 03:25 - 07/03/17 05:19 Intake Total 408 ml 1385 ml 1054 ml 5246 ml Output Total 1375 ml 725 ml 3800 ml Balance 408 ml 10 ml 329 ml 1446 ml Intake Oral 1036 ml 600 ml 2736 ml IV Total 408 ml 349 ml 454 ml 2510 ml Output Urine Total 1375 ml 725 ml 3800 ml # Bowel Movements 0 0 0 Exam Gen: A/O x3 pleasant cooperative gentleman in mild acute distress secondary to pain with respiration and resultant spasms, continued incremental improvement compared to prior exam Neck: Supple, non tender, no JVD, no thyromegaly HEENT: PERRL, EOMI, no scleral icterus, no conjunctival pallor CV: RRR, no murmurs rubs or gallops Resp: Lungs with diffuse expiratory wheezing, pain with anything beyond shallow respiration, no rales or rhonchi Abd: Soft, non tender, no rebound guarding masses or tenderness Extr: BL clubbing or UE digits, no cyanosis or edema, normal capillary refill Neuro: CN 2-12 grossly intact, no focal neurologic deficit Psych: Pleasant and appropriate mood and affect. IVs and Medications Medications Reviewed: Medications were reviewed in detail Lab and Diagnostics Item Value Date Time Red Blood Count 4.04 mil/mm3 L 07/03/17557 Mean Corpuscular Volume 96.3 fL 07/03/17557 Mean Corpuscular Hemoglobin 31.7 pg 07/03/17557 Mean Corpuscular Hemoglobin Concent 32.9 % 07/03/17557 Red Cell Distribution Width 14.5 % 07/03/17557 Neutrophils (%) (Auto) 71.0 % 07/03/17557 Lymphocytes (%) (Auto) 14.3 % 07/03/17557 Monocytes (%) (Auto) 11.2 % 07/03/17557 Eosinophils (%) (Auto) 3.1 % 07/03/17557 Basophils (%) (Auto) 0.2 % 07/03/17557 Estimat Glomerular Filtration Rate 146 mL/min 07/03/17557 Calcium Level 9.0 mg/dL 07/03/17557 Result Diagram: 07/03/1755707/03/17557 X-Rays, CTs and MRIs CT ANGIO CHEST PULMONARY EMBOLISM IMPRESSION: 1. Improved appearance of emboli compared to 04/03/17, with residual thrombus identified predominately within the bases, as described above. No new areas of emboli are identified. 2. Faint areas of patchy opacity within the bases. This could be life assurance representative of atelectasis or early infectious/inflammatory etiology. Dictated by: Sophie Floyd M.D. on 07/01/2017 at 9:07 Approved by: Sophie Floyd M.D. on 07/01/2017 at 9:12 . Cardiac Echo Impressions Interpretation Summary The right ventricle is normal in size, thickness and function. Pulmonary artery pressures cannot be estimated because of the lack of a measurable TR jet velocity. There has been no significant change since the previous study. . Assessment & Plan Mr. 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 ACCP guidelines indicated that Warfarin is not the indicated treatment for thrombosis related to malignancy, rather Lovenox or NOACs would be the optimal choice in this gentleman. His his intracranial process a reversible agent such as Pradaxa would appear to be the logical choice for ongoing anti-coagulation. Clearly this is a patient with highly labile INRs on Warfarin who has had multiple thrombotic events on this medication and would greatly benefit from optimization of his anticoagulation strategy. The patient should be trialed on room air over the course of the day to ascertain his readiness for discharge. Patient with incremental improvement since prior examination. Acute Pulmonary Embolism, POA. Active -CT indicative of resolving R PE, new LLL PE -Continue with Heparin drip -Maintain Tele and O2 monitoring -DC Warfarin upon discharge -Transition to agent recommended by the ACCP, lovenox or a NOAC -Pradaxa would appear to be a likely choice for this gentleman given it's reversibility, however all anticoagulation will ultimately be deferred to Dr. Mccarty who is following the patient -Lidoderm patch for local intercostal spastic pain -Diazepam for relief of spastic intercostal contractions Stage 4 non small cell lung cancer, POA, chronic. Stable -No indication of active mass lesion on CT -Will defer oncological management to Dr. Mccarty who has been managing this patient -Anticoagulation more in keeping with malignancy related thrombophilia as above -Patient is inquiring about the possibility of brain MRI which had been scheduled yesterday as an outpatient, will defer to primary team for arrangement. Tobacco abuse, POA, chronic. Stable -Patient admits to an continued smoking, averaging about 1 daily -Counseled about the imperative of smoking cessation -Will defer nicotine replacement to primary team . Pain Evaluation: Adequate Pain Control GI Prophylaxis: Not indicated VTE Prophylaxis: Other (Heparin drip) Resuscitation Status: DNR/DNI:Do Not Resuscitate/Intubate Jayesh Zeng DO Jul 03, 2017 10:41
[2017-07-03] MEDS: Albuterol-Ipratropium 3 mL Inhalation Solution NEB SCH ×3 (13:43→19:55)
--- NOTE | 2017-07-03 14:04 | PCM.PNMED ---
Subjective Date of Service Jul 03, 2017 Subjective Patient having a lot of breakthrough chest pain daily with deep inspiration on the left. Exam Vital Signs Vital Sign - Last Date Time Temp Pulse Resp B/P Pulse Ox O2 Delivery O2 Flow Rate FiO2 07/03/17 07:29 Supplement Oxygen 07/03/17 06:19 66 07/03/17 04:35 37.0 24 163/79 95 3.00 Intake and Output 07/02/17 07/02/17 07/03/17 Cumulative From/Thru 15:00 23:00 07:00 07/01/17 03:25 - 07/03/17 05:19 Intake Total 408 ml 1385 ml 1054 ml 5246 ml Output Total 1375 ml 725 ml 3800 ml Balance 408 ml 10 ml 329 ml 1446 ml Intake Oral 1036 ml 600 ml 2736 ml IV Total 408 ml 349 ml 454 ml 2510 ml Output Urine Total 1375 ml 725 ml 3800 ml # Bowel Movements 0 0 0 Exam Constitutional: Middle-aged male in some moderate pain distress Head: Normocephalic atraumatic Chest: Decreased breath sounds at his left base Cor: Regular rate and rhythm S1-S2 without murmur Abdomen: Soft nontender bowel sounds present Extremities: No pedal edema Skin: No rashes Psych: Mood and affect are appropriate Neuro: Alert and oriented 3, motor strength is intact bilaterally Lab and Diagnostics Laboratory Tests 72 Hours Test 07/01/17 03:41 07/01/17 05:25 07/01/17 08:37 07/01/17 11:35 White Blood Count 13.7th/mm3 (3.8-10.1) Red Blood Count 4.84mil/mm3 (4.40-5.80) Hemoglobin 15.4g/dL (13.8-17.2) Hematocrit 46.6% (41.0-50.0) Mean Corpuscular Volume 96.3fL (81-100) Mean Corpuscular Hemoglobin 31.8pg (27.0-35.0) Mean Corpuscular Hemoglobin Concent 33.0% (32.0-37.0) Red Cell Distribution Width 15.3% (12.3-15.4) Platelet Count 282bil/L (150-400) Neutrophils (%) (Auto) 67.2% (40-74) Lymphocytes (%) (Auto) 17.3% (14-46) Monocytes (%) (Auto) 11.6% (4-12) Eosinophils (%) (Auto) 3.4% (0-5) Basophils (%) (Auto) 0.1% (0-3) Prothrombin Time 12.3sec (8.1-12.5) Prothromb Time International Ratio 1.15ratio Sodium Level 137mEq/L (134-144) Potassium Level 3.9mEq/L (3.5-5.2) Chloride Level 94mEq/L (97-108) Carbon Dioxide Level 22mmol/L (18-29) Blood Urea Nitrogen 14mg/dL (8-27) Creatinine 0.85mg/dL (0.76-1.27) Estimat Glomerular Filtration Rate 98mL/min (>59) Glucose Level 118mg/dL (60-99) Calcium Level 10.1mg/dL (8.5-10.1) Magnesium Level 2.1mg/dL (1.6-2.6) Total Bilirubin 0.5mg/dL (0.0-1.2) Aspartate Amino Transf (AST/SGOT) 20U/L (0-50) Alanine Aminotransferase (ALT/SGPT) 25U/L (0-44) Alkaline Phosphatase 57U/L (25-160) Troponin T 0.010ug/L (0.0-0.011) Total Protein 8.7g/dL (6.4-8.4) Albumin 4.8g/dL (3.4-5.0) Procalcitonin 0.05ng/mL (0.00-0.08) Activated Partial Thromboplast Time 34.1sec (22.8-33.0) 94.4sec (22.8-33.0) 60.1sec (22.8-33.0) Test 07/01/17 17:33 07/01/17 23:20 07/02/17 05:30 07/02/17 11:24 Activated Partial Thromboplast Time 46.8sec (22.8-33.0) 90.7sec (22.8-33.0) 75.2sec (22.8-33.0) 59.1sec (22.8-33.0) White Blood Count 9.9th/mm3 (3.8-10.1) Red Blood Count 4.23mil/mm3 (4.40-5.80) Hemoglobin 13.5g/dL (13.8-17.2) Hematocrit 40.8% (41.0-50.0) Mean Corpuscular Volume 96.5fL (81-100) Mean Corpuscular Hemoglobin 31.9pg (27.0-35.0) Mean Corpuscular Hemoglobin Concent 33.1% (32.0-37.0) Red Cell Distribution Width 14.8% (12.3-15.4) Platelet Count 213bil/L (150-400) Neutrophils (%) (Auto) 75.0% (40-74) Lymphocytes (%) (Auto) 11.2% (14-46) Monocytes (%) (Auto) 10.7% (4-12) Eosinophils (%) (Auto) 2.6% (0-5) Basophils (%) (Auto) 0.2% (0-3) Sodium Level 134mEq/L (134-144) Potassium Level 4.4mEq/L (3.5-5.2) Chloride Level 99mEq/L (97-108) Carbon Dioxide Level 19mmol/L (18-29) Blood Urea Nitrogen 12mg/dL (8-27) Creatinine 0.60mg/dL (0.76-1.27) Estimat Glomerular Filtration Rate 146mL/min (>59) Glucose Level 98mg/dL (60-99) Calcium Level 9.2mg/dL (8.5-10.1) Total Bilirubin 0.5mg/dL (0.0-1.2) Aspartate Amino Transf (AST/SGOT) 13U/L (0-50) Alanine Aminotransferase (ALT/SGPT) 14U/L (0-44) Alkaline Phosphatase 43U/L (25-160) Total Protein 6.7g/dL (6.4-8.4) Albumin 3.7g/dL (3.4-5.0) Test 07/02/17 17:41 07/03/17 00:15 07/03/17 05:58 Activated Partial Thromboplast Time 47.6sec (22.8-33.0) 83.3sec (22.8-33.0) 77.7sec (22.8-33.0) White Blood Count 9.0th/mm3 (3.8-10.1) Red Blood Count 4.04mil/mm3 (4.40-5.80) Hemoglobin 12.8g/dL (13.8-17.2) Hematocrit 38.9% (41.0-50.0) Mean Corpuscular Volume 96.3fL (81-100) Mean Corpuscular Hemoglobin 31.7pg (27.0-35.0) Mean Corpuscular Hemoglobin Concent 32.9% (32.0-37.0) Red Cell Distribution Width 14.5% (12.3-15.4) Platelet Count 213bil/L (150-400) Neutrophils (%) (Auto) 71.0% (40-74) Lymphocytes (%) (Auto) 14.3% (14-46) Monocytes (%) (Auto) 11.2% (4-12) Eosinophils (%) (Auto) 3.1% (0-5) Basophils (%) (Auto) 0.2% (0-3) Sodium Level 136mEq/L (134-144) Potassium Level 4.7mEq/L (3.5-5.2) Chloride Level 101mEq/L (97-108) Carbon Dioxide Level 21mmol/L (18-29) Blood Urea Nitrogen 14mg/dL (8-27) Creatinine 0.60mg/dL (0.76-1.27) Estimat Glomerular Filtration Rate 146mL/min (>59) Glucose Level 101mg/dL (60-99) Calcium Level 9.0mg/dL (8.5-10.1) Result Diagram: 07/03/17 0558 07/03/17 0558 X-Rays, CTs and MRIs CT ANGIO CHEST PULMONARY EMBOLISM IMPRESSION: 1. Improved appearance of emboli compared to 04/03/17, with residual thrombus identified predominately within the bases, as described above. No new areas of emboli are identified. 2. Faint areas of patchy opacity within the bases. This could be life assurance representative of atelectasis or early infectious/inflammatory etiology. Dictated by: Sophie Floyd M.D. on 07/01/2017 at 9:07 Approved by: Sophie Floyd M.D. on 07/01/2017 at 9:12 . Cardiac Echo Impressions Interpretation Summary The right ventricle is normal in size, thickness and function. Pulmonary artery pressures cannot be estimated because of the lack of a measurable TR jet velocity. There has been no significant change since the previous study. . Assessment & Plan 62-year-old male past medical history significant for non-small cell lymphoma presenting stabbing chest pain of acute onset likely pulmonary embolism as cause , admitted for further evaluation and treatment #. Pulmonary embolism/likely hypercoagulable state - Though initially read as negative, clinical presentation is indeed classic for pulmonary embolism and in addition patient has extensive medical history of thromboembolus likely related in part to hypercoagulable state created by neoplasm - He was started on heparin drip in emergency department, and in spite of initially negative read by radiologist this was continued to further evaluation by jewel cupping machine operator who confirms the presence of new embolism at the site of patient's stabbing chest pain on left side - We will continue heparin drip at this time as per DVT protocol and consider transition to new oral agent, direct acting anticoagulant in place of the warfarin therapy. Pradaxa would be one such agent, as recommended by Pulmonology talent acquisition consultant. Pt notes discussing this with Dr Mccarty in the past but notes there were issues with insurance coverage. IN the setting of know hypercoagulable state related to neoplasm however, there are preferred agents to Warfarin and this will hopefully be reconsidered by insurance company. Plan to discuss further with Dr Mccarty. - Oncology office notified, - In the interim patient will continue provided when necessary medications for pain, supportive oxygen therapy as needed. -Added MS Contin 15 mg by mouth twice a day for smoother pain control #. Non-small cell lung carcinoma with metastasis - Further recommendations per Dr. Mccarty #Tobacco dependence - Pt endorses active use - NicoDerm patch declined at this time, may reconsider at patient request - Benefits of cessation discussed, patient will consider. -An order for nicotine patch has been placed Pain Evaluation: Adequate Pain Control GI Prophylaxis: Not indicated VTE Prophylaxis: Other (Heparin drip) Resuscitation Status: DNR/DNI:Do Not Resuscitate/Intubate Pain Evaluation: Adequate Pain Control GI Prophylaxis: Not indicated VTE Prophylaxis: Other (Heparin drip) Resuscitation Status: DNR/DNI:Do Not Resuscitate/Intubate Time spent 30 minutes Lata Howell MD Jul 03, 2017 14:04
[2017-07-03] MEDS: HYDROcodone-APAP 7.5-325 mg Tablet PO PRN (17:20)
--- NOTE | 2017-07-03 18:12 | CCS NOTE ---
[facility] [address] [place] [address], [address] [address] MEDICAL ONCOLOGY OFFICE NOTE PATIENT: ANGIE KAISER : 1955 MR#: [id number] DATE: 07/01/2017 JOB ID: [id number] DATE: 07/03/2017 I learned about the patient's admission today. I had seen him in the clinic on June 22 and he was doing well at that point. He has recently just a CT scan regarding surveillance of his lung cancer showing no measurable disease in the chest, abdomen, and pelvis, with an only slightly enlarged subcarinal lymph node that is stable over time. He has had several thromboembolic events and is on warfarin and is now admitted with significant dyspnea and shortness of breath and pleuritic chest pain on the left side. He has had a CT angio of the chest upon admission on July 01. This was compared to the previous CT angio of the chest of April, with his last admission where pulmonary embolism was identified. At that time, he had bilateral PEs with fairly large size. The current CT angio shows actually a "improvement" compared to that scan with significantly lower clot burden. However, clinically, he certainly is acting as if he has a new pulmonary event compared to when I saw him on June 22. Therefore, it is possible that his imaging would have been even better and he has now some additional aggravation of clot that has not been captured in the interim, even though the current angio looks better than the April 02. Of note, his Coumadin was checked upon admission, and his INR was only 1.15. He is now heparinized. I saw him at bedside. He is having some cough and increasing shortness of breath and is using oxygen. His legs that do not show any significant change and he remains afebrile. ASSESSMENT AND PLAN: A 62-year-old gentleman with a history of oligometastatic lung cancer treated with chemotherapy with excellent response with no measurable disease in his chest, abdomen, and pelvis. He is being observed without any further treatment systemically over the past year and a half. He did have, however, a small brain metastases that has been treated with gamma knife. It was a single lesion, 1.5 cm in the occipital lobe, treated with Gamma Knife in March of this year. He is readmitted with what appears to be a new pulmonary embolism, although the disease burden is much less than the April CT angio. He has had several admissions now with recurrent thromboembolic events. His INR was nontherapeutic upon admission, with only 1.1. When I saw him just about 10 days ago on June 22, his INR was 4.2. I had him on 7 mg of Coumadin daily and I had asked him to take on Fridays only 5 mg. However, when he was seen in the pro-time clinic, he was told to hold the Coumadin entirely for two days and then go back on 5 mg every day. I think this has led to a severe drop of his INR to 1.1 and an exacerbation of clotting. It has been very challenging to get him on stable anticoagulation and his readmissions are due to this issue. He has had very poor insurance coverage and we have not been able to get him newer oral agent such as Eliquis or Pradaxa or Xtandi due to lack of coverage, as well as lack of coverage for long-term injectable low-molecular weight heparin, such as Lovenox. His pro-time levels have been erratic at times to high and then have led to this recommendation for example, from pro-time clinic that has plummeted his INR. If at all possible, maybe Case Management can re-discuss this with his insurance and they might agree with more modern oral agent such as Eliquis or Pradaxa to allow more steady control.
--- NOTE | 2017-07-03 18:39 | NUR ---
Pain management Discussed pain management with pt and significant other- using long acting medication (MS Contin) in addition to [place] and or Dilaudid. Additionally, educated pt and significant other regarding nerve pain. Pt verbalizes understanding and both voice feeling grateful for better education regarding medications and pain management.
[2017-07-04] VITALS (11 sets, daily range): BP systolic 120–136; BP diastolic 69–75; PULSE 74–84; RESP 16–22; O2SAT 95–99
[2017-07-04] MEDS: HYDROmorphone 1 mg/mL Inj IVPUSH PRN ×3 (00:30→23:15)
[2017-07-04] MEDS: HYDROcodone-APAP 7.5-325 mg Tablet PO PRN ×3 (00:59→13:58)
--- NOTE | 2017-07-04 07:30 | NUR ---
Pain Left chest pain 7-10/10 with cough, MS contin given at HS, PRN [place] givenx2, Dilaudid given for breakthrough painx2, teach pt splint chest when cough. Pain controlled adequate, pt able to sleep well.
[2017-07-04] MEDS: Morphine ER 15 mg (MS Contin) Tablet PO SCH ×2 (08:05→20:35)
[2017-07-04] MEDS: guaiFENesin DM 200-20 mg/10 mL Syrup PO PRN ×2 (08:18→19:33)
--- NOTE | 2017-07-04 08:22 | PCM.PNMED ---
Subjective Date of Service Jul 04, 2017 Subjective Patient has been coughing bringing up some blood streaky sputum. Continues to have pain with coughing. Mostly left-sided. Exam Vital Signs Vital Sign - Last Date Time Temp Pulse Resp B/P Pulse Ox O2 Delivery O2 Flow Rate FiO2 07/04/17 06:08 84 07/04/17 04:28 36.8 20 128/75 97 Nasal Cannula 3.00 Intake and Output 07/03/17 07/03/17 07/04/17 Cumulative From/Thru 15:00 23:00 07:00 07/01/17 03:25 - 07/04/17 06:05 Intake Total 800 ml 1217 ml 7263 ml Output Total 925 ml 800 ml 5525 ml Balance -125 ml 417 ml 1738 ml Intake Oral 800 ml 300 ml 3836 ml IV Total 917 ml 3427 ml Output Urine Total 925 ml 800 ml 5525 ml # Bowel Movements 0 0 Exam Constitutional: Middle-aged male in mild to moderate pain distress Head: Normocephalic atraumatic Chest: Some scattered wheezes Cor: Regular rate and rhythm S1-S2 without murmur Abdomen: Soft nontender bowel sounds present Extremities: No pedal edema Skin: No rashes Neuro: Alert and oriented 3, motor strength is intact bilaterally Lab and Diagnostics Laboratory Tests 72 Hours Test 07/01/17 08:37 07/01/17 11:35 07/01/17 17:33 07/01/17 23:20 Activated Partial Thromboplast Time 94.4sec (22.8-33.0) 60.1sec (22.8-33.0) 46.8sec (22.8-33.0) 90.7sec (22.8-33.0) Test 07/02/17 05:30 07/02/17 11:24 07/02/17 17:41 07/03/17 00:15 White Blood Count 9.9th/mm3 (3.8-10.1) Red Blood Count 4.23mil/mm3 (4.40-5.80) Hemoglobin 13.5g/dL (13.8-17.2) Hematocrit 40.8% (41.0-50.0) Mean Corpuscular Volume 96.5fL (81-100) Mean Corpuscular Hemoglobin 31.9pg (27.0-35.0) Mean Corpuscular Hemoglobin Concent 33.1% (32.0-37.0) Red Cell Distribution Width 14.8% (12.3-15.4) Platelet Count 213bil/L (150-400) Neutrophils (%) (Auto) 75.0% (40-74) Lymphocytes (%) (Auto) 11.2% (14-46) Monocytes (%) (Auto) 10.7% (4-12) Eosinophils (%) (Auto) 2.6% (0-5) Basophils (%) (Auto) 0.2% (0-3) Activated Partial Thromboplast Time 75.2sec (22.8-33.0) 59.1sec (22.8-33.0) 47.6sec (22.8-33.0) 83.3sec (22.8-33.0) Sodium Level 134mEq/L (134-144) Potassium Level 4.4mEq/L (3.5-5.2) Chloride Level 99mEq/L (97-108) Carbon Dioxide Level 19mmol/L (18-29) Blood Urea Nitrogen 12mg/dL (8-27) Creatinine 0.60mg/dL (0.76-1.27) Estimat Glomerular Filtration Rate 146mL/min (>59) Glucose Level 98mg/dL (60-99) Calcium Level 9.2mg/dL (8.5-10.1) Total Bilirubin 0.5mg/dL (0.0-1.2) Aspartate Amino Transf (AST/SGOT) 13U/L (0-50) Alanine Aminotransferase (ALT/SGPT) 14U/L (0-44) Alkaline Phosphatase 43U/L (25-160) Total Protein 6.7g/dL (6.4-8.4) Albumin 3.7g/dL (3.4-5.0) Test 07/03/17 05:58 07/04/17 05:05 White Blood Count 9.0th/mm3 (3.8-10.1) Red Blood Count 4.04mil/mm3 (4.40-5.80) Hemoglobin 12.8g/dL (13.8-17.2) Hematocrit 38.9% (41.0-50.0) Mean Corpuscular Volume 96.3fL (81-100) Mean Corpuscular Hemoglobin 31.7pg (27.0-35.0) Mean Corpuscular Hemoglobin Concent 32.9% (32.0-37.0) Red Cell Distribution Width 14.5% (12.3-15.4) Platelet Count 213bil/L (150-400) Neutrophils (%) (Auto) 71.0% (40-74) Lymphocytes (%) (Auto) 14.3% (14-46) Monocytes (%) (Auto) 11.2% (4-12) Eosinophils (%) (Auto) 3.1% (0-5) Basophils (%) (Auto) 0.2% (0-3) Activated Partial Thromboplast Time 77.7sec (22.8-33.0) 75.8sec (22.8-33.0) Sodium Level 136mEq/L (134-144) Potassium Level 4.7mEq/L (3.5-5.2) Chloride Level 101mEq/L (97-108) Carbon Dioxide Level 21mmol/L (18-29) Blood Urea Nitrogen 14mg/dL (8-27) Creatinine 0.60mg/dL (0.76-1.27) Estimat Glomerular Filtration Rate 146mL/min (>59) Glucose Level 101mg/dL (60-99) Calcium Level 9.0mg/dL (8.5-10.1) Result Diagram: 07/03/17 0558 07/03/17 0558 X-Rays, CTs and MRIs CT ANGIO CHEST PULMONARY EMBOLISM IMPRESSION: 1. Improved appearance of emboli compared to 04/03/17, with residual thrombus identified predominately within the bases, as described above. No new areas of emboli are identified. 2. Faint areas of patchy opacity within the bases. This could be medical customer service representative of atelectasis or early infectious/inflammatory etiology. Dictated by: Sophie Floyd M.D. on 07/01/2017 at 9:07 Approved by: Sophie Floyd M.D. on 07/01/2017 at 9:12 . Cardiac Echo Impressions Interpretation Summary The right ventricle is normal in size, thickness and function. Pulmonary artery pressures cannot be estimated because of the lack of a measurable TR jet velocity. There has been no significant change since the previous study. . Assessment & Plan 62-year-old male past medical history significant for non-small cell lymphoma presenting stabbing chest pain of acute onset likely pulmonary embolism as cause , admitted for further evaluation and treatment #. Pulmonary embolism/likely hypercoagulable state - Though initially read as negative, clinical presentation is indeed classic for pulmonary embolism and in addition patient has extensive medical history of thromboembolus likely related in part to hypercoagulable state created by neoplasm - He was started on heparin drip in emergency department, and in spite of initially negative read by radiologist this was continued to further evaluation by insulator apprentice who confirms the presence of new embolism at the site of patient's stabbing chest pain on left side - We will continue heparin drip at this time as per DVT protocol and consider transition to new oral agent, direct acting anticoagulant in place of the warfarin therapy. Pradaxa would be one such agent, as recommended by Pulmonology garden consultant. Pt notes discussing this with Dr Mccarty in the past but notes there were issues with insurance coverage. IN the setting of know hypercoagulable state related to neoplasm however, there are preferred agents to Warfarin and this will hopefully be reconsidered by insurance company. Plan to discuss further with Dr Mccarty. - Oncology office notified, - In the interim patient will continue provided when necessary medications for pain, supportive oxygen therapy as needed. -Added MS Contin 15 mg by mouth twice a day for smoother pain control -Appreciate Dr. Mccarty's note from July 03. #. Non-small cell lung carcinoma with metastasis - Further recommendations per Dr. Mccarty #Tobacco dependence - Pt endorses active use - NicoDerm patch declined at this time, may reconsider at patient request - Benefits of cessation discussed, patient will consider. -An order for nicotine patch has been placed Pain Evaluation: Adequate Pain Control GI Prophylaxis: Not indicated VTE Prophylaxis: Other (Heparin drip) Resuscitation Status: DNR/DNI:Do Not Resuscitate/Intubate GI Prophylaxis: Not indicated VTE Prophylaxis: Other (Heparin drip) Resuscitation Status: DNR/DNI:Do Not Resuscitate/Intubate Time spent 25 minutes Lata Howell MD Jul 04, 2017 08:22
[2017-07-04] MEDS: Heparin 25K Unit/500mL 0.45 NS 25,000 UNIT in IV Premix 1 EACH IV SCH ×2 (09:38→23:18)
[2017-07-04] MEDS: Albuterol-Ipratropium 3 mL Inhalation Solution NEB SCH ×3 (11:28→20:14)
--- NOTE | 2017-07-04 17:12 | NUR ---
Social Work: Readiness for Discharge/Multidisciplinary Rounds D: EMR reviewed. Pt is on day 3 of hospitalization. Pt discussed in multidisciplinary rounds and is not medically stable to discharge home today - anticipate 1 more day. requested SW determine what anticoagulants other than Coumadin pt's insurance will cover. SW requested MD to write rx for all anticoagulants that pt could be on other than Coumadin. agreeable. SW to fax medications to pt's preferred pharmacy to determine coverage. SW requested MD order, agreeable. SW explained that 30-day free sample for Eloquis may be an option and pt can follow-up with PCP for local company intermodal truck driver coverage for medication. SW also noted that because pt has MCR, pt may not be eligible per sample qualifications. SW to fax rx to pt's preferred pharmacy and other pharmacies to determine coverage. A: Pt who is independent at baseline P: SW to fax rx to pt's preferred pharmacy and other pharmacies to determine coverage. SW to update MD on coverage. FELIPE Mckay
--- NOTE | 2017-07-04 17:48 | NUR ---
Uneventful day Patient alert and oriented X3. Patient continues to be administered 21units/kg/hr of Heparin drip for Bilateral PE. Patient Did have complaints of 4/10 chest pain, but did not want any pain medication for pain. Patient was coughing pink tinged sputum persistently this morning and MD was notified. Cough syrup was ordered and administered; was effective. Bed locked and call light within reach.
[2017-07-05] VITALS (7 sets, daily range): BP systolic 107–126; BP diastolic 70–75; PULSE 69–80; RESP 16–20; O2SAT 93–98
[2017-07-05] MEDS: guaiFENesin DM 200-20 mg/10 mL Syrup PO PRN ×2 (05:12→14:19)
[2017-07-05] MEDS: HYDROmorphone 1 mg/mL Inj IVPUSH PRN (05:13)
[2017-07-05 05:16] LABS: BASOPHILS % (AUTO) 0.3 % (0-3); EOSINOPHILS % (AUTO) 3.3 % (0-5); MONOCYTES % (AUTO) 11.2 % (4-12); Mean Corpuscular Hemoglobin 31.4 pg (27.0-35.0); Mean Corpuscular Volume 96.1 fL (81-100); Platelet Count 257 bil/L (150-400)
[2017-07-05] MEDS: Albuterol-Ipratropium 3 mL Inhalation Solution NEB SCH (07:36)
--- NOTE | 2017-07-05 07:39 | NUR ---
RA trial done after breathing treatment.
[2017-07-05] MEDS: HYDROcodone-APAP 7.5-325 mg Tablet PO PRN ×2 (07:49→14:19)
[2017-07-05] MEDS: Morphine ER 15 mg (MS Contin) Tablet PO SCH (07:49)
--- NOTE | 2017-07-05 12:40 | PCM.PNMED ---
Subjective Date of Service Jul 05, 2017 Subjective Patient notes his breathing is low but more comfortable today. He did have a coughing episode about 5 AM today. Chest pain is improved ecchymoses coughing. Exam Vital Signs Vital Sign - Last Date Time Temp Pulse Resp B/P Pulse Ox O2 Delivery O2 Flow Rate FiO2 07/05/17 12:19 72 16 94 Room Air 07/05/17 09:48 37.1 125/70 07/05/17 07:36 1.00 Intake and Output 07/04/17 07/04/17 07/05/17 Cumulative From/Thru 15:00 23:00 07:00 07/01/17 03:25 - 07/05/17 06:23 Intake Total 754 ml 1200 ml 9217 ml Output Total 400 ml 1250 ml 7175 ml Balance 354 ml -50 ml 2042 ml Intake Oral 300 ml 1200 ml 5336 ml IV Total 454 ml 3881 ml Output Urine Total 400 ml 1250 ml 7175 ml Emesis 0 ml 0 ml 0 ml # Voids 1 1 # Bowel Movements 0 Exam Constitutional: Middle-aged male in no acute distress Head: Normocephalic atraumatic Chest: Scattered rhonchi noted Cor: Regular rate and rhythm S1-S2 Abdomen: Soft nontender bowel sounds present Extremities: No pedal edema Neuro: Alert and oriented 3, motor strength is intact bilaterally IVs and Medications Medications Reviewed: Medications were reviewed in detail Lab and Diagnostics Laboratory Tests 72 Hours Test 07/02/17 17:41 07/03/17 00:15 07/03/17 05:58 07/04/17 05:05 Activated Partial Thromboplast Time 47.6sec (22.8-33.0) 83.3sec (22.8-33.0) 77.7sec (22.8-33.0) 75.8sec (22.8-33.0) White Blood Count 9.0th/mm3 (3.8-10.1) Red Blood Count 4.04mil/mm3 (4.40-5.80) Hemoglobin 12.8g/dL (13.8-17.2) Hematocrit 38.9% (41.0-50.0) Mean Corpuscular Volume 96.3fL (81-100) Mean Corpuscular Hemoglobin 31.7pg (27.0-35.0) Mean Corpuscular Hemoglobin Concent 32.9% (32.0-37.0) Red Cell Distribution Width 14.5% (12.3-15.4) Platelet Count 213bil/L (150-400) Neutrophils (%) (Auto) 71.0% (40-74) Lymphocytes (%) (Auto) 14.3% (14-46) Monocytes (%) (Auto) 11.2% (4-12) Eosinophils (%) (Auto) 3.1% (0-5) Basophils (%) (Auto) 0.2% (0-3) Sodium Level 136mEq/L (134-144) Potassium Level 4.7mEq/L (3.5-5.2) Chloride Level 101mEq/L (97-108) Carbon Dioxide Level 21mmol/L (18-29) Blood Urea Nitrogen 14mg/dL (8-27) Creatinine 0.60mg/dL (0.76-1.27) Estimat Glomerular Filtration Rate 146mL/min (>59) Glucose Level 101mg/dL (60-99) Calcium Level 9.0mg/dL (8.5-10.1) Test 07/05/17 05:00 White Blood Count 6.6th/mm3 (3.8-10.1) Red Blood Count 3.88mil/mm3 (4.40-5.80) Hemoglobin 12.2g/dL (13.8-17.2) Hematocrit 37.3% (41.0-50.0) Mean Corpuscular Volume 96.1fL (81-100) Mean Corpuscular Hemoglobin 31.4pg (27.0-35.0) Mean Corpuscular Hemoglobin Concent 32.7% (32.0-37.0) Red Cell Distribution Width 14.7% (12.3-15.4) Platelet Count 257bil/L (150-400) Neutrophils (%) (Auto) 61.0% (40-74) Lymphocytes (%) (Auto) 23.9% (14-46) Monocytes (%) (Auto) 11.2% (4-12) Eosinophils (%) (Auto) 3.3% (0-5) Basophils (%) (Auto) 0.3% (0-3) Activated Partial Thromboplast Time 61.9sec (22.8-33.0) Sodium Level 140mEq/L (134-144) Potassium Level 4.0mEq/L (3.5-5.2) Chloride Level 103mEq/L (97-108) Carbon Dioxide Level 22mmol/L (18-29) Blood Urea Nitrogen 13mg/dL (8-27) Creatinine 0.58mg/dL (0.76-1.27) Estimat Glomerular Filtration Rate 152mL/min (>59) Glucose Level 107mg/dL (60-99) Calcium Level 9.3mg/dL (8.5-10.1) Total Bilirubin 0.2mg/dL (0.0-1.2) Aspartate Amino Transf (AST/SGOT) 12U/L (0-50) Alanine Aminotransferase (ALT/SGPT) 12U/L (0-44) Alkaline Phosphatase 40U/L (25-160) Total Protein 7.1g/dL (6.4-8.4) Albumin 3.3g/dL (3.4-5.0) Result Diagram: 07/05/17 0500 07/05/17 0500 X-Rays, CTs and MRIs CT ANGIO CHEST PULMONARY EMBOLISM IMPRESSION: 1. Improved appearance of emboli compared to 04/03/17, with residual thrombus identified predominately within the bases, as described above. No new areas of emboli are identified. 2. Faint areas of patchy opacity within the bases. This could be wire rope sales representative of atelectasis or early infectious/inflammatory etiology. Dictated by: Sophie Floyd M.D. on 07/01/2017 at 9:07 Approved by: Sophie Floyd M.D. on 07/01/2017 at 9:12 . Cardiac Echo Impressions Interpretation Summary The right ventricle is normal in size, thickness and function. Pulmonary artery pressures cannot be estimated because of the lack of a measurable TR jet velocity. There has been no significant change since the previous study. . Assessment & Plan 62-year-old male past medical history significant for non-small cell lymphoma presenting stabbing chest pain of acute onset likely pulmonary embolism as cause , admitted for further evaluation and treatment #. Pulmonary embolism/likely hypercoagulable state - Though initially read as negative, clinical presentation is indeed classic for pulmonary embolism and in addition patient has extensive medical history of thromboembolus likely related in part to hypercoagulable state created by neoplasm - He was started on heparin drip in emergency department, and in spite of initially negative read by radiologist this was continued to further evaluation by instrument shop supervisor who confirms the presence of new embolism at the site of patient's stabbing chest pain on left side - We will continue heparin drip at this time as per DVT protocol and consider transition to new oral agent, direct acting anticoagulant in place of the warfarin therapy. Pradaxa would be one such agent, as recommended by Pulmonology software security consultant. Pt notes discussing this with Dr Mccarty in the past but notes there were issues with insurance coverage. IN the setting of know hypercoagulable state related to neoplasm however, there are preferred agents to Warfarin and this will hopefully be reconsidered by insurance company. Plan to discuss further with Dr Mccarty. - Oncology office notified, - In the interim patient will continue provided when necessary medications for pain, supportive oxygen therapy as needed. -Added MS Contin 15 mg by mouth twice a day for smoother pain control -Appreciate Dr. Mccarty's note from July 03. -Tri-Norinyl with case management to get an alternative anticoagulant covered since he has failed Coumadin therapy with his INR constantly bouncing up and down. #. Non-small cell lung carcinoma with metastasis - Further recommendations per Dr. Mccarty #Tobacco dependence - Pt endorses active use - NicoDerm patch declined at this time, may reconsider at patient request - Benefits of cessation discussed, patient will consider. -An order for nicotine patch has been placed Pain Evaluation: Adequate Pain Control GI Prophylaxis: Not indicated VTE Prophylaxis: Other (Heparin drip) Resuscitation Status: DNR/DNI:Do Not Resuscitate/Intubate GI Prophylaxis: Not indicated VTE Prophylaxis: Other (Heparin drip) Resuscitation Status: DNR/DNI:Do Not Resuscitate/Intubate Time spent 30 minutes Lata Howell MD Jul 05, 2017 12:40
[2017-07-05] MEDS: Heparin 25K Unit/500mL 0.45 NS 25,000 UNIT in IV Premix 1 EACH IV SCH (15:05)
--- NOTE | 2017-07-05 15:44 | PCM.DIMED ---
Discharge Instructions Date of Service Jul 05, 2017 Dates of Hospitalization Jul 01, 2017 at 07:32 Discharge Diagnosis Discharge Diagnosis Recurrent pulmonary emboli Diet Discharge Diet: Heart Healthy Activity Discharge Activity: Other (as tolerated and no risky behaviors such as climbing on ladders due to your anticoagulation therapy) Call your provider Call your provider for: Fever or Chills, Shortness of breath, Bleeding, Chest pain, Vomitting, Excessive diarrhea, Weakness (unilateral) Patient Instructions Follow-up Provider: Nitza Diamond DO Follow-up with PCP in: Other (in 4-5 days sooner if problems) Provider: Blair Vargas MD Follow-up in: 1 week Lata Howell MD Jul 05, 2017 15:44
[2017-07-05] MEDS ORDERED: NIC7 TOPICAL (15:52)
[2017-07-05] MEDS ORDERED: MORP-32 PO (15:52)
[2017-07-05] MEDS ORDERED: Guaifenesin/D-Methorphan Hb PO (15:52)
[2017-07-05] MEDS ORDERED: ALBU18HF INH (15:53)
[2017-07-05] MEDS ORDERED: Albuterol 2.5 mg/3 mL Inhalation Solution NEB PRN (16:00)
--- NOTE | 2017-07-05 16:05 | NUR ---
Social Work: Discharge Data: EMR reviewed. Patient is on day 4 of hospitalization for bilateral pulmonary emboli stage 3 lung cancer per H&P. Patient was discussed in morning rounds and has been deemed medically stable for discharge today. IWONA faxed prescriptions to [facility] to obtain cost information. IWONA called and spoke with pharmacist and was informed that all 4 prescriptions required prior authorization from MD. IWONA paged MD and updated her on pharmacy's request. IWONA provided MD with phone number to [facility]. MD has adjusted medications for discharge. Transportation will be provided by family member. Patient has no additional needs at this time. Assessment: Patient will discharge home. Plan: Patient will discharge home today. Transportation will be provided by family member. Patient has no additional needs at this time. FELIPE Santizo
--- NOTE | 2017-07-05 16:09 | PCM.PNMED ---
Subjective Date of Service Jul 05, 2017 Subjective Pain improved and no SOB. SpO2 94% on RA Has coupon for free 30 day supply of apixaban and is being discharged this afternoon. Exam Vital Signs Vital Sign - Last Date Time Temp Pulse Resp B/P Pulse Ox O2 Delivery O2 Flow Rate FiO2 07/05/17 12:19 72 16 94 Room Air 07/05/17 09:48 37.1 125/70 07/05/17 07:36 1.00 Intake and Output 07/04/17 07/04/17 07/05/17 Cumulative From/Thru 15:00 23:00 07:00 07/01/17 03:25 - 07/05/17 06:23 Intake Total 754 ml 1200 ml 9217 ml Output Total 400 ml 1250 ml 7175 ml Balance 354 ml -50 ml 2042 ml Intake Oral 300 ml 1200 ml 5336 ml IV Total 454 ml 3881 ml Output Urine Total 400 ml 1250 ml 7175 ml Emesis 0 ml 0 ml 0 ml # Voids 1 1 # Bowel Movements 0 Lab and Diagnostics Result Diagram: 07/05/17 0500 07/05/17 0500 X-Rays, CTs and MRIs CT ANGIO CHEST PULMONARY EMBOLISM IMPRESSION: 1. Improved appearance of emboli compared to 04/03/17, with residual thrombus identified predominately within the bases, as described above. No new areas of emboli are identified. 2. Faint areas of patchy opacity within the bases. This could be franchise sales representative of atelectasis or early infectious/inflammatory etiology. Dictated by: Sophie Floyd M.D. on 07/01/2017 at 9:07 Approved by: Sophie Floyd M.D. on 07/01/2017 at 9:12 . Cardiac Echo Impressions Interpretation Summary The right ventricle is normal in size, thickness and function. Pulmonary artery pressures cannot be estimated because of the lack of a measurable TR jet velocity. There has been no significant change since the previous study. . Assessment & Plan 62 yo with h/o NSCLC with cerebral mets s/p Cyber[employer] He was admitted with recurrent Lt sided PE after failing coumadin. A direct acting oral anticoagulant would be ideal in this patient. Pulmonary consult will sign off. Please reconsult as needed GI Prophylaxis: Not indicated VTE Prophylaxis: Other (Heparin drip) Resuscitation Status: DNR/DNI:Do Not Resuscitate/Intubate Tank Carranza MD Jul 05, 2017 16:09
--- NOTE | 2017-07-05 16:09 | PCM.DC.MED ---
Discharge Summary Date of Service Jul 05, 2017 Dates of Hospitalization Date of Hospital Admission Jul 01, 2017 at 07:32 Date of Discharge: Jul 05, 2017 Providers: Admitting Physician: Sravan Drake DO Primary Care Physician: Nitza Diamond DO Attending Physician: Lata Howell MD Diagnosis at Time of Discharge Diagnosis at Time of Discharge Recurrent pulmonary emboli Consultations Oncology Procedures XRay, CTs & MRIs CT ANGIO CHEST PULMONARY EMBOLISM IMPRESSION: 1. Improved appearance of emboli compared to 04/03/17, with residual thrombus identified predominately within the bases, as described above. No new areas of emboli are identified. 2. Faint areas of patchy opacity within the bases. This could be admissions representative of atelectasis or early infectious/inflammatory etiology. Dictated by: Sophie Floyd M.D. on 07/01/2017 at 9:07 Approved by: Sophie Floyd M.D. on 07/01/2017 at 9:12 . Cardiac Echo Impression Interpretation Summary The right ventricle is normal in size, thickness and function. Pulmonary artery pressures cannot be estimated because of the lack of a measurable TR jet velocity. There has been no significant change since the previous study. . 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 Patient denies any activity at the time of onset, but he has had a pulmonary embolus once in the past of annular side and states this was the identical sensation. Gamma procedure was done a couple of months ago for which he came off his Coumadin therapy only a couple of days, since then been restarted he was postoperative repeat MRI study today in fact to evaluate the efficacy of that procedure. During the time my evaluation he is continuing to experience intermittent chest pain worsening with deep breaths. Pain is lateral / posterior and pleuritic in nature. He denies any other chest pains or palpitations. Emergency room evaluation, consisted of CT angiogram initially read as positive by emergency department physician but disputed by radiologist, is nonetheless started on heparin drip prior to arrival to floor. He was additionally found to be subtherapeutic, with an INR of 1.15 Hospital Course 62-year-old male past medical history significant for non-small cell lymphoma presenting stabbing chest pain of acute onset likely pulmonary embolism as cause , admitted for further evaluation and treatment #. Pulmonary embolism/likely hypercoagulable state - Though initially read as negative, clinical presentation is indeed classic for pulmonary embolism and in addition patient has extensive medical history of thromboembolus likely related in part to hypercoagulable state created by neoplasm - He was started on heparin drip in emergency department, and in spite of initially negative read by radiologist this was continued to further evaluation by forestry aid technician who confirms the presence of new embolism at the site of patient's stabbing chest pain on left side - We will continue heparin drip at this time as per DVT protocol and consider transition to new oral agent, direct acting anticoagulant in place of the warfarin therapy. Pradaxa would be one such agent, as recommended by Pulmonology storage consultant. Pt notes discussing this with Dr Mccarty in the past but notes there were issues with insurance coverage. IN the setting of know hypercoagulable state related to neoplasm however, there are preferred agents to Warfarin and this will hopefully be reconsidered by insurance company. Plan to discuss further with Dr Mccarty. - Oncology office notified, - In the interim patient will continue provided when necessary medications for pain, supportive oxygen therapy as needed. -Added MS Contin 15 mg by mouth twice a day for smoother pain control -Appreciate Dr. Mccarty's note from July 03. - case management to get an alternative anticoagulant covered since he has failed Coumadin therapy with his INR constantly bouncing up and down. - we were not successful with getting approval for other novel oral anticoagulants nor subcutaneous Lovenox yet. These prescriptions have been submitted and the pharmacy will fax me a sheet from [employer] to complete which most likely will not happen in the next 2 days. Hence patient is given a coupon for apixaban to take 10 mg by mouth twice a day 7 days then 5 mg by mouth twice a day. With this coupon it is one-month supply free. #. Non-small cell lung carcinoma with metastasis - Further recommendations per Dr. Mccarty #Tobacco dependence - Pt endorses active use - Benefits of cessation discussed, -An order for nicotine patch has been placed Pain Evaluation: Adequate Pain Control GI Prophylaxis: Not indicated VTE Prophylaxis: Other (Heparin drip) Resuscitation Status: DNR/DNI:Do Not Resuscitate/Intubate Exam Vital Signs (Last) Date Time Temp Pulse Resp B/P Pulse Ox O2 Delivery O2 Flow Rate FiO2 07/05/17 12:19 72 16 94 Room Air 07/05/17 09:48 37.1 125/70 07/05/17 07:36 1.00 Exam See progress note from today Test 07/01/17 03:41 07/05/17 05:00 Prothrombin Time 12.3sec (8.1-12.5) Prothromb Time International Ratio 1.15ratio Magnesium Level 2.1mg/dL (1.6-2.6) Troponin T 0.010ug/L (0.0-0.011) Procalcitonin 0.05ng/mL (0.00-0.08) White Blood Count 6.6th/mm3 (3.8-10.1) Red Blood Count 3.88mil/mm3 (4.40-5.80) Hemoglobin 12.2g/dL (13.8-17.2) Hematocrit 37.3% (41.0-50.0) Mean Corpuscular Volume 96.1fL (81-100) Mean Corpuscular Hemoglobin 31.4pg (27.0-35.0) Mean Corpuscular Hemoglobin Concent 32.7% (32.0-37.0) Red Cell Distribution Width 14.7% (12.3-15.4) Platelet Count 257bil/L (150-400) Neutrophils (%) (Auto) 61.0% (40-74) Lymphocytes (%) (Auto) 23.9% (14-46) Monocytes (%) (Auto) 11.2% (4-12) Eosinophils (%) (Auto) 3.3% (0-5) Basophils (%) (Auto) 0.3% (0-3) Activated Partial Thromboplast Time 61.9sec (22.8-33.0) Sodium Level 140mEq/L (134-144) Potassium Level 4.0mEq/L (3.5-5.2) Chloride Level 103mEq/L (97-108) Carbon Dioxide Level 22mmol/L (18-29) Blood Urea Nitrogen 13mg/dL (8-27) Creatinine 0.58mg/dL (0.76-1.27) Estimat Glomerular Filtration Rate 152mL/min (>59) Glucose Level 107mg/dL (60-99) Calcium Level 9.3mg/dL (8.5-10.1) Total Bilirubin 0.2mg/dL (0.0-1.2) Aspartate Amino Transf (AST/SGOT) 12U/L (0-50) Alanine Aminotransferase (ALT/SGPT) 12U/L (0-44) Alkaline Phosphatase 40U/L (25-160) Total Protein 7.1g/dL (6.4-8.4) Albumin 3.3g/dL (3.4-5.0) Discharge Medications Discharge Medications Morphine Sulfate ER (Morphine Sulfate ER) 15 Mg Tablet 15 MG PO BID Prescribed by: LATA HOWELL MD Multivitamin (Multi Vitamin Daily) 1 Each Tablet 1 EACH PO DAILY (Reported) Nicotine 7 mg/24 hr Patch (Nicotine 7 mg/24 hr Patch) 1 Each Patch.td24 1 PATCH TOPICAL DAILY Prescribed by: LATA HOWELL MD As needed ([Guaifenesin/D-Methorphan Hb]) 10 ML SYRUP 10 ML PO Q6H PRN PRN For Cough Prescribed by: LATA HOWELL MD Albuterol Sulfate (Ventolin HFA Inhaler) 200 Puff/18 Gm Inhaler 1 PUFF INH Q4 PRN PRN For Wheezing Prescribed by: LATA HOWELL MD Docusate Sodium (Colace) 100 Mg Capsule 200 MG PO BID PRN PRN For Constipation ( Reported) oxyCODONE-Acetaminophen 10-325 mg (oxyCODONE-Acetaminophen 10-325 mg) 1 Each Tablet 1 TAB PO Q4-6Hrs PRN PRN For Pain (Reported) Followup Plan Disposition: Home Discharge Diet: Heart Healthy Discharge Activity: Other (as tolerated and no risky behaviors such as climbing on ladders due to your anticoagulation therapy) Follow-up Provider: Nitza Diamond DO Follow-up with PCP in: Other (in 4-5 days sooner if problems) Provider: LulBlair Gomez MD Follow-up in: 1 week Time spent 60 minutes copies to: Blair Vargas MD; Nitza Diamond Cheryl A MD Jul 05, 2017 16:09
--- NOTE | 2017-07-05 16:39 | NUR ---
Discharge Patient given discharge orders. Patient given hard copies of prescription medications. Patient given medication list with written times of next dose due. Patient given free coupon for Eliquis. Patient given follow up instructions. Patient given informational packet. Patient assisted to main entrance by staff to meet transportation at door.
== END 2017-07-05 16:44 | disposition home or self-care (01) | DRG 176 ==
LOC: SED 03:22 → MPC 07:32
PROVIDERS: ADMIT Family Medicine; ATTEND Specialist
DX: I26.99 Other pulmonary embolism without acute cor pulmonale (principal); C79.31 Secondary malignant neoplasm of brain; D68.69 Other thrombophilia; C34.91 Malignant neoplasm of unspecified part of right bronchus or lung; I82.5Z2 Chronic embolism and thrombosis of unspecified deep veins of left distal lower extremity; F17.200 Nicotine dependence, unspecified, uncomplicated; M16.11 Unilateral primary osteoarthritis, right hip; I25.10 Atherosclerotic heart disease of native coronary artery without angina pectoris; Z66 Do not resuscitate; Z79.01 Long term (current) use of anticoagulants

== ENCOUNTER 2017-07-12 16:53 | Emergency (ER) | payer OTHER ==
[~2017-07-12] VITALS: Ht 180.3 cm; Wt 88.6 kg
[~2017-07-12 16:53] MED LIST changes: +ALBU18HF INH; -CYCL10TA9 PO; +Guaifenesin/D-Methorphan Hb PO; +MORP-32 PO; +NICO-206 TOPICAL; +OXYC-466 PO; -OXYC10TA8 PO; -WARF5TAB7 PO
[2017-07-12 17:12] VITALS: BP 165/93; PULSE 89; RESP 20; O2SAT 97
[2017-07-12] MEDS ORDERED: 0.9% Sodium Chloride 1,000 ML IV SCH (17:30)
[2017-07-12] MEDS ORDERED: Ondansetron 2 mg/mL 2 mL Inj IVPUSH PRN (17:30)
[2017-07-12] MEDS: HYDROmorphone 1 mg/mL Inj IVPUSH PRN ×3 (17:53→18:57)
[2017-07-12 18:14] LABS: BASOPHILS % (AUTO) 0.5 % (0-3); EOSINOPHILS % (AUTO) 3.9 % (0-5); MONOCYTES % (AUTO) 9.7 % (4-12); Mean Corpuscular Hemoglobin 31.7 pg (27.0-35.0); Mean Corpuscular Volume 94.3 fL (81-100); NEUTROPHILS % (AUTO) 71.2 % (40-74); Platelet Count 261 bil/L (150-400)
--- NOTE | 2017-07-12 18:43 | ED.REPORT ---
HPI-General Illness Date of Service Jul 12, 2017 ED Provider: Tank Call MD Pt is a 62 y/o male with a history of DVT and stage 4 lung cancer on Eliquis who presents to the ED c/o increased left foot pain that radiates up his leg onset 3 days ago. He reports that his pain is progressively worsening with a severity of 10/10 at its worst that was not relieved with Percocet or morphine medications. He states that his pain is a constant "burning" sensation and that he couldn't bare any weight on his leg today. Pt has had similar symptoms in the past when he had a previous blood clot in his leg. Additional symptoms include discoloration in leg, left leg cold to touch, numbness/tingling in left leg, and cramping in left leg. He denies fever, nausea, vomiting, diarrhea, constipation, vision changes, headache, chest pain, SOB, abdominal pain, rash, chills, hematochezia, and hematuria. Nursing Notes Stated Complaint: DEEP VEIN THROMBOSIS Chief Complaint: General Complaint Nursing Notes Reviewed: Yes Allergies: Coded Allergies: No Known Allergies (Verified Allergy, Unknown, 07/01/17) Scheduled Morphine Sulfate ER (Morphine Sulfate ER) 15 Mg Tablet 15 MG PO BID Multivitamin (Multi Vitamin Daily) 1 Each Tablet 1 EACH PO DAILY Nicotine 7 mg/24 hr Patch (Nicotine 7 mg/24 hr Patch) 1 Each Patch.td24 1 PATCH TOPICAL DAILY Scheduled PRN ([Guaifenesin/D-Methorphan Hb]) 10 ML SYRUP 10 ML PO Q6H PRN PRN For Cough Albuterol Sulfate (Ventolin HFA Inhaler) 200 Puff/18 Gm Inhaler 1 PUFF INH Q4 PRN PRN For Wheezing Docusate Sodium (Colace) 100 Mg Capsule 200 MG PO BID PRN PRN For Constipation oxyCODONE-Acetaminophen 10-325 mg (oxyCODONE-Acetaminophen 10-325 mg) 1 Each Tablet 1 TAB PO Q4-6Hrs PRN PRN For Pain General Time Seen by MD: 18:41 Chief Complaint Other (lower leg pain) Hx Obtained From: Patient Arrived By: Walk-in Sudden in Onset?: No Onset Occurred: 3 days ago Symptom Duration: Constant Location: : Foot left Quality: Burning, Painful Radiation: : Leg left Severity: Current: Pain level 5 out of 10 Severity: Maximum: Pain level 10 out of 10 Associated with: Reports: Inability to bear weight, Pain on walking Additional Notes: Discoloration in leg, left leg cold to touch, numbness/tingling in left leg, and cramping in left leg Pertinent Negative: Pt denies other symptoms Pertinent Negative: Relieved by nothing Recent Healthcare: Recent doctor visit, Recent hospitalization Similar Sx Previous: Yes Past Medical History Past Medical History Notes: Oncology: Dr. 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, mets to brain Severe osteoarthritis of the right hip Mild emphysema CAD LLE DVT - as of 04/03/17 Diverticulitis Arthritis Anxiety Depression Past Surgical History Gastric ulcer repair Chemotherapy and Gamma knife procedure Smoking History Current Every Day Smoker Social History Alcohol Use: In recovery Other Social History: Good social support Ambulatory Status Independent Review of Systems Discoloration in left lower leg Left leg cold to touch Cramping in left leg Full Review of Systems Constitutional: Denies: Chills, Fever Eyes: Denies: Blurred bilateral Respiratory: Denies: Shortness of breath Cardiovascular: Denies: Chest pain GI: Denies: Abdominal pain, Constipation, Diarrhea, Hematochezia, Nausea, Vomiting Male: Denies Hematuria Musculoskeletal: Reports: Extremity pain (in left lower leg ), Extremity swelling (in left lower leg ) Skin: Denies Rash Neurologic: Denies: Headache, Vision change Psychiatric: Denies: Change mental status Complete sys rev & neg: except as marked. Physical Exam Nursing note and vitals reviewed. Constitutional: Well-developed, well-nourished. Not diaphoretic. Head: Normocephalic and atraumatic. Mouth/Throat: Oropharynx is clear and moist. No oropharyngeal exudate. Eyes: EOM are normal. Pupils are equal, round, and reactive to light. Neck: Supple, no tracheal deviation. Cardiovascular: Normal rate, regular rhythm. No pulses appreciated in left foot with decreased cap refill. Pulmonary/Chest: Effort normal and breath sounds normal. No respiratory distress. Abdominal: Soft. No distension. There is no tenderness, rebound, or guarding. Bowel sounds present. Musculoskeletal: Decreased change in sensation to left foot and left ankle. Left foot is cold to touch. Neurological: AOx3. Grossly nonfocal exam. Skin: Warm and dry, no rashes or pallor appreciated. Left foot appears cyanotic. Psychiatric: Appropriate mood and affect. Behavior appears normal. Vital Signs Vital Signs Date Time Temp Pulse Resp B/P Pulse Ox O2 Delivery O2 Flow Rate FiO2 07/12/17 20:22 37.1 82 20 158/88 97 Room Air 07/12/17 17:12 37 89 20 165/93 97 Room Air Initial VS: Reviewed Interpretation & Diagnostics US VEINOUS LEG DUPLEX UNILATERAL, LEFT IMPRESSION: Occlusive thrombus is present in the deep veins of the left thigh. Dictated by: Filiberto Joe M.D. on 07/12/2017 at 19:03 Approved by: Filiberto Joe M.D. on 07/12/2017 at 19:12 US DUPLEX DOPPLER UNILATERAL LEG ARTERIES, LEFT IMPRESSION: The common femoral artery shows abnormal flow consistent with prominent obstruction peripherally but possibly indicating some inlet obstruction more proximally. From the mid thigh distally there is no flow in the arterial vasculature Dictated by: Filiberto Joe M.D. on 07/12/2017 at 18:55 Approved by: Filiberto Joe M.D. on 07/12/2017 at 19:03 Lab Results Interpretation Result Diagram: 07/12/17 1754 07/12/17 1754 Test 07/12/17 17:54 07/12/17 18:54 07/12/17 19:29 White Blood Count 11.3th/mm3 (3.8-10.1) Red Blood Count 4.23mil/mm3 (4.40-5.80) Hemoglobin 13.4g/dL (13.8-17.2) Hematocrit 39.9% (41.0-50.0) Mean Corpuscular Volume 94.3fL (81-100) Mean Corpuscular Hemoglobin 31.7pg (27.0-35.0) Mean Corpuscular Hemoglobin Concent 33.6% (32.0-37.0) Red Cell Distribution Width 14.1% (12.3-15.4) Platelet Count 261bil/L (150-400) Neutrophils (%) (Auto) 71.2% (40-74) Lymphocytes (%) (Auto) 14.3% (14-46) Monocytes (%) (Auto) 9.7% (4-12) Eosinophils (%) (Auto) 3.9% (0-5) Basophils (%) (Auto) 0.5% (0-3) Prothrombin Time 10.5sec (8.1-12.5) Prothromb Time International Ratio 0.98ratio Sodium Level 134mEq/L (134-144) Potassium Level 4.9mEq/L (3.5-5.2) Chloride Level 96mEq/L (97-108) Carbon Dioxide Level 23mmol/L (18-29) Blood Urea Nitrogen 11mg/dL (8-27) Creatinine 0.73mg/dL (0.76-1.27) Estimat Glomerular Filtration Rate 116mL/min (>59) Glucose Level 111mg/dL (60-99) Calcium Level 9.6mg/dL (8.5-10.1) Total Bilirubin 0.2mg/dL (0.0-1.2) Aspartate Amino Transf (AST/SGOT) 46U/L (0-50) Alanine Aminotransferase (ALT/SGPT) 56U/L (0-44) Alkaline Phosphatase 61U/L (25-160) Total Protein 7.4g/dL (6.4-8.4) Albumin 3.8g/dL (3.4-5.0) Lactic Acid Level 1.2mmol/L (0.4-2.0) Hold [place] Top Tube Received (Received) Activated Partial Thromboplast Time 30.0sec (22.8-33.0) Re-Eval/Medical Decision Med Decision/Clinical Course In summary, 62-year-old male with a past medical history notable for severe peripheral vascular disease presenting to the ED for evaluation of left foot pain. Differential includes DVT, peripheral arterial disease/occlusion, cellulitis, fracture, etc. He has had no trauma to the area and has no bony tenderness to palpation. Upon my initial evaluation of the patient, he has no palpable or dopplerable DP/PT pulses. Immediately made consultations as per below and prepared for anticoagulation. He is also already on anticoagulation for DVT/PE. Laboratory studies reviewed; CMP grossly within normal limits with the exception of a mildly elevated ALT, CBC with a white blood cell count of 11.3 and hemoglobin of 13.4, otherwise grossly within normal limits. Ultrasound of the patient's left lower extremity demonstrates an occlusive thrombus in the deep veins of the left thigh, as well as occlusion of the arterial vasculature from the mid thigh down towards the foot. Patient was started on a heparin drip and transferred to the nearest vascular surgeon for further management and evaluation as per below. Patient given IV narcotics here in the ED with minimal relief in symptoms. Patient agreeable to the plan as stated, no further questions. Source of Hx: Old records Time of Eval: 19:09 Re-Evaluation/Progress Note: Pt rechecked. Performed physical exam. Discussed plan for transfer to [facility]. Pt understands and agrees with plan. All questions addressed. Consultation #1: Referral / Consult Name: Rodrigo Levine MD Consulted With: Cardiology Call Returned at: 18:35 Family Life Educator: Agrees with eval Note: Discussed pt's case with microfilm operator, Dr. Levine. He recommends calling surgery. Consultation #2: Referral / Consult Name: Berta Bond MD Consulted With: Trauma surgeon Call Returned at: 18:37 Family Life Educator: Agrees with eval Note: Discussed pt's case with trauma surgeon, Dr. Bond. She recommends calling [place] [facility]. Consultation #3: Call Returned at: 18:50 Note: Discussed pt's case with vascular surgeon, Dr. Geoffrey Small, at [facility]. He recommends a heparin drip and transfer. Counseled Regarding: Diagnosis, Lab results, Need for transfer Discharge & Departure Primary Impression: Arterial occlusion, lower extremity Additional Impression: Venous thromboembolism of lower extremity Disposition: Transfer, Acute Care Facility Discharge Condition All VS Reviewed: Yes Condition: Stable Referrals: Nitza Diamond DO (PCP) Crit Care Except Billable Proc Time Spent: 30-74 minutes (45 minutes) Services Performed: Patient management by me, Time spent at bedside, Reviewing test results, Reviewing imaging, Discussing patient care, Documentation in record, Time with fam/surrogate Critical Care Notes: Please see MDM. 45 minutes of critical care time were spent in the management of this patient. Scribe Attestation Portions of this note were transcribed by Pao Christianson. I, Dr. Call, personally performed the history, physical exam and medical decision-making; I reviewed and confirmed the accuracy of the information in the transcribed note. copies to: Nitza Diamond William B MD Jul 12, 2017 18:43 Pao Christianson 10, 2017 18:52
[2017-07-12 18:48] LABS: INR 0.98 ratio
[2017-07-12] MEDS ORDERED: Heparin 25K Unit/500mL 0.45 NS 25,000 UNIT in IV Premix 1 EACH IV ONE (19:00)
[2017-07-12] MEDS ORDERED: Heparin 5,000 Unit/mL Inj IVPUSH ONE (19:00)
[2017-07-12] MEDS ORDERED: HYDROmorphone 1 mg/mL Inj IVPUSH PRN (19:05)
--- NOTE | 2017-07-12 19:05 | DRSVH ---
PROCEDURE: US DUPLEX DOPPLER UNILATERAL LEG ARTERIES, LEFT INDICATIONS: blue foot, h/o DVT/PE, arterial and venous TECHNIQUE: Color and pulse Doppler interrogation was performed of the left lower extremity arterial system, with image documentation. COMPARISON: None. FINDINGS: Vascular Ultrasound Procedure Report Findings(Artery of Lower Extremity)(Left) Common Femoral Artery(Distal) Velocity: 65 cm/s and monophasic flow. Profunda Femoris Artery(Proximal) Velocity: 25.10 cm/s Superficial Femoral Artery(Proximal) Velocity: 67.10 cm/s Superficial Femoral Artery(Mid-longitudinal) Velocity: No flow Superficial Femoral Artery(Distal) Velocity: No flow Popliteal Artery(Mid-longitudinal) Velocity: No flow Posterior Tibial Artery(Distal) Velocity: No flow Dorsalis Pedis Artery(Distal) Velocity: No flow IMPRESSION: The common femoral artery shows abnormal flow consistent with prominent obstruction peripherally but possibly indicating some inlet obstruction more proximally. From the mid thigh distally there is no flow in the arterial vasculature * * Dictated by: Filiberto Joe M.D. on 07/12/2017 at 18:55 Approved by: Filiberto Joe M.D. on 07/12/2017 at 19:03
--- NOTE | 2017-07-12 19:14 | DRSVH ---
PROCEDURE: US VEINOUS LEG DUPLEX UNILATERAL, LEFT INDICATIONS: blue foot, h/o DVT/PE, arterial and venous TECHNIQUE: Real-time imaging, as well as color and pulse Doppler interrogation, were performed of the lower extr emity deep veins from the inguinal ligament to the popliteal fossa. COMPARISON: None. FINDINGS: There is echogenic noncompressible deep vein from the common femoral vein proximally down t o the popliteal vein in the left leg. There is some flow in the region of the popliteal vein. IMPRESSION: Occlusive thrombus is present in the deep veins of the left thigh. Dictated by: Filiberto Joe M.D. on 07/12/2017 at 19:03 Approved by: Filiberto Joe M.D. on 07/12/2017 at 19:12
[2017-07-12 20:22] VITALS: BP 158/88; PULSE 82; RESP 20; O2SAT 97
== END 2017-07-12 20:26 | disposition short-term general hospital (02) ==
LOC: SED 16:53
DX: I74.3 Embolism and thrombosis of arteries of the lower extremities (principal); I82.412 Acute embolism and thrombosis of left femoral vein; F17.200 Nicotine dependence, unspecified, uncomplicated; I25.10 Atherosclerotic heart disease of native coronary artery without angina pectoris; Z86.718 Personal history of other venous thrombosis and embolism; Z85.118 Personal history of other malignant neoplasm of bronchus and lung; Z79.51 Long term (current) use of inhaled steroids
CPT/HCPCS: 36415; 80053; 83605; 85025; 85610; 85730; 93926; 93970; 96361; 96374; 96375; 96376; 99291; J1170; J1644; J2405; J7030